=== PATIENT | male | born 1955 | race Caucasian/White ===

== ENCOUNTER 2022-02-15 14:22 | Inpatient (IN) ==
[2022-02-15] MEDS ORDERED: ONDANSETRON INJ 2 MG/ML 2 ML VIAL IV STA (14:28)
[2022-02-15] MEDS ORDERED: ONDANSETRON INJ 2 MG/ML 2 ML VIAL IV ONE (14:30)
[2022-02-15] MEDS ORDERED: HEPARIN (PORCINE) 1000 UNIT/ML 10 ML (CATH LAB USE ONLY) ONE (14:31)
[2022-02-15] MEDS ORDERED: fentaNYL citrate 100 MCG/2 ML VIAL ONE (14:31)
[2022-02-15] MEDS ORDERED: MIDAZOLAM HCL 1 MG/ML 2ML VIAL ONE (14:31)
[2022-02-15] MEDS ORDERED: niCARdipine HCL INJ 2.5 MG/ML 10 ML AMP ONE (14:31)
[2022-02-15] MEDS ORDERED: NITROGLYCERIN/D5W 100MCG/ML 20ML SYR ONE (14:33)
[2022-02-15] MEDS ORDERED: LIDOCAINE 1% LOCAL 20 ML VIAL ONE (14:36)
[2022-02-15] MEDS ORDERED: STAT IV Infusion **Titration per Protocol STA ×2 (14:37→15:16)
[2022-02-15] MEDS ORDERED: NITROGLYCERIN SL 0.4 MG/TAB TAB SL STA (14:43)
[2022-02-15] MEDS ORDERED: dilTIAZem HCL 125 MG in DEXTROSE 5% 100 ML IV SCH (14:45)
--- NOTE | 2022-02-15 14:48 | Emergency Department Note ---
Impression & Plan Cardiac arrest due to underlying cardiac condition, Atrial fibrillation with RVR, Chest pain, Elevated LFTs ED Provider Note Provider: Stanislaw Kimble MD DATE OF SERVICE: 02/15/2022 CHIEF COMPLAINT: Chest pain, cardiac arrest HISTORY OF PRESENT ILLNESS: Patient is a 66-year-old gentleman reported history of atrial fibrillation on sotalol and Xarelto evidently today was playing golf. At a golf course in [facility] [place] and began to experience chest pain. Patient evidently collapsed at that point and received approximately 5 to 6 minutes of CPR. Patient was shocked by an AED once and had return of pulses and awakened. Evidently was hypotensive initially for EMS and [facility] was activated. They given 2 and half liters of IV fluid as well as a heparin bolus and was brought here for possible cardiac intervention. There is concern on the prehospital EKG for an inferior STEMI and a heart was called initially. Patient had some nausea and received Zofran in route. Patient upon arrival without chest pain. Patient later complained of a little bit of right-sided chest discomfort and again had some nausea requiring Zofran. Patient denies a history of cardiac catheterization to his knowledge but states they were considering doing an ablation on him due to his refractory A. fib. Patient had prior cardiac care in [place]. Patient received aspirin prior to arrival. Patient denies other URI symptoms or abdominal pain. REVIEW OF SYSTEMS: A total of 10 review of systems was obtained and negative except as stated above in the HPI. PAST MEDICAL HISTORY: As noted above MEDICATIONS: Reviewed home medications with the patient include sotalol and Xarelto SOCIAL HISTORY: Former smoker, PHYSICAL EXAM: GENERAL: alert and oriented on the stretcher Head: normocephalic and atraumatic EYES: No injection, discharge or icterus. PERRL, EOMI. NECK: Trachea midline. Supple. ENT: Mucous membranes pink and moist. Pharynx without erythema or exudate. LUNGS: Airway patent. No retractions. Breath sounds clear with good air entry bilaterally. HEART: Regular rate and rhythm. No chest wall tenderness ABDOMEN: Soft and non-tender, without guarding or rebound. SKIN: Acyanotic, warm, dry, without rashes EXTREMITIES: Without swelling, tenderness or deformity NEUROLOGICAL: No focal deficits. No aphasia. No facial droop or slurred speech. Normal strength and tone in the extremities. Sensation to gross touch normal. Ambulatory. EK bpm atrial fibrillation with rapid ventricular sponsor occasional PVC. No acute ST segment elevation with ST depressions inferiorly and anteriorly with QTC 532. EK bpm atrial fibrillation with rapid ventricular response. Compared to previous persistent inferior anterior ST depressions EK bpm atrial fibrillation occasional PVC. Continued inferior lateral ST depression. QTc 504. CONTINUOUS CARDIAC MONITORING: was ordered and showed a heart rate of 80s-120s bpm in atrial fibrillation Patient's laboratory studies and imaging reviewed. Differential includes Cardiac ischemia, aortic dissection, pulmonary embolism, pneumothorax, pneumonia, pericarditis, myocarditis, esophageal rupture, GERD, cholecystitis, pancreatitis, musculoskeletal, as well as other pathologies. IMPRESSION/MEDICAL DECISION MAKING: Patient history of A. fib. Rapid A. fib upon arrival and nauseous. Little bit of right-sided chest pain develops while here. service porter at bedside his heart alert was called prior to arrival. EKG at 1424 and 1430 reviewed with the residential pest control technician at bedside this represents atrial fibrillation with low ventricular spots but does not believe the patient at this time needs a cardiac catheterization at this time the patient's with minimal pain and he does not believe there is an acute STEMI. He recommended diltiazem. This drip was ordered for some rate control. Given with a nitro as he does develop little bit of chest pain. Blood work was sent. Patient's pressure initially reported as high later returns low and diltiazem was held and received some IV fluids. Call was placed to Cardiology Dr. Howard and a stat cardiac echo was ordered. Blood work without anemia or leukocytosis. Negative COVID. Some hyponatremia noted with some renal dysfunction with creat inine 1.8. Some AST and ALT elevation noted with bilirubin 2.5. Again denies significant abdominal pain. Lipase minimally elevated. Question however if this is related to the arrest situation. Hypotensive here but will be cautious given his A. fib to prevent significant arrhythmia. High-sensitivity does return elevated although patient's pain is resolved. Cardiology at bedside with the patient and states that his echo did not show any regional wall motion abnormalities with a good EF. Norepinephrine ggt is at bedside NOT on; again maintaining MAP above 65 here. Hospitalist updated. Patient pain-free. updated later when she arrives. Cardiology recommends heparin and ICU care. DIAGNOSIS: Cardiac arrest, atrial fibrillation with rapid ventricular response, elevated LFTs, chest pain DISPOSITION: Hospitalist will evaluate Patient was agreeable with this plan. Critical Care I have personally spent 62 minutes of critical care time in the direct management of this patient. This includes bedside care, interpretation of di agnostic studies, and testing, discussion with consultants, patient, and family members, and other required patient management activities. These 62 minutes is in excess of all separately billable procedures. Past Med/Surg History Social History Smoking Status: Former smoker Tobacco Type: Cigarettes Preferred Language: Gibralt[place] Feels Safe at Home: Yes Allergies Allergies Allergy/AdvReac Type Severity Reaction Status Date / Time No Known Allergies Allergy Unverified 02/15/22 15:15 Home Meds Home Medications Medication Instructions Recorded Confirmed ascorbic acid (vitamin C) 500 mg 500 mg PO DAILY 02/15/22 02/15/22 tablet (Vitamin C) cholecalciferol (vitamin D3) 25 25 mcg PO DAILY 02/15/22 02/15/22 mcg (1,000 unit) tablet (Vitamin D3) cyanocobalamin (vitamin B-12) 1,000 mcg IM MONTHLY 02/15/22 02/15/22 1,000 mcg/mL injection solution finasteride 5 mg tablet 5 mg PO DAILY 02/15/22 02/15/22 furosemide 40 mg tablet 40 mg PO DAILY 02/15/22 02/15/22 lisinopril 20 mg tablet 20 mg PO DAILY 02/15/22 02/15/22 rivaroxaban 20 mg tablet (Xarelto) 20 mg PO DAILY 02/15/22 02/15/22 sotalol 120 mg tablet 120 mg PO BID 02/15/22 02/15/22 Results & Data (ED) Vital Signs Vital Signs - 24 hr 02/15/22 14:33 02/15/22 14:40 02/15/22 14:41 Temperature 36.5 C Temperature Source Oral Pulse Rate 117 H 112 H 103 H Pulse Rate [Apical] Pulse Rate from SpO2 Sensor 111 H 123 H Pulse Rhythm Regular Pulse Strength Normal Respiratory Rate 15 18 19 Respiratory Effort / Characteristics Non-Labored Spontaneous Respiratory Depth Normal Blood Pressure Blood Pressure [Right Arm] Blood Pressure Mean Blood Pressure Mean [Right Arm] Pulse Oximetry 98 97 94 Oxygen Delivery Method Nasal Cannula Sepsis Recent Fever Within 48 Hours No Sepsis New/Unexplained Change in Mental Status No Sepsis Action Taken by Nursing No Action Required 02/15/22 14:43 02/15/22 14:46 02/15/22 14:50 Temperature Temperature Source Pulse Rate 105 H 112 H Pulse Rate [Apical] Pulse Rate from SpO2 Sensor 121 H 78 99 H Pulse Rhythm Pulse Strength Respiratory Rate 21 15 17 Respiratory Effort / Characteristics Respiratory Depth Blood Pressure 161/128 H 87/73 L Blood Pressure [Right Arm] Blood Pressure Mean 139 77 38 Blood Pressure Mean [Right Arm] Pulse Oximetry 86 L 95 94 Oxygen Delivery Method Sepsis Recent Fever Within 48 Hours Sepsis New/Unexplained Change in Mental Status Sepsis Action Taken by Nursing 02/15/22 14:55 02/15/22 14:57 02/15/22 15:00 Temperature Temperature Source Pulse Rate 110 H 92 H Pulse Rate [Apical] 97 H Pulse Rate from SpO2 Sensor 91 H 95 H Pulse Rhythm Pulse Strength Respiratory Rate 15 20 16 Respiratory Effort / Characteristics Non-Labored Respiratory Depth Normal Blood Pressure Blood Pressure [Right Arm] 80/35 L Blood Pressure Mean Blood Pressure Mean [Right Arm] 50 Pulse Oximetry 91 94 94 Oxygen Delivery Method Room Air Sepsis Recent Fever Within 48 Hours Sepsis New/Unexplained Change in Mental Status Sepsis Action Taken by Nursing 02/15/22 15:01 02/15/22 15:03 02/15/22 15:05 Temperature Temperature Source Pulse Rate 94 H 95 H 97 H Pulse Rate [Apical] Pulse Rate from SpO2 Sensor 96 H 91 H 99 H Pulse Rhythm Pulse Strength Respiratory Rate 19 18 15 Respiratory Effort / Characteristics Respiratory Depth Blood Pressure 89/70 L 92/68 L 94/80 L Blood Pressure [Right Arm] Blood Pressure Mean 76 76 84 Blood Pressure Mean [Right Arm] Pulse Oximetry 95 93 94 Oxygen Delivery Method Sepsis Recent Fever Within 48 Hours Sepsis New/Unexplained Change in Mental Status Sepsis Action Taken by Nursing 02/15/22 15:07 02/15/22 15:10 02/15/22 15:13 Temperature Temperature Source Pulse Rate 105 H 99 H 101 H Pulse Rate [Apical] Pulse Rate from SpO2 Sensor 95 H 94 H Pulse Rhythm Pulse Strength Respiratory Rate 20 21 16 Respiratory Effort / Characteristics Respiratory Depth Blood Pressure 79/57 L 72/47 L Blood Pressure [Right Arm] Blood Pressure Mean 64 55 Blood Pressure Mean [Right Arm] Pulse Oximetry 94 97 97 Oxygen Delivery Method Room Air Sepsis Recent Fever Within 48 Hours Sepsis New/Unexplained Change in Mental Status Sepsis Action Taken by Nursing 02/15/22 15:15 02/15/22 15:16 02/15/22 15:20 Temperature Temperature Source Pulse Rate 115 H 105 H 95 H Pulse Rate [Apical] Pulse Rate from SpO2 Sensor 107 H 103 H 97 H Pulse Rhythm Pulse Strength Respiratory Rate 18 27 H 28 H Respiratory Effort / Characteristics Respiratory Depth Blood Pressure 78/53 L Blood Pressure [Right Arm] Blood Pressure Mean 61 Blood Pressure Mean [Right Arm] Pulse Oximetry 94 94 99 Oxygen Delivery Method Sepsis Recent Fever Within 48 Hours Sepsis New/Unexplained Change in Mental Status Sepsis Action Taken by Nursing 02/15/22 15:22 02/15/22 15:25 02/15/22 15:30 Temperature Temperature Source Pulse Rate 104 H 91 H 100 H Pulse Rate [Apical] Pulse Rate from SpO2 Sensor 95 H 76 97 H Pulse Rhythm Pulse Strength Respiratory Rate 15 13 18 Respiratory Effort / Characteristics Respiratory Depth Blood Pressure 86/44 L 88/56 L 95/62 L Blood Pressure [Right Arm] Blood Pressure Mean 58 66 73 Blood Pressure Mean [Right Arm] Pulse Oximetry 98 95 98 Oxygen Delivery Method Sepsis Recent Fever Within 48 Hours Sepsis New/Unexplained Change in Mental Status Sepsis Action Taken by Nursing 02/15/22 15:35 02/15/22 15:36 02/15/22 15:37 Temperature Temperature Source Pulse Rate 117 H 116 H 110 H Pulse Rate [Apical] Pulse Rate from SpO2 Sensor 95 H 99 H 98 H Pulse Rhythm Pulse Strength Respiratory Rate 17 17 18 Respiratory Effort / Characteristics Respiratory Depth Blood Pressure 93/58 L Blood Pressure [Right Arm] Blood Pressure Mean 69 69 Blood Pressure Mean [Right Arm] Pulse Oximetry 97 96 96 Oxygen Delivery Method Sepsis Recent Fever Within 48 Hours Sepsis New/Unexplained Change in Mental Status Sepsis Action Taken by Nursing 02/15/22 15:40 02/15/22 15:41 02/15/22 15:43 Temperature Temperature Source Pulse Rate 96 H 102 H 99 H Pulse Rate [Apical] Pulse Rate from SpO2 Sensor 91 H 100 H 86 Pulse Rhythm Pulse Strength Respiratory Rate 20 22 20 Respiratory Effort / Characteristics Respiratory Depth Blood Pressure 68/53 L 89/63 L Blood Pressure [Right Arm] Blood Pressure Mean 58 71 Blood Pressure Mean [Right Arm] Pulse Oximetry 99 98 97 Oxygen Delivery Method Sepsis Recent Fever Within 48 Hours Sepsis New/Unexplained Change in Mental Status Sepsis Action Taken by Nursing 02/15/22 15:45 02/15/22 15:50 02/15/22 15:55 Temperature Temperature Source Pulse Rate 107 H 110 H 87 Pulse Rate [Apical] Pulse Rate from SpO2 Sensor 93 H 105 H 77 Pulse Rhythm Pulse Strength Respiratory Rate 22 23 16 Respiratory Effort / Characteristics Respiratory Depth Blood Pressure 96/52 L 87/54 L Blood Pressure [Right Arm] Blood Pressure Mean 66 65 Blood Pressure Mean [Right Arm] Pulse Oximetry 98 98 94 Oxygen Delivery Method Sepsis Recent Fever Within 48 Hours Sepsis New/Unexplained Change in Mental Status Sepsis Action Taken by Nursing 02/15/22 16:00 02/15/22 16:01 02/15/22 16:05 Temperature Temperature Source Pulse Rate 102 H 86 114 H Pulse Rate [Apical] Pulse Rate from SpO2 Sensor 93 H 87 91 H Pulse Rhythm Pulse Strength Respiratory Rate 22 19 17 Respiratory Effort / Characteristics Respiratory Depth Blood Pressure 106/52 L 102/74 Blood Pressure [Right Arm] Blood Pressure Mean 70 83 Blood Pressure Mean [Right Arm] Pulse Oximetry 95 96 96 Oxygen Delivery Method Sepsis Recent Fever Within 48 Hours Sepsis New/Unexplained Change in Mental Status Sepsis Action Taken by Nursing 02/15/22 16:10 02/15/22 16:11 02/15/22 16:15 Temperature Temperature Source Pulse Rate 98 H 102 H 102 H Pulse Rate [Apical] Pulse Rate from SpO2 Sensor 90 88 101 H Pulse Rhythm Pulse Strength Respiratory Rate 17 20 21 Respiratory Effort / Characteristics Respiratory Depth Blood Pressure 88/70 L Blood Pressure [Right Arm] Blood Pressure Mean 76 Blood Pressure Mean [Right Arm] Pulse Oximetry 95 96 97 Oxygen Delivery Method Sepsis Recent Fever Within 48 Hours Sepsis New/Unexplained Change in Mental Status Sepsis Action Taken by Nursing 02/15/22 16:17 02/15/22 16:20 02/15/22 16:25 Temperature Temperature Source Pulse Rate 106 H 96 H 99 H Pulse Rate [Apical] Pulse Rate from SpO2 Sensor 96 H 84 82 Pulse Rhythm Pulse Strength Respiratory Rate 19 18 19 Respiratory Effort / Characteristics Respiratory Depth Blood Pressure 89/66 L 92/61 L Blood Pressure [Right Arm] Blood Pressure Mean 73 71 Blood Pressure Mean [Right Arm] Pulse Oximetry 97 96 97 Oxygen Delivery Method Sepsis Recent Fever Within 48 Hours Sepsis New/Unexplained Change in Mental Status Sepsis Action Taken by Nursing 02/15/22 16:30 02/15/22 16:35 02/15/22 16:40 Temperature Temperature Source Pulse Rate 119 H 112 H 116 H Pulse Rate [Apical] Pulse Rate from SpO2 Sensor 95 H 87 108 H Pulse Rhythm Pulse Strength Respiratory Rate 22 20 19 Respiratory Effort / Characteristics Respiratory Depth Blood Pressure 92/72 L 101/72 Blood Pressure [Right Arm] Blood Pressure Mean 78 81 Blood Pressure Mean [Right Arm] Pulse Oximetry 95 95 100 Oxygen Delivery Method Sepsis Recent Fever Within 48 Hours Sepsis New/Unexplained Change in Mental Status Sepsis Action Taken by Nursing 02/15/22 16:41 02/15/22 16:45 02/15/22 16:50 Temperature Temperature Source Pulse Rate 112 H 104 H 115 H Pulse Rate [Apical] Pulse Rate from SpO2 Sensor 101 H 83 108 H Pulse Rhythm Pulse Strength Respiratory Rate Respiratory Effort / Characteristics Respiratory Depth Blood Pressure 87/68 L 99/71 L Blood Pressure [Right Arm] Blood Pressure Mean 74 80 Blood Pressure Mean [Right Arm] Pulse Oximetry 96 99 95 Oxygen Delivery Method Sepsis Recent Fever Within 48 Hours Sepsis New/Unexplained Change in Mental Status Sepsis Action Taken by Nursing 02/15/22 16:51 02/15/22 16:55 02/15/22 17:00 Temperature Temperature Source Pulse Rate 117 H 96 H 96 H Pulse Rate [Apical] Pulse Rate from SpO2 Sensor 98 H 84 84 Pulse Rhythm Pulse Strength Respiratory Rate Respiratory Effort / Characteristics Respiratory Depth Blood Pressure 105/77 99/77 L 103/79 Blood Pressure [Right Arm] Blood Pressure Mean 86 84 87 Blood Pressure Mean [Right Arm] Pulse Oximetry 98 97 99 Oxygen Delivery Method Sepsis Recent Fever Within 48 Hours Sepsis New/Unexplained Change in Mental Status Sepsis Action Taken by Nursing 02/15/22 17:05 02/15/22 17:10 02/15/22 17:11 Temperature Temperature Source Pulse Rate 101 H 107 H 88 Pulse Rate [Apical] Pulse Rate from SpO2 Sensor 99 H 88 Pulse Rhythm Pulse Strength Respiratory Rate 20 22 Respiratory Effort / Characteristics Respiratory Depth Blood Pressure 109/76 107/75 Blood Pressure [Right Arm] Blood Pressure Mean 87 85 Blood Pressure Mean [Right Arm] Pulse Oximetry 99 98 Oxygen Delivery Method Sepsis Recent Fever Within 48 Hours Sepsis New/Unexplained Change in Mental Status Sepsis Action Taken by Nursing Laboratory Data Result diagrams: 02/15/22 14:38 02/15/22 14:38 Lab Results 02/15/22 02/15/22 02/15/22 Range/Units 14:37 14:38 14:38 WBC 8.96 (4.8-10.8) K/uL RBC 4.58 L (4.7-6.1) M/uL Hgb 14.6 (14.0-18.0) g/dL POC Hgb (14.0-18.0) g/dl Hct 42.2 (42-52) % POC Hct (42-52) % MCV 92.1 (80-100) fL MCH 31.9 (25-34) pg MCHC 34.6 (32-36) g/dL RDW Std Deviation 46.4 H (36.4-46.3) fL RDW Coeff of Krystle 13.8 (11.5-14.5) % Plt Count 191 (130-400) K/uL MPV 13.0 H (7.4-10.4) fL Immature Gran % (Auto) 0.2 % Neut % (Auto) 75.4 % Lymph % (Auto) 14.8 % [place] % (Auto) 9.3 % Eos % (Auto) 0.1 % Baso % (Auto) 0.2 % Neut # (Auto) 6.75 H (1.4-6.5) K/uL Lymph # (Auto) 1.33 (1.2-3.4) K/uL [place] # (Auto) 0.83 H (0.11-0.59) K/uL Eos # (Auto) 0.01 (0-0.5) K/uL Baso # (Auto) 0.02 (0-0.2) K/uL Immature Gran # (Auto) 0.02 (0.00-0.02) K/uL PT Cancelled INR Cancelled APTT Cancelled PTT Ratio Cancelled POC Sodium (135-144) mmol/L Sodium (136-145) mmol/L POC Potassium (3.3-5.0) mmol/L Potassium (3.5-5.1) mmol/L POC Chloride (101-112) mmol/L Chloride (98-107) mmol/L Carbon Dioxide (21-32) mmol/L POC Total CO2 (24-31) mmol/L Anion Gap (3-11) POC Anion Gap (16-25) mmol/L POC BUN (7-18) mg/dl BUN (6-23) mg/dl Creatinine (0.6-1.4) mg/dl POC Creatinine (0.6-1.3) mg/dl Est Cr Clr Drug Dosing ml/min Est GFR ( Amer) ml/min Est GFR (Non-Af Amer) ml/min BUN/Creatinine Ratio (10-20) Glucose (70-99(Fasting)) mg/dl POC Glucose (other) (70-99) mg/dl Calcium (8.5-10.1) mg/dl POC Ioniz Calcium Naty (1.12-1.32) mmol/l Total Bilirubin (0.2-1.0) mg/dl AST (13-39) U/L ALT (7-52) U/L Alkaline Phosphatase (34-104) U/L Troponin I High Sens 803.4 H* (0-20) pg/ml Total Protein (6.0-8.3) gm/dl Albumin (3.4-5.0) gm/dl Globulin (2.5-4.0) gm/dl Albumin/Globulin Ratio (0.9-2) Lipase (11-82) U/L SARS-CoV-2, RNA, NAAT (NEGATIVE) 02/15/22 02/15/22 02/15/22 Range/Units 14:38 14:40 14:40 WBC (4.8-10.8) K/uL RBC (4.7-6.1) M/uL Hgb (14.0-18.0) g/dL POC Hgb 15.6 (14.0-18.0) g/dl Hct (42-52) % POC Hct 46 (42-52) % MCV (80-100) fL MCH (25-34) pg MCHC (32-36) g/dL RDW Std Deviation (36.4-46.3) fL RDW Coeff of Krystle (11.5-14.5) % Plt Count (130-400) K/uL MPV (7.4-10.4) fL Immature Gran % (Auto) % Neut % (Auto) % Lymph % (Auto) % [place] % (Auto) % Eos % (Auto) % Baso % (Auto) % Neut # (Auto) (1.4-6.5) K/uL Lymph # (Auto) (1.2-3.4) K/uL [place] # (Auto) (0.11-0.59) K/uL Eos # (Auto) (0-0.5) K/uL Baso # (Auto) (0-0.2) K/uL Immature Gran # (Auto) (0.00-0.02) K/uL PT INR APTT PTT Ratio POC Sodium 132 L (135-144) mmol/L Sodium 131 L (136-145) mmol/L POC Potassium 3.8 (3.3-5.0) mmol/L Potassium 3.8 (3.5-5.1) mmol/L POC Chloride 98 L (101-112) mmol/L Chloride 96 L (98-107) mmol/L Carbon Dioxide 22 (21-32) mmol/L POC Total CO2 22 L (24-31) mmol/L Anion Gap 13 H (3-11) POC Anion Gap 17.0 (16-25) mmol/L POC BUN 27 H (7-18) mg/dl BUN 28 H (6-23) mg/dl Creatinine 1.84 H (0.6-1.4) mg/dl POC Creatinine 2.0 H (0.6-1.3) mg/dl Est Cr Clr Drug Dosing 55.0 ml/min Est GFR ( Amer) 43.0 ml/min Est GFR (Non-Af Amer) 37.1 ml/min BUN/Creatinine Ratio 15.2 (10-20) Glucose 158 H (70-99(Fasting)) mg/dl POC Glucose (other) 167 H (70-99) mg/dl Calcium 7.6 L (8.5-10.1) mg/dl POC Ioniz Calcium Naty 0.92 L (1.12-1.32) mmol/l Total Bilirubin 2.5 H (0.2-1.0) mg/dl AST 618 H (13-39) U/L ALT 177 H (7-52) U/L Alkaline Phosphatase 370 H (34-104) U/L Troponin I High Sens (0-20) pg/ml Total Protein 5.6 L (6.0-8.3) gm/dl Albumin 2.7 L (3.4-5.0) gm/dl Globulin 2.9 (2.5-4.0) gm/dl Albumin/Globulin Ratio 0.9 (0.9-2) Lipase 149 H (11-82) U/L SARS-CoV-2, RNA, NAAT NEGATIVE (NEGATIVE) 02/15/22 Range/Units 16:11 WBC (4.8-10.8) K/uL RBC (4.7-6.1) M/uL Hgb (14.0-18.0) g/dL POC Hgb (14.0-18.0) g/dl Hct (42-52) % POC Hct (42-52) % MCV (80-100) fL MCH (25-34) pg MCHC (32-36) g/dL RDW Std Deviation (36.4-46.3) fL RDW Coeff of Krystle (11.5-14.5) % Plt Count (130-400) K/uL MPV (7.4-10.4) fL Immature Gran % (Auto) % Neut % (Auto) % Lymph % (Auto) % [place] % (Auto) % Eos % (Auto) % Baso % (Auto) % Neut # (Auto) (1.4-6.5) K/uL Lymph # (Auto) (1.2-3.4) K/uL [place] # (Auto) (0.11-0.59) K/uL Eos # (Auto) (0-0.5) K/uL Baso # (Auto) (0-0.2) K/uL Immature Gran # (Auto) (0.00-0.02) K/uL PT Cancelled INR Cancelled APTT Cancelled PTT Ratio Cancelled POC Sodium (135-144) mmol/L Sodium (136-145) mmol/L POC Potassium (3.3-5.0) mmol/L Potassium (3.5-5.1) mmol/L POC Chloride (101-112) mmol/L Chloride (98-107) mmol/L Carbon Dioxide (21-32) mmol/L POC Total CO2 (24-31) mmol/L Anion Gap (3-11) POC Anion Gap (16-25) mmol/L POC BUN (7-18) mg/dl BUN (6-23) mg/dl Creatinine (0.6-1.4) mg/dl POC Creatinine (0.6-1.3) mg/dl Est Cr Clr Drug Dosing ml/min Est GFR ( Amer) ml/min Est GFR (Non-Af Amer) ml/min BUN/Creatinine Ratio (10-20) Glucose (70-99(Fasting)) mg/dl POC Glucose (other) (70-99) mg/dl Calcium (8.5-10.1) mg/dl POC Ioniz Calcium Naty (1.12-1.32) mmol/l Total Bilirubin (0.2-1.0) mg/dl AST (13-39) U/L ALT (7-52) U/L Alkaline Phosphatase (34-104) U/L Troponin I High Sens (0-20) pg/ml Total Protein (6.0-8.3) gm/dl Albumin (3.4-5.0) gm/dl Globulin (2.5-4.0) gm/dl Albumin/Globulin Ratio (0.9-2) Lipase (11-82) U/L SARS-CoV-2, RNA, NAAT (NEGATIVE) Administered Medications Diltiazem HCl 125 mg/ Dextrose 125 mls @ 0 mls/hr IV .Q0M [facility]; Protocol Stop: 03/17/22 14:44 Last Titration: 02/15/22 15:12 Dose: 0 mg/hr, 0 mls/hr Documented by: [id number] Cosigned by: [id number] Admin: 02/15/22 14:53 Dose: 5 mg/hr, 5 mls/hr Documented by: [id number] Cosigned by: [id number] Heparin Sodium/Dextrose (Heparin Sodium/Dextrose) 25,000 units in 500 mls @ 36 mls/hr IV .[id number] [facility]; Protocol Stop: 03/17/22 16:14 Last Admin: 02/15/22 16:00 Dose: 1,800 units/hr, 36 mls/hr Documented by: [id number] Cosigned by: [id number] Discontinued Medications Fentanyl Citrate (Fentanyl Citrate 100 Mcg/2 Ml Vial) Confirm Administered Dose 100 mcg .ROUTE .STK-MED ONE Stop: 02/15/22 14:32 Last Admin: 02/15/22 16:04 Dose: Not Given Documented by: [id number] Heparin Sodium (Porcine) (Heparin (Porcine) 1000 Unit/Ml 10 Ml ([employer] Use Only)) Confirm Administered Dose 10,000 units .ROUTE .STK-MED ONE Stop: 02/15/22 14:32 Last Admin: 02/15/22 16:04 Dose: Not Given Documented by: [id number] Heparin Sodium/Dextrose (Heparin Iv Adult Wt-Based Standard *No* Bolus Protocol) 1 ea N/A ONE ONE; Protocol Stop: 02/15/22 15:48 Last Admin: 02/15/22 16:02 Dose: Not Given Documented by: [id number] Heparin Sodium/Dextrose (Heparin Iv Adult Wt-Based Standard *No* Bolus Protocol) 1 ea IV Q20M [facility]; Protocol Stop: 03/17/22 15:59 Last Admin: 02/15/22 16:19 Dose: Not Given Documented by: [id number] Admin: 02/15/22 16:02 Dose: Not Given Documented by: [id number] Heparin Sodium/Sodium Chloride (Heparin In Nss Infusion 1000 Unit/500 Ml (2 U/Ml) Bag) Confirm Administered Dose 3,000 units IV .STK-MED ONE Stop: 02/15/22 14:32 Last Admin: 02/15/22 16:04 Dose: Not Given Documented by: [id number] Sodium Chloride (Nss 1000ml) 1,000 mls @ 999 mls/hr IV .[id number] ONE Stop: 02/15/22 15:56 Last Infusion: 02/15/22 15:34 Dose: 0 mls/hr Documented by: [id number] Admin: 02/15/22 15:13 Dose: 999 mls/hr Documented by: [id number] Lidocaine HCl (Lidocaine 1% Local 20 Ml Vial) Confirm Administered Dose 20 ml .ROUTE .STK-MED ONE Stop: 02/15/22 14:37 Last Admin: 02/15/22 16:03 Dose: Not Given Documented by: [id number] Midazolam HCl (Midazolam Hcl 1 Mg/Ml 2ml Vial) Confirm Administered Dose 2 mg .ROUTE .STK-MED ONE Stop: 02/15/22 14:32 Last Admin: 02/15/22 16:03 Dose: Not Given Documented by: [id number] Nicardipine HCl (Nicardipine Hcl Inj 2.5 Mg/Ml 10 Ml Amp) Confirm Administered Dose 25 mg .ROUTE .STK-MED ONE Stop: 02/15/22 14:32 Last Admin: 02/15/22 16:03 Dose: Not Given Documented by: [id number] Nitroglycerin (Nitroglycerin Sl 0.4 Mg/Tab Tab) 0.4 mg SL NOW STA Stop: 02/15/22 14:44 Last Admin: 02/15/22 14:59 Dose: 0.4 mg Documented by: [id number] Nitroglycerin/Dextrose (Nitroglycerin/D5w 100mcg/Ml 20ml Syr) Confirm Administered Dose 2,000 mcg .ROUTE .STK-MED ONE Stop: 02/15/22 14:34 Last Admin: 02/15/22 16:03 Dose: Not Given Documented by: [id number] Norepinephrine Bitartrate (Norepinephrine/D5w 4 Mg/250 Ml) Confirm Administered Dose 4 mg IV .STK-MED ONE Stop: 02/15/22 15:14 Last Admin: 02/15/22 15:25 Dose: Not Given Documented by: [id number] Ondansetron HCl (Ondansetron Inj 2 Mg/Ml 2 Ml Vial) 4 mg IV NOW ONE Stop: 02/15/22 14:31 Last Admin: 02/15/22 14:32 Dose: 4 mg Documented by: [id number] Ondansetron HCl (Ondansetron Inj 2 Mg/Ml 2 Ml Vial) 4 mg IV NOW STA Stop: 02/15/22 14:29 Last Admin: 02/15/22 14:54 Dose: Not Given Documented by: [id number] Imaging Data Radiologist's Impression: Chest X-Ray 02/15/22 14:28 XR chest 1V portable CLINICAL HISTORY: Atypical chest pain. COMPARISON STUDY: No previous studies for comparison. FINDINGS: Lung volumes are normal. No pneumothorax or pleural effusion is noted. There is no consolidation. Moderate enlargement of the cardiac silhouette is noted. There is possible pulmonary vascular congestion. IMPRESSION: Cardiomegaly. Pulmonary vascular congestion without overt pulmonary edema. ACT 112: Negative or not required by law. Electronically signed by: Ike Avalos M.D. 02/15/2022 3:19 PM Discharge Plan Visit Data Chief Complaint: Heart Alert ED Provider: Stanislaw Kimble Discharge Problem: Cardiac arrest due to underlying cardiac condition, Atrial fibrillation with RVR, Chest pain, Elevated LFTs Patient Disposition: Admitted As Inpatient Discharge Instructions Interventions: ED Discharge Assessment Last Done: 02/15/22 17:23 Forms Stand Alone Forms: [email or web address] Prescriptions Prescriptions: No Action furosemide 40 mg Tablet 40 mg PO DAILY RF: 0 lisinopril 20 mg Tablet 20 mg PO DAILY RF: 0 sotalol 120 mg Tablet 120 mg PO BID RF: 0 ascorbic acid (vitamin C) [Vitamin C] 500 mg Tablet 500 mg PO DAILY RF: 0 cyanocobalamin (vitamin B-12) [Vitamin B-12] 1,000 mcg/mL Solution 1,000 mcg IM MONTHLY RF: 0 finasteride 5 mg Tablet 5 mg PO DAILY RF: 0 cholecalciferol (vitamin D3) [Vitamin D3] 25 mcg (1,000 unit) Tablet 25 mcg PO DAILY RF: 0 Xarelto 20 mg Tablet 20 mg PO DAILY RF: 0 Referrals Referrals: PCP,NO [Primary Care Provider] -
[2022-02-15 14:53] LABS: iSTAT Hemoglobin 15.6 g/dl (14.0-18.0); iSTAT Ionized Calcium 0.92 mmol/l (1.12-1.32); iSTAT Potassium 3.8 mmol/L (3.3-5.0)
[2022-02-15] MEDS ORDERED: SODIUM CHLORIDE 0.9% 1000ML 1,000 ML IV ONE (14:56)
[2022-02-15] MEDS ORDERED: NOREPINEPHRINE/D5W 4 MG/250 ML IV ONE (15:13)
--- NOTE | 2022-02-15 15:20 | XRay Report ---
XR chest 1V portable CLINICAL HISTORY: Atypical chest pain. COMPARISON STUDY: No previous studies for comparison. FINDINGS: Lung volumes are normal. No pneumothorax or pleural effusion is noted. There is no consolid ation. Moderate enlargement of the cardiac silhouette is noted. There is possible pulmonary vascular congestion. IMPRESSION: Cardiomegaly. Pulmonary vascular congestion without overt pulmonary edema. ACT 112: Negative or not required by law. Electronically signed by: Ike Avalos M.D. 02/15/2022 3:19 PM
[2022-02-15 15:25] LABS: Albumin Globulin Ratio 0.9 (0.9-2); Albumin Level 2.7 gm/dl (3.4-5.0); BUN Creatinine Ratio 15.2 (10-20); Bilirubin,Total 2.5 mg/dl (0.2-1.0); Calcium 7.6 mg/dl (8.5-10.1); Est GFR (Non-African American) 37.1 ml/min; Globulin 2.9 gm/dl (2.5-4.0); Potassium 3.8 mmol/L (3.5-5.1); Total Protein 5.6 gm/dl (6.0-8.3)
[2022-02-15 15:27] LABS: Basophils # (auto) 0.02 K/uL (0-0.2); Basophils % (auto) 0.2 %; Eosinophils # (auto) 0.01 K/uL (0-0.5); Eosinophils % (auto) 0.1 %; Hematocrit (blood only) 42.2 % (42-52); Hemoglobin 14.6 g/dL (14.0-18.0); Immature Granulocytes # (auto) 0.02 K/uL (0.00-0.02); Immature Granulocytes % (auto) 0.2 %; Lymphocytes # (auto) 1.33 K/uL (1.2-3.4); Lymphocytes % (auto) 14.8 %; Mean Corpuscular Hemoglobin 31.9 pg (25-34); Mean Corpuscular Hgb Conc 34.6 g/dL (32-36); Mean Corpuscular Volume 92.1 fL (80-100); Monocytes # (auto) 0.83 K/uL (0.11-0.59); Monocytes % (auto) 9.3 %; Neutrophils # (auto) 6.75 K/uL (1.4-6.5); Neutrophils % (auto) 75.4 %; Platelet Count 191 K/uL (130-400); RDW Coefficient of Variation 13.8 % (11.5-14.5); RDW Standard Deviation 46.4 fL (36.4-46.3); Red Blood Count 4.58 M/uL (4.7-6.1); White Blood Count 8.96 K/uL (4.8-10.8)
[2022-02-15] MEDS ORDERED: NOREPINEPHRINE/D5W 4 MG/250 ML PLCT IV SCH (15:30)
[2022-02-15] MEDS ORDERED: Heparin IV Adult Wt-Based Standard *NO* Bolus Protocol ONE (15:47)
[2022-02-15] MEDS: HEPARIN SODIUM/DEXTROSE 25,000 UNITS/500 ML BAG IV SCH (16:00)
[2022-02-15] MEDS: Heparin IV Adult Wt-Based Standard *NO* Bolus Protocol IV SCH ×3 (16:02→19:07)
--- NOTE | 2022-02-15 16:19 | Cardiology Consultation ---
Date of Consultation February 15, 2022 Assessment & Plan (1) Cardiac arrest due to underlying cardiac condition: (2) Atrial fibrillation with RVR: The patient should be admitted to the ICU post cardiac arrest. I would hold his Xarelto and start him on a heparin drip as you have done. Also, I w ould continue his sotalol 120 mg twice daily. The diltiazem infusion and Levophed can be weaned when appropriate. I would obtain cardiac markers for now provide supportive care. History of Present Illness History of Present Illness This is a 66-year-old male patient from [facility] [address]. He has a previous cardiac history that dates back to 2011 when he had his first episode of what he describes as atrial fibrillation and possibly heart failure however, he is not a great historian on this point. In any case, he has had a history of atrial fibrillation and was being treated in [place], [place]. According to the patient, he had been doing well on lisinopril metoprolol and Xarelto and then in 2019 he was admitted to the hospital with [facility]. During that admission he had atrial fibrillation and was started on 80 of sotalol twice daily and Xarelto which worked for a while and then he had a reoccurrence he had a reoccurrence and they increased the sotalol to 120 mg twice daily. He was scheduled for an A. fib ablation in [place] for February but at his last follow-up he was doing well and the decision was made to wait. The patient is an avid golfer. He was golfing earlier this week, played for several days and then Thursday he was not feeling well. He did not really feel that he had atrial fibrillation but just did not feel well. Today he was in [place] playing golf when he just did not feel well again He asked that he be taken back to [place] [facility]. An ambulance was called and while he was being transported to [facility] he arrested. According to the ER physician, he had approximately 5 minutes of CPR and eventually was defibrillated using in AED which identified a shockable rhythm. Rather than take him to [facility], [facility] was called and the patient was transported here. By the time he arrived here he was fully awake and alert. No significant chest pain other than from the cardioversion and CPR. Initially he was hypotensive but was given IV fluids and started on a diltiazem drip as well as Levophed eventually his heart rate improved as well as his blood pressure. He remains in a rate controlled atrial fibrillation. He denies shortness of breath orthopnea. He has had no lower extremity edema leading up to today. An echocardiogram performed in the emergency department shows no wall motion abnormalities of the left ventricle with preserved left ventricular systolic function. First set high-sensitivity troponin is 800. He is now admitted for further care. Allergies Allergy/AdvReac Type Severity Reaction Status Date / Time No Known Allergies Allergy Unverified 02/15/22 15:15 Home Medications Medication Instructions Recorded Confirmed Type ascorbic acid (vitamin C) 500 mg 500 mg PO DAILY 02/15/22 02/15/22 History tablet (Vitamin C) cholecalciferol (vitamin D3) 25 25 mcg PO DAILY 02/15/22 02/15/22 History mcg (1,000 unit) tablet (Vitamin D3) cyanocobalamin (vitamin B-12) 1,000 mcg IM MONTHLY 02/15/22 02/15/22 History 1,000 mcg/mL injection solution finasteride 5 mg tablet 5 mg PO DAILY 02/15/22 02/15/22 History furosemide 40 mg tablet 40 mg PO DAILY 02/15/22 02/15/22 History lisinopril 20 mg tablet 20 mg PO DAILY 02/15/22 02/15/22 History rivaroxaban 20 mg tablet (Xarelto) 20 mg PO DAILY 02/15/22 02/15/22 History sotalol 120 mg tablet 120 mg PO BID 02/15/22 02/15/22 History Patient History Social History Smoking Status: Former smoker Tobacco Type: Cigarettes Second Hand Exposure: No; Hx Alcohol Use: Yes Alcohol type: hard liquor Hx Substance Use: No Preferred Language: Malawian Communication Ability: Effective Wares Sorter Required: No Beliefs That Will Affect Care: None Current Living Situation: Spouse Feels Safe at Home: Yes Assistive Devices: Glasses Review of Systems Review of Systems: Review of Systems: See HPI for pertinent positives. All other 10 point review of systems are negative. Physical Exam Physical Exam: General: no acute distress and stated age Head: normocephalic, no masses, lesions, tenderness or abnormalities Eyes: conjunctiva are pink and non-injected, sclera clear Neck: supple, no adenopathy, no bruits, normal jugular venous pulse, no hepatojugular reflux Chest: normal shape and normal respiratory effort Lungs: clear to auscultation and percussion Cardiac Exam: - irregular rate & rhythm, no murmurs gallops or rubs - normal S1, normal S2 Pulses: 2(+) throughout Abdomen: abdomen soft, non-tender, no abnormal masses and no hepatosplenomegaly Musculoskeletal: no gait disturbance, no joint inflammation, no deforming arthritis Extremities: no edema and no cyanosis Neuro: grossly normal exam Results & Data ([facility]) Vital Signs (Past 12 Hours) Vital Signs Temp Pulse Pulse Resp BP BP Pulse Ox 02/15/22 15:07 105 H 20 94 02/15/22 14:57 97 H 20 80/35 L 94 02/15/22 14:50 112 H 17 94 02/15/22 14:46 105 H 15 87/73 L 95 02/15/22 14:43 21 161/128 H 86 L 02/15/22 14:41 36.5 C 103 H 19 94 02/15/22 14:40 112 H 18 97 02/15/22 14:33 117 H 15 98 Laboratory Results Laboratory Results - last 24 hr 02/15/22 02/15/22 02/15/22 14:37 14:38 14:38 WBC 8.96 RBC 4.58 L Hgb 14.6 POC Hgb Hct 42.2 POC Hct MCV 92.1 MCH 31.9 MCHC 34.6 RDW Std Deviation 46.4 H RDW Coeff of Krystle 13.8 Plt Count 191 MPV 13.0 H Immature Gran % (Auto) 0.2 Neut % (Auto) 75.4 Lymph % (Auto) 14.8 [place] % (Auto) 9.3 Eos % (Auto) 0.1 Baso % (Auto) 0.2 Neut # (Auto) 6.75 H Lymph # (Auto) 1.33 [place] # (Auto) 0.83 H Eos # (Auto) 0.01 Baso # (Auto) 0.02 Immature Gran # (Auto) 0.02 PT Cancelled INR Cancelled APTT Cancelled PTT Ratio Cancelled POC Sodium Sodium POC Potassium Potassium POC Chloride Chloride Carbon Dioxide POC Total CO2 Anion Gap POC Anion Gap POC BUN BUN Creatinine POC Creatinine Est Cr Clr Drug Dosing Est GFR ( Amer) Est GFR (Non-Af Amer) BUN/Creatinine Ratio Glucose POC Glucose (other) Calcium POC Ioniz Calcium Naty Total Bilirubin AST ALT Alkaline Phosphatase Troponin I High Sens 803.4 H* Total Protein Albumin Globulin Albumin/Globulin Ratio Lipase SARS-CoV-2, RNA, NAAT 02/15/22 02/15/22 02/15/22 14:38 14:40 14:40 WBC RBC Hgb POC Hgb 15.6 Hct POC Hct 46 MCV MCH MCHC RDW Std Deviation RDW Coeff of Krystle Plt Count MPV Immature Gran % (Auto) Neut % (Auto) Lymph % (Auto) [place] % (Auto) Eos % (Auto) Baso % (Auto) Neut # (Auto) Lymph # (Auto) [place] # (Auto) Eos # (Auto) Baso # (Auto) Immature Gran # (Auto) PT INR APTT PTT Ratio POC Sodium 132 L Sodium 131 L POC Potassium 3.8 Potassium 3.8 POC Chloride 98 L Chloride 96 L Carbon Dioxide 22 POC Total CO2 22 L Anion Gap 13 H POC Anion Gap 17.0 POC BUN 27 H BUN 28 H Creatinine 1.84 H POC Creatinine 2.0 H Est Cr Clr Drug Dosing 55.0 Est GFR ( Amer) 43.0 Est GFR (Non-Af Amer) 37.1 BUN/Creatinine Ratio 15.2 Glucose 158 H POC Glucose (other) 167 H Calcium 7.6 L POC Ioniz Calcium Naty 0.92 L Total Bilirubin 2.5 H AST 618 H ALT 177 H Alkaline Phosphatase 370 H Troponin I High Sens Total Protein 5.6 L Albumin 2.7 L Globulin 2.9 Albumin/Globulin Ratio 0.9 Lipase 149 H SARS-CoV-2, RNA, NAAT NEGATIVE Medications Administered Current Inpatient Medications Heparin Sodium/Dextrose (Heparin Iv Adult Wt-Based Standard *No* Bolus Protocol) 1 ea IV Q20M [facility]O; Protocol Stop: 03/17/22 15:59 Last Admin: 02/15/22 16:02 Dose: Not Given Documented by: Diltiazem HCl 125 mg/ Dextrose 125 mls @ 0 mls/hr IV .Q0M KEO; Protocol Stop: 03/17/22 14:44 Last Titration: 02/15/22 15:12 Dose: 0 mg/hr, 0 mls/hr Documented by: Norepinephrine Bitartrate (Levophed/D5w) 4 mg in 250 mls @ 24.938 mls/hr IV .Q10H2M [facility]; Protocol Stop: 03/17/22 15:29 Heparin Sodium/Dextrose (Heparin Sodium/Dextrose) 25,000 units in 500 mls @ 0.02 mls/hr IV .Q24H [facility]; Protocol Stop: 03/17/22 16:14 Last Admin: 02/15/22 16:00 Dose: 1,800 units/hr, 36 mls/hr Documented by:
--- NOTE | 2022-02-15 17:37 | Critical Care Consultation ---
Date of Consultation February 15, 2022 Assessment & Plan (1) Cardiac arrest due to underlying cardiac condition: Reason Critically Ill: 66-year-old male with significant cardiac past medical history who experienced a cardiac arrest today with successful return of spontaneous circulation PLAN: Resp: Wean oxygen as tolerated CV: Atrial fibrillation on systemic anticoagulation -reviewed cardiology consult -May require Life[facility] -Heparin at this time, discontinue Xarelto Fluids/Renal: Hyponatremia -diuretic induced vs mild hypervolemic hyponatremia -Echo reviewed Elevated creatinine -Acute kidney injury versus baseline renal disease: Unclear ID: No evidence of infectious etiology at this time GI/Nutrition: Transaminitis -Suspect ischemic etiology, will send hepatitis panel Heme: Type and screen ordered DVT prophylaxis: Heparin infusion Endocrine: ICU hyperglycemia protocol A1c pending Vascular access: Peripheral IVs Code Status: Full code Disposition: ICU (2) Atrial fibrillation with RVR: Supervising Physician Co-Signing Physician Notes I have personally spent 40 minutes of critical care time in the direct management of this patient. This is a life/limb threatening event. This includes time spent evaluating patient, direct bedside care, chart review, placing orders, interpretation of diagnostic studies, discussion with consultants, patient, and/or family members regarding treatment decisions, as well as other required patient management activities. This time is exclusive of all separately billable procedures, and teaching time and separate from and in addition to any other critical care service time. History of Present Illness Reason for Consultation: Status post cardiac arrest with return of spontaneous circulation Requesting Physician: Gold Quinn Attending Physician: Gold Quinn History of Present Illness Patient is a 64-year-old male with a previous past medical history of atrial fibrillation on systemic anticoagulation with Xarelto and CHF who presents after having chest pain while golfing and subsequently having a cardiac arrest. He was shocked 1 time by in the ED and had approximately 5 to 10 minutes of bystander CPR. He was transported by helicopter EMS to [facility]. He is from [facility] and was golfing at an outlying facility. While in the emergency department repeat EKG did not demonstrate significant ST abnormalities. He has been seen by cardiology and an echo has been obtained. He reports a remote history of smoking quit approximately 10 years ago Allergies Allergy/AdvReac Type Severity Reaction Status Date / Time No Known Allergies Allergy Unverified 02/15/22 15:15 Home Medications Medication Instructions Recorded Confirmed Type ascorbic acid (vitamin C) 500 mg 500 mg PO DAILY 02/15/22 02/15/22 History tablet (Vitamin C) cholecalciferol (vitamin D3) 25 25 mcg PO DAILY 02/15/22 02/15/22 History mcg (1,000 unit) tablet (Vitamin D3) cyanocobalamin (vitamin B-12) 1,000 mcg IM MONTHLY 02/15/22 02/15/22 History 1,000 mcg/mL injection solution finasteride 5 mg tablet 5 mg PO DAILY 02/15/22 02/15/22 History furosemide 40 mg tablet 40 mg PO DAILY 02/15/22 02/15/22 History lisinopril 20 mg tablet 20 mg PO DAILY 02/15/22 02/15/22 History rivaroxaban 20 mg tablet (Xarelto) 20 mg PO DAILY 02/15/22 02/15/22 History sotalol 120 mg tablet 120 mg PO BID 02/15/22 02/15/22 History Patient History Social History Smoking Status: Former smoker Tobacco Type: Cigarettes Preferred Language: Croatian Feels Safe at Home: Yes Physical Exam Physical Exam: General: Alert. nontoxic. Skin: Warm, dry, Head: Atraumatic Ears, nose, mouth and throat: airway patent Cardiovascular: Normal peripheral perfusion Respiratory: no respiratory distress Gastrointestinal: Non distended Musculoskeletal: No deformity Results & Data Results & Data ([facility]) Vital Signs (Past 12 Hours) Vital Signs Temp Pulse Pulse Resp BP BP Pulse Ox 02/15/22 17:11 88 22 107/75 02/15/22 17:10 107 H 98 02/15/22 17:05 101 H 20 109/76 99 02/15/22 17:00 96 H 103/79 99 02/15/22 16:55 96 H 99/77 L 97 02/15/22 16:51 117 H 105/77 98 02/15/22 16:50 115 H 95 02/15/22 16:45 104 H 99/71 L 99 02/15/22 16:41 112 H 87/68 L 96 02/15/22 16:40 116 H 19 100 02/15/22 16:35 112 H 20 101/72 95 02/15/22 16:30 119 H 22 92/72 L 95 02/15/22 16:25 99 H 19 92/61 L 97 02/15/22 16:20 96 H 18 96 02/15/22 16:17 106 H 19 89/66 L 97 02/15/22 16:15 102 H 21 97 02/15/22 16:11 102 H 20 88/70 L 96 02/15/22 16:10 98 H 17 95 02/15/22 16:05 114 H 17 102/74 96 02/15/22 16:01 86 19 106/52 L 96 02/15/22 16:00 102 H 22 95 02/15/22 15:55 87 16 87/54 L 94 02/15/22 15:50 110 H 23 98 02/15/22 15:45 107 H 22 96/52 L 98 02/15/22 15:43 99 H 20 89/63 L 97 02/15/22 15:41 102 H 22 68/53 L 98 02/15/22 15:40 96 H 20 99 02/15/22 15:37 110 H 18 93/58 L 96 02/15/22 15:36 116 H 17 96 02/15/22 15:35 117 H 17 97 02/15/22 15:30 100 H 18 95/62 L 98 02/15/22 15:25 91 H 13 88/56 L 95 02/15/22 15:22 104 H 15 86/44 L 98 02/15/22 15:20 95 H 28 H 99 02/15/22 15:16 105 H 27 H 78/53 L 94 02/15/22 15:15 115 H 18 94 02/15/22 15:13 101 H 16 72/47 L 97 02/15/22 15:10 99 H 21 79/57 L 97 02/15/22 15:07 105 H 20 94 02/15/22 15:05 97 H 15 94/80 L 94 02/15/22 15:03 95 H 18 92/68 L 93 02/15/22 15:01 94 H 19 89/70 L 95 02/15/22 15:00 92 H 16 94 02/15/22 14:57 97 H 20 80/35 L 94 02/15/22 14:55 110 H 15 91 02/15/22 14:50 112 H 17 94 02/15/22 14:46 105 H 15 87/73 L 95 02/15/22 14:43 21 161/128 H 86 L 02/15/22 14:41 36.5 C 103 H 19 94 02/15/22 14:40 112 H 18 97 02/15/22 14:33 117 H 15 98 Critical Care Results & Data Vital Signs (Past 12 Hours) Vital Signs Temp Pulse Pulse Resp BP BP Pulse Ox 02/15/22 17:11 88 22 107/75 02/15/22 17:10 107 H 98 02/15/22 17:05 101 H 20 109/76 99 02/15/22 17:00 96 H 103/79 99 02/15/22 16:55 96 H 99/77 L 97 02/15/22 16:51 117 H 105/77 98 02/15/22 16:50 115 H 95 02/15/22 16:45 104 H 99/71 L 99 02/15/22 16:41 112 H 87/68 L 96 02/15/22 16:40 116 H 19 100 02/15/22 16:35 112 H 20 101/72 95 02/15/22 16:30 119 H 22 92/72 L 95 02/15/22 16:25 99 H 19 92/61 L 97 02/15/22 16:20 96 H 18 96 02/15/22 16:17 106 H 19 89/66 L 97 02/15/22 16:15 102 H 21 97 02/15/22 16:11 102 H 20 88/70 L 96 02/15/22 16:10 98 H 17 95 02/15/22 16:05 114 H 17 102/74 96 02/15/22 16:01 86 19 106/52 L 96 02/15/22 16:00 102 H 22 95 02/15/22 15:55 87 16 87/54 L 94 02/15/22 15:50 110 H 23 98 02/15/22 15:45 107 H 22 96/52 L 98 02/15/22 15:43 99 H 20 89/63 L 97 02/15/22 15:41 102 H 22 68/53 L 98 02/15/22 15:40 96 H 20 99 02/15/22 15:37 110 H 18 93/58 L 96 02/15/22 15:36 116 H 17 96 02/15/22 15:35 117 H 17 97 02/15/22 15:30 100 H 18 95/62 L 98 02/15/22 15:25 91 H 13 88/56 L 95 02/15/22 15:22 104 H 15 86/44 L 98 02/15/22 15:20 95 H 28 H 99 02/15/22 15:16 105 H 27 H 78/53 L 94 02/15/22 15:15 115 H 18 94 02/15/22 15:13 101 H 16 72/47 L 97 02/15/22 15:10 99 H 21 79/57 L 97 02/15/22 15:07 105 H 20 94 02/15/22 15:05 97 H 15 94/80 L 94 02/15/22 15:03 95 H 18 92/68 L 93 02/15/22 15:01 94 H 19 89/70 L 95 02/15/22 15:00 92 H 16 94 02/15/22 14:57 97 H 20 80/35 L 94 02/15/22 14:55 110 H 15 91 02/15/22 14:50 112 H 17 94 02/15/22 14:46 105 H 15 87/73 L 95 02/15/22 14:43 21 161/128 H 86 L 02/15/22 14:41 36.5 C 103 H 19 94 02/15/22 14:40 112 H 18 97 02/15/22 14:33 117 H 15 98 Lab & Micro Results (Past 24 Hours) RBC 4.58 M/uL (4.7-6.1) L 02/15/22 WBC 8.96 K/uL (4.8-10.8) 02/15/22 Hgb 14.6 g/dL (14.0-18.0) 02/15/22 Hct 42.2 % (42-52) 02/15/22 MCV 92.1 fL (80-100) 02/15/22 MCH 31.9 pg (25-34) 02/15/22 MCHC 34.6 g/dL (32-36) 02/15/22 RDW Standard Deviation 46.4 fL (36.4-46.3) H 02/15/22 RDW Coefficient of Variation 13.8 % (11.5-14.5) 02/15/22 Plt Count 191 K/uL (130-400) 02/15/22 MPV 13.0 fL (7.4-10.4) H 02/15/22 Neutrophils (%) (Auto) 75.4 % 02/15/22 Lymphocytes (%) (Auto) 14.8 % 02/15/22 Monocytes # (Auto) 0.83 K/uL (0.11-0.59) H 02/15/22 Eosinophils # (Auto) 0.01 K/uL (0-0.5) 02/15/22 Immature Granulocyte % (Auto) 0.2 % 02/15/22 Neutrophils # (Auto) 6.75 K/uL (1.4-6.5) H 02/15/22 Lymphocytes # (Auto) 1.33 K/uL (1.2-3.4) 02/15/22 Monocytes # (Auto) 0.83 K/uL (0.11-0.59) H 02/15/22 Eosinophils # (Auto) 0.01 K/uL (0-0.5) 02/15/22 Basophils # (Auto) 0.02 K/uL (0-0.2) 02/15/22 Immature Granulocyte # (Auto) 0.02 K/uL (0.00-0.02) 02/15/22 Na 131 mmol/L (136-145) L 02/15/22 K 3.8 mmol/L (3.5-5.1) 02/15/22 Cl 96 mmol/L (98-107) L 02/15/22 CO2 22 mmol/L (21-32) 02/15/22 Anion Gap 13 (3-11) H 02/15/22 BUN 28 mg/dl (6-23) H 02/15/22 Creatinine 1.84 mg/dl (0.6-1.4) H 02/15/22 Estimated GFR ( Amer) 43.0 ml/min 02/15/22 Estimated GFR (Non-Af Amer) 37.1 ml/min 02/15/22 BUN/Creatinine Ratio 15.2 (10-20) 02/15/22 Glu 158 mg/dl (70-99(Fasting)) H 02/15/22 Ca 7.6 mg/dl (8.5-10.1) L 02/15/22 Total Bilirubin 2.5 mg/dl (0.2-1.0) H 02/15/22 AST 618 U/L (13-39) H 02/15/22 ALT 177 U/L (7-52) H 02/15/22 Alkaline Phosphatase 370 U/L (34-104) H 02/15/22 TP 5.6 gm/dl (6.0-8.3) L 02/15/22 Albumin 2.7 gm/dl (3.4-5.0) L 02/15/22 Globulin 2.9 gm/dl (2.5-4.0) 02/15/22 Albumin/Globulin Ratio 0.9 (0.9-2) 02/15/22 Calcium Level 7.6 mg/dl (8.5-10.1) L 02/15/22 14:38 02/15/22 Prothromb Time International Ratio Pending 02/15/22 17:05 02/15/22 Diagnostic Findings (Past 24 Hours) Chest X-Ray 02/15/22 14:28 XR chest 1V portable CLINICAL HISTORY: Atypical chest pain. COMPARISON STUDY: No previous studies for comparison. FINDINGS: Lung volumes are normal. No pneumothorax or pleural effusion is noted. There is no consolidation. Moderate enlargement of the cardiac silhouette is noted. There is possible pulmonary vascular congestion. IMPRESSION: Cardiomegaly. Pulmonary vascular congestion without overt pulmonary edema. ACT 112: Negative or not required by law. Electronically signed by: Ike Avalos M.D. 02/15/2022 3:19 PM I & O Totals 24 Hours 02/14/22 02/15/22 02/16/22 06:59 06:59 06:59 Intake Total 1001.583 / 1001.583 Balance 1001.583 / 1001.583 Cumulative 02/15/22 14:06 thru 02/15/22 15:34 Intake Total 1001.583 Balance 1001.583 RT Ventilator Mngmt (Last Documented) Ventilator Ordered Settings Respiratory Rate 22 02/15/22 17:11 Ventilator - PT Measurements Respiratory Rate 22 Coding Level of Care Code Critical Care 1st 30-74 mins Diagnoses Cardiac arrest due to underlying cardiac condition I46.2 Atrial fibrillation with RVR I48.91
--- NOTE | 2022-02-15 17:41 | History and Physical Report ---
DATE OF ADMISSION: 02/15/2022. CHIEF COMPLAINT: Status post cardiac arrest. HISTORY OF PRESENT ILLNESS: A 66-year-old male with past medical history significant for atrial fibrillation, history of hypertension, BPH, possible CHF comes with cardiac arrest. The patient is currently alert and awake. The patient says he was playing golf tournament at [employer] in [facility] by [place] and began to have getting chest pain like 5/10 right-sided chest pain that radiated to the right arm and at that point, he had a cardiac arrest. At the time of cardiac arrest he received 5-6 minutes of CPR and one shock by AED and return of pulses and the patient awakened and he was life flighted here. Initially, he was hypotensive, given fluid boluses and started on iv heparin. Initially there was concern for inferior ST-elevation WA, heart alert was called, Interventional Cardiology on-call saw the patient and thought no acute ST elevation WA and he was advised to treat rapid AFib. Initially Cardizem drip was recommended but then blood pressures dropped and then Cardizem was stopped.order caller [facility] saw the patient, echo was ordered- seems ok. Patient is negative for COVID and plan is to monitor in the ICU. To Follow the serial cardiac enzymes. The patient currently alert and orienetd and has minimal chest discomfort. Denies any headache, no dizziness, no blurred visions, no earache, no runny nose, no sore throat. He had on and off epistaxis last episode 1 week ago. When he came into the ER, he was profusely sweating. Denies any recent fever or chills. He says he is drinking adequate amount of water, no shortness of breath, no nausea or vomiting. No abdominal pain, no diarrhea or constipation. Has some swelling in the legs. He did not have a sleep study, but he thinks he might have sleep apnea. He was diagnosed with CHF and AFib in 2012 and he was placed on lisinopril, Lasix and metoprolol. He did okay until one year ago when his AFib started acting up and there was plan for ablation, but he was started on sotalol in place of on metoprolol and he was doing fine and ablation was not planned. PAST MEDICAL HISTORY: As mentioned above. PAST SURGICAL HISTORY: Cardiac catheterization long-term back when he was first diagnosed AFib, knee arthroscopy, hemorrhoid surgery. MEDICATIONS: The patient is on vitamin C 500 mg p.o. daily, vitamin D 25 mcg p.o. daily, vitamin B12 1000 mcg IM monthly, finasteride 5 mg p.o. daily, Lasix 40 mg p.o. daily, lisinopril 20 mg p.o. daily, Xarelto 20 mg p.o. daily, sotalol 120 mg p.o. b.i.d. FAMILY HISTORY: Currently not available. SOCIAL HISTORY: Quit smoking 20 years ago. Drinks 2-4 shots of whiskey daily, lives with his . REVIEW OF SYSTEMS: As per HPI. Rest of review of systems is negative. PHYSICAL EXAMINATION: GENERAL: The patient is morbidly obese, patient is not in acute distress. VITAL SIGNS: Temperature 36.5, pulse 96, respiratory rate 18, blood pressure 89/66, oxygen 96% on room air. HEENT: Pupils equal, round and reactive to light. Oral mucosa moist. LUNGS: No JVD, no neck masses. CARDIOVASCULAR: S1 and S2 heard. Regular rate and rhythm. No murmur, no gallop. RESPIRATORY SYSTEM: Normal AP diameter. No accessory muscle use. No wheezing, no crackles. ABDOMEN: Soft. Bowel sounds are present, nontender, no distention. CENTRAL NERVOUS SYSTEM: Cranial nerves II-XII grossly intact, nonfocal. EXTREMITIES: Lower extremity pedal edema present, no erythema seen. LABORATORY: WBC 8.9, hemoglobin 14.6, hematocrit 42.2, platelets 191. Sodium 131, potassium 3.8, chloride 96, CO2 22, BUN 28, creatinine 1.8, serum glucose 158, calcium 7.6, total bilirubin 2.5, AST of 618, ALT 177, alkaline phosphatase 70. Troponin I high sensitivity 803. Lipase 149. SARS-CoV-2 RNA negative. IMAGING: Chest x-ray: Cardiomegaly, pulmonary vascular congestion without overt pulmonary edema. EKG: Initial EKG when he came in showing atrial fibrillation with rapid ventricular response at a rate of 104, history of depression in the inferior and lateral leads. ASSESSMENT AND PLAN: This is a 66-year-old male who presents with cardiac arrest. 1. Cardiac arrest, etiology unclear, probably non-ST elevated myocardial infraction. EKG showed ST depression in inferior lateral leads. Troponin is 803. Evaluated by Interventional Cardiology and also General Cardiology. Plan will be IV heparin. Repeat cardiac enzymes and echo was done in the ER, seems to be okay. We will follow the final results. Closely monitor in the ICU.Will keep him npo if any plan for cath later. 2. Hypotension. Currently hypotensive . Getting fluids. We will closely monitor in the ICU. 3. Elevated LFTs with total bilirubin 2.5, AST 618, ALT 177, alkaline phosphatase 70 possibly from cardiac arrest. We will follow the repeat laboratories if not improving will get liver ultrasound. 4. Hyponatremia. Sodium 131. Getting fluids. We will follow the labs. 5. Acute kidney injury, creatinine 1.84. As per he has no kidney disease. getting fluids. Follow the repeat labs in the a.m. 6. Hypertension, currently hypotensive. Hold lisinopril and sotalol. We will monitor blood pressure. 7. Atrial fibrillation. Currently, patient is hypotensive so holding sotalol, getting IV heparin. Holding Xarelto. Close monitor. 8. Benign prostatic hyperplasia. On finasteride. 9. Deep venous thrombosis prophylaxis: On IV heparin. DISPOSITION: Closely monitor in the ICU. Level 1 full code. Job ID: [id number] MTDD
[2022-02-15 17:44] LABS: INR 2.2 (0.9-1.1); Partial Thromboplastin Ratio > 5.1; Prothrombin Time 22.4 Seconds (9.0-12.0)
[2022-02-15 17:53] LABS: Partial Thromboplastin Time > 139.0 Seconds (21.0-31.0)
[2022-02-15] MEDS ORDERED: ICU PROTOCOL FOR HYPERGLYCEMIA PRN (18:14)
[2022-02-15] MEDS: SODIUM CHLORIDE 0.9% 1000ML 1,000 ML IV SCH (20:13)
[2022-02-15 20:21] LABS: Partial Thromboplastin Ratio > 5.1
[2022-02-15 20:27] LABS: Partial Thromboplastin Time > 139.0 Seconds (21.0-31.0)
[2022-02-15] MEDS ORDERED: ACETAMINOPHEN 325 MG TAB PO PRN (21:55)
[2022-02-15 21:58] LABS: Partial Thromboplastin Ratio 2.9
[2022-02-15 22:02] LABS: Partial Thromboplastin Time 79.1 Seconds (21.0-31.0)
[2022-02-16 04:06] LABS: Hemoglobin 13.4 g/dL (14.0-18.0); Mean Corpuscular Hemoglobin 31.5 pg (25-34); Mean Corpuscular Hgb Conc 34.4 g/dL (32-36); Mean Corpuscular Volume 91.8 fL (80-100); Mean Platelet Volume 11.9 fL (7.4-10.4); Platelet Count 147 K/uL (130-400); RDW Coefficient of Variation 14.2 % (11.5-14.5); RDW Standard Deviation 47.9 fL (36.4-46.3); Red Blood Count 4.25 M/uL (4.7-6.1)
[2022-02-16 04:26] LABS: Albumin Level 2.5 gm/dl (3.4-5.0); BUN Creatinine Ratio 15.8 (10-20); Bilirubin Direct 1.1 mg/dl (0-0.2); Bilirubin,Total 2.2 mg/dl (0.2-1.0); Calcium 7.3 mg/dl (8.5-10.1); Creatinine Clr Calc Pharmacy 54.1 ml/min; Est GFR (Non-African American) 37.1 ml/min; Magnesium 1.8 mg/dl (1.7-2.4); Phosphorus 4.3 mg/dl (2.5-4.9); Potassium 3.6 mmol/L (3.5-5.1); Total Protein 5.1 gm/dl (6.0-8.3)
[2022-02-16 04:40] LABS: Basophils # (auto) 0.01 K/uL (0-0.2); Basophils % (auto) 0.1 %; Echinocytes 3+; Eosinophils # (auto) 0.01 K/uL (0-0.5); Eosinophils % (auto) 0.1 %; Immature Granulocytes # (auto) 0.01 K/uL (0.00-0.02); Immature Granulocytes % (auto) 0.1 %; Lymphocytes # (auto) 1.58 K/uL (1.2-3.4); Lymphocytes % (auto) 22.9 %; Monocytes # (auto) 0.69 K/uL (0.11-0.59); Neutrophils % (auto) 66.8 %
[2022-02-16] MEDS: SODIUM CHLORIDE 0.9% 1000ML 1,000 ML IV SCH ×3 (04:52→20:34)
[2022-02-16 06:13] LABS: Partial Thromboplastin Ratio > 5.1
[2022-02-16 06:14] LABS: Partial Thromboplastin Time > 139.0 Seconds (21.0-31.0)
--- NOTE | 2022-02-16 08:52 | Cardiology Progress Note ---
Date of Service February 16, 2022 Assessment & Plan (1) Cardiac arrest due to underlying cardiac condition: (2) Atrial fibrillation with RVR: (3) Elevated troponin: Plan: As mentioned above, the patient is having chest wall pain from previous CPR which is increased with movement and deep inspiration. He did have an elevation in his cardiac troponins. Echocardiogram on admission showed no wall motion abnormalities with normal LV function however, given the circumstances of his cardiac arrest I believe we should eliminate ischemic heart disease and perform cardiac catheterization. That study will be performed tomorrow. I explained the risk, benefit and intent of the procedure to the patient and he is willing to proceed. I have also consulted electrophysiology. He was followed by an atrial fibrillation clinic in [place] and I would like to discuss options regarding his atrial fibrillation including whether or not sotalol should be continued. Finally, he is post cardiac arrest and consideration should be given to next steps including a secondary prevention ICD if indicated. Admission and Anticipated Discharge Date Admission Date: February 15, 2022 Subjective The patient had an uneventful night. He does have some chest pain but it is most likely chest wall from his the CPR that was performed. He has been given some Tylenol with improvement. Review of Systems Review of Systems: Review of Systems: See HPI for pertinent positives. All other 10 point review of systems are negative. Physical Exam Physical Exam: General: no acute distress and stated age Head: normocephalic, no masses, lesions, tenderness or abnormalities Eyes: conjunctiva are pink and non-injected, sclera clear Neck: supple, no adenopathy, no bruits, normal jugular venous pulse, no hepatojugular reflux Chest: normal shape and normal respiratory effort Lungs: clear to auscultation and percussion Cardiac Exam: - irregular rate & rhythm, no murmurs gallops or rubs - normal S1, normal S2 Pulses: 2(+) throughout Abdomen: abdomen soft, non-tender, no abnormal masses and no hepatosplenomegaly Musculoskeletal: no gait disturbance, no joint inflammation, no deforming arthritis Extremities: no edema and no cyanosis Neuro: grossly normal exam Results & Data ([facility]) Vital Signs (Past 12 Hours) Vital Signs Temp Pulse Resp BP Pulse Ox 02/16/22 04:23 101 H 19 132/81 99 02/16/22 04:00 105 H 19 97 02/16/22 03:00 89 14 111/74 97 02/16/22 02:00 98 H 19 125/86 98 02/16/22 01:00 117 H 17 116/79 98 02/16/22 00:01 94 H 21 111/82 98 02/16/22 00:00 88 15 97 02/15/22 23:15 90 02/15/22 23:00 106 H 16 114/84 97 02/15/22 22:01 36.7 C 102 H 19 106/81 97 02/15/22 22:00 106 H 19 97 02/15/22 21:00 97 H 17 138/114 H 98 Laboratory Results Laboratory Results - last 24 hr 02/15/22 02/15/22 02/15/22 14:35 14:37 14:38 WBC 8.96 RBC 4.58 L Hgb 14.6 POC Hgb Hct 42.2 POC Hct MCV 92.1 MCH 31.9 MCHC 34.6 RDW Std Deviation 46.4 H RDW Coeff of Krystle 13.8 Plt Count 191 MPV 13.0 H Immature Gran % (Auto) 0.2 Neut % (Auto) 75.4 Lymph % (Auto) 14.8 Traverse % (Auto) 9.3 Eos % (Auto) 0.1 Baso % (Auto) 0.2 Neut # (Auto) 6.75 H Lymph # (Auto) 1.33 Traverse # (Auto) 0.83 H Eos # (Auto) 0.01 Baso # (Auto) 0.02 Immature Gran # (Auto) 0.02 Echinocytes PT INR APTT PTT Ratio POC Sodium Sodium POC Potassium Potassium POC Chloride Chloride Carbon Dioxide POC Total CO2 Anion Gap POC Anion Gap POC BUN BUN Creatinine POC Creatinine Est Cr Clr Drug Dosing Est GFR ( Amer) Est GFR (Non-Af Amer) BUN/Creatinine Ratio Glucose POC Glucose POC Glucose (other) Estimat Average Glucose Hemoglobin A1c Calcium POC Ioniz Calcium Naty Phosphorus Magnesium Total Bilirubin Direct Bilirubin AST ALT Alkaline Phosphatase Troponin I High Sens 803.4 H* Total Protein Albumin Globulin Albumin/Globulin Ratio Lipase Nasal Screen MRSA (PCR) Hepatitis A IgM Ab Pending Hep Bs Antigen Pending Hep Bs Ag Confirmation Pending Hep B Core IgM Ab Pending Hepatitis C Ab (EIA) Pending Hep C Ab Signal/Cutoff Pending SARS-CoV-2, RNA, NAAT 02/15/22 02/15/22 02/15/22 14:38 14:38 14:38 WBC RBC Hgb POC Hgb Hct POC Hct MCV MCH MCHC RDW Std Deviation RDW Coeff of Krystle Plt Count MPV Immature Gran % (Auto) Neut % (Auto) Lymph % (Auto) Traverse % (Auto) Eos % (Auto) Baso % (Auto) Neut # (Auto) Lymph # (Auto) Traverse # (Auto) Eos # (Auto) Baso # (Auto) Immature Gran # (Auto) Echinocytes PT Cancelled INR Cancelled APTT Cancelled PTT Ratio Cancelled POC Sodium Sodium 131 L POC Potassium Potassium 3.8 POC Chloride Chloride 96 L Carbon Dioxide 22 POC Total CO2 Anion Gap 13 H POC Anion Gap POC BUN BUN 28 H Creatinine 1.84 H POC Creatinine Est Cr Clr Drug Dosing 55.0 Est GFR ( Amer) 43.0 Est GFR (Non-Af Amer) 37.1 BUN/Creatinine Ratio 15.2 Glucose 158 H POC Glucose POC Glucose (other) Estimat Average Glucose Pending Hemoglobin A1c Pending Calcium 7.6 L POC Ioniz Calcium Naty Phosphorus Magnesium Total Bilirubin 2.5 H Direct Bilirubin AST 618 H ALT 177 H Alkaline Phosphatase 370 H Troponin I High Sens Total Protein 5.6 L Albumin 2.7 L Globulin 2.9 Albumin/Globulin Ratio 0.9 Lipase 149 H Nasal Screen MRSA (PCR) Hepatitis A IgM Ab Hep Bs Antigen Hep Bs Ag Confirmation Hep B Core IgM Ab Hepatitis C Ab (EIA) Hep C Ab Signal/Cutoff SARS-CoV-2, RNA, NAAT 02/15/22 02/15/22 02/15/22 14:40 14:40 16:11 WBC RBC Hgb POC Hgb 15.6 Hct POC Hct 46 MCV MCH MCHC RDW Std Deviation RDW Coeff of Krystle Plt Count MPV Immature Gran % (Auto) Neut % (Auto) Lymph % (Auto) Traverse % (Auto) Eos % (Auto) Baso % (Auto) Neut # (Auto) Lymph # (Auto) Traverse # (Auto) Eos # (Auto) Baso # (Auto) Immature Gran # (Auto) Echinocytes PT Cancelled INR Cancelled APTT Cancelled PTT Ratio Cancelled POC Sodium 132 L Sodium POC Potassium 3.8 Potassium POC Chloride 98 L Chloride Carbon Dioxide POC Total CO2 22 L Anion Gap POC Anion Gap 17.0 POC BUN 27 H BUN Creatinine POC Creatinine 2.0 H Est Cr Clr Drug Dosing Est GFR ( Amer) Est GFR (Non-Af Amer) BUN/Creatinine Ratio Glucose POC Glucose POC Glucose (other) 167 H Estimat Average Glucose Hemoglobin A1c Calcium POC Ioniz Calcium Naty 0.92 L Phosphorus Magnesium Total Bilirubin Direct Bilirubin AST ALT Alkaline Phosphatase Troponin I High Sens Total Protein Albumin Globulin Albumin/Globulin Ratio Lipase Nasal Screen MRSA (PCR) Hepatitis A IgM Ab Hep Bs Antigen Hep Bs Ag Confirmation Hep B Core IgM Ab Hepatitis C Ab (EIA) Hep C Ab Signal/Cutoff SARS-CoV-2, RNA, NAAT NEGATIVE 02/15/22 02/15/22 02/15/22 17:05 18:00 18:38 WBC RBC Hgb POC Hgb Hct POC Hct MCV MCH MCHC RDW Std Deviation RDW Coeff of Krystle Plt Count MPV Immature Gran % (Auto) Neut % (Auto) Lymph % (Auto) Traverse % (Auto) Eos % (Auto) Baso % (Auto) Neut # (Auto) Lymph # (Auto) Traverse # (Auto) Eos # (Auto) Baso # (Auto) Immature Gran # (Auto) Echinocytes PT 22.4 H INR 2.2 H APTT > 139.0 H* PTT Ratio > 5.1 POC Sodium Sodium POC Potassium Potassium POC Chloride Chloride Carbon Dioxide POC Total CO2 Anion Gap POC Anion Gap POC BUN BUN Creatinine POC Creatinine Est Cr Clr Drug Dosing Est GFR ( Amer) Est GFR (Non-Af Amer) BUN/Creatinine Ratio Glucose POC Glucose 140 H POC Glucose (other) Estimat Average Glucose Hemoglobin A1c Calcium POC Ioniz Calcium Naty Phosphorus Magnesium Total Bilirubin Direct Bilirubin AST ALT Alkaline Phosphatase Troponin I High Sens Total Protein Albumin Globulin Albumin/Globulin Ratio Lipase Nasal Screen MRSA (PCR) Negative Hepatitis A IgM Ab Hep Bs Antigen Hep Bs Ag Confirmation Hep B Core IgM Ab Hepatitis C Ab (EIA) Hep C Ab Signal/Cutoff SARS-CoV-2, RNA, NAAT 02/15/22 02/15/22 02/15/22 18:53 19:46 21:12 WBC RBC Hgb POC Hgb Hct POC Hct MCV MCH MCHC RDW Std Deviation RDW Coeff of Krystle Plt Count MPV Immature Gran % (Auto) Neut % (Auto) Lymph % (Auto) Traverse % (Auto) Eos % (Auto) Baso % (Auto) Neut # (Auto) Lymph # (Auto) Traverse # (Auto) Eos # (Auto) Baso # (Auto) Immature Gran # (Auto) Echinocytes PT INR APTT > 139.0 H* 79.1 H* PTT Ratio > 5.1 2.9 POC Sodium Sodium POC Potassium Potassium POC Chloride Chloride Carbon Dioxide POC Total CO2 Anion Gap POC Anion Gap POC BUN BUN Creatinine POC Creatinine Est Cr Clr Drug Dosing Est GFR ( Amer) Est GFR (Non-Af Amer) BUN/Creatinine Ratio Glucose POC Glucose POC Glucose (other) Estimat Average Glucose Hemoglobin A1c Calcium POC Ioniz Calcium Naty Phosphorus Magnesium Total Bilirubin Direct Bilirubin AST ALT Alkaline Phosphatase Troponin I High Sens 4514.2 H* D Total Protein Albumin Globulin Albumin/Globulin Ratio Lipase Nasal Screen MRSA (PCR) Hepatitis A IgM Ab Hep Bs Antigen Hep Bs Ag Confirmation Hep B Core IgM Ab Hepatitis C Ab (EIA) Hep C Ab Signal/Cutoff SARS-CoV-2, RNA, NAAT 02/16/22 02/16/22 02/16/22 00:43 01:13 03:55 WBC RBC Hgb POC Hgb Hct POC Hct MCV MCH MCHC RDW Std Deviation RDW Coeff of Krystle Plt Count MPV Immature Gran % (Auto) Neut % (Auto) Lymph % (Auto) Traverse % (Auto) Eos % (Auto) Baso % (Auto) Neut # (Auto) Lymph # (Auto) Traverse # (Auto) Eos # (Auto) Baso # (Auto) Immature Gran # (Auto) Echinocytes PT INR APTT PTT Ratio POC Sodium Sodium POC Potassium Potassium POC Chloride Chloride Carbon Dioxide POC Total CO2 Anion Gap POC Anion Gap POC BUN BUN Creatinine POC Creatinine Est Cr Clr Drug Dosing Est GFR ( Amer) Est GFR (Non-Af Amer) BUN/Creatinine Ratio Glucose POC Glucose 98 POC Glucose (other) Estimat Average Glucose Hemoglobin A1c Calcium POC Ioniz Calcium Naty Phosphorus Magnesium Total Bilirubin Direct Bilirubin AST ALT Alkaline Phosphatase Troponin I High Sens 77347.5 H* D Total Protein Albumin Globulin Albumin/Globulin Ratio Lipase Nasal Screen MRSA (PCR) Hepatitis A IgM Ab Hep Bs Antigen Hep Bs Ag Confirmation Hep B Core IgM Ab Hepatitis C Ab (EIA) Pending Hep C Ab Signal/Cutoff Pending SARS-CoV-2, RNA, NAAT 02/16/22 02/16/22 02/16/22 03:55 03:55 03:55 WBC 6.90 RBC 4.25 L Hgb 13.4 L POC Hgb Hct 39.0 L POC Hct MCV 91.8 MCH 31.5 MCHC 34.4 RDW Std Deviation 47.9 H RDW Coeff of Krystle 14.2 Plt Count 147 MPV 11.9 H Immature Gran % (Auto) 0.1 Neut % (Auto) 66.8 Lymph % (Auto) 22.9 Traverse % (Auto) 10.0 Eos % (Auto) 0.1 Baso % (Auto) 0.1 Neut # (Auto) 4.60 Lymph # (Auto) 1.58 Traverse # (Auto) 0.69 H Eos # (Auto) 0.01 Baso # (Auto) 0.01 Immature Gran # (Auto) 0.01 Echinocytes 3+ PT INR APTT Cancelled PTT Ratio Cancelled POC Sodium Sodium 132 L POC Potassium Potassium 3.6 POC Chloride Chloride 99 Carbon Dioxide 27 POC Total CO2 Anion Gap 6 POC Anion Gap POC BUN BUN 29 H Creatinine 1.84 H POC Creatinine Est Cr Clr Drug Dosing 54.1 Est GFR ( Amer) 43.0 Est GFR (Non-Af Amer) 37.1 BUN/Creatinine Ratio 15.8 Glucose 113 H POC Glucose POC Glucose (other) Estimat Average Glucose Hemoglobin A1c Calcium 7.3 L POC Ioniz Calcium Naty Phosphorus 4.3 Magnesium 1.8 Total Bilirubin 2.2 H Direct Bilirubin 1.1 H AST 469 H ALT 145 H Alkaline Phosphatase 331 H Troponin I High Sens Total Protein 5.1 L Albumin 2.5 L Globulin Albumin/Globulin Ratio Lipase Nasal Screen MRSA (PCR) Hepatitis A IgM Ab Hep Bs Antigen Hep Bs Ag Confirmation Hep B Core IgM Ab Hepatitis C Ab (EIA) Hep C Ab Signal/Cutoff SARS-CoV-2, RNA, NAAT 02/16/22 02/16/22 05:15 06:34 WBC RBC Hgb POC Hgb Hct POC Hct MCV MCH MCHC RDW Std Deviation RDW Coeff of Krystle Plt Count MPV Immature Gran % (Auto) Neut % (Auto) Lymph % (Auto) Traverse % (Auto) Eos % (Auto) Baso % (Auto) Neut # (Auto) Lymph # (Auto) Traverse # (Auto) Eos # (Auto) Baso # (Auto) Immature Gran # (Auto) Echinocytes PT INR APTT > 139.0 H* PTT Ratio > 5.1 POC Sodium Sodium POC Potassium Potassium POC Chloride Chloride Carbon Dioxide POC Total CO2 Anion Gap POC Anion Gap POC BUN BUN Creatinine POC Creatinine Est Cr Clr Drug Dosing Est GFR ( Amer) Est GFR (Non-Af Amer) BUN/Creatinine Ratio Glucose POC Glucose POC Glucose (other) Estimat Average Glucose Hemoglobin A1c Calcium POC Ioniz Calcium Naty Phosphorus Magnesium Total Bilirubin Direct Bilirubin AST ALT Alkaline Phosphatase Troponin I High Sens 8682.9 H* Total Protein Albumin Globulin Albumin/Globulin Ratio Lipase Nasal Screen MRSA (PCR) Hepatitis A IgM Ab Hep Bs Antigen Hep Bs Ag Confirmation Hep B Core IgM Ab Hepatitis C Ab (EIA) Hep C Ab Signal/Cutoff SARS-CoV-2, RNA, NAAT Medications Administered Current Inpatient Medications Acetaminophen (Acetaminophen 325 Mg Tab) 650 mg PO Q4H PRN PRN Reason: Pain Stop: 03/17/22 21:54 Last Admin: 02/15/22 22:12 Dose: 650 mg Documented by: Ascorbic Acid (Ascorbic Acid 500 Mg Tab) 500 mg PO DAILY KEO Stop: 03/18/22 08:59 Finasteride (Finasteride 5 Mg Tab) 5 mg PO DAILY KEO Stop: 03/18/22 08:59 Heparin Sodium/Dextrose (Heparin Sodium/Dextrose) 25,000 units in 500 mls @ 0 mls/hr IV .Q0M KEO; Protocol Stop: 03/17/22 16:14 Last Titration: 02/16/22 07:09 Dose: 0 units/hr, 0 mls/hr Documented by: Sodium Chloride (Nss 1000ml) 1,000 mls @ 125 mls/hr IV .Q8H KEO Stop: 03/17/22 19:09 Last Admin: 02/16/22 04:52 Dose: 125 mls/hr Documented by: Metoprolol Tartrate (Metoprolol Tartrate 25 Mg Tab) 25 mg PO BID KEO Stop: 03/18/22 08:59 Miscellaneous (Icu Protocol For Hyperglycemia) 1 ea N/A PRN PRN; Protocol PRN Reason: Hyperglycemia Protocol Stop: 02/17/22 18:13 Vitamin D (Cholecalciferol 1,000 Units 25 Mcg Tab) 1,000 units PO DAILY KEO Stop: 03/18/22 08:59
[2022-02-16] MEDS: ASCORBIC ACID 500 MG TAB PO SCH (09:04)
[2022-02-16] MEDS: CHOLECALCIFEROL 1,000 UNITS 25 MCG TAB PO SCH (09:04)
[2022-02-16] MEDS: FINASTERIDE 5 MG TAB PO SCH (09:04)
[2022-02-16] MEDS: METOPROLOL TARTRATE 25 MG TAB PO SCH ×2 (09:06→20:35)
[2022-02-16 09:43] LABS: Partial Thromboplastin Ratio > 5.1
[2022-02-16 09:44] LABS: Partial Thromboplastin Time > 139.0 Seconds (21.0-31.0)
[2022-02-16 11:18] LABS: Partial Thromboplastin Ratio 2.1
[2022-02-16 11:27] LABS: Partial Thromboplastin Time 58.6 Seconds (21.0-31.0)
--- NOTE | 2022-02-16 12:20 | Critical Care Progress Note ---
Date of Service February 16, 2022 Assessment & Plan (1) Cardiac arrest due to underlying cardiac condition: Plan: Reason Critically Ill: 66-year-old male with significant cardiac past medical history who experienced a cardiac arrest today with successful return of spontan eous circulation PLAN: CV: Atrial fibrillation on systemic anticoagulation Cardiac arrest with successful return of spontaneous circulation -reviewed cardiology consult -Optimize electrolytes -Heparin at this time, discontinue Xarelto -Cardiac catheterization planned for tomorrow Fluids/Renal: Hyponatremia -diuretic induced vs mild hypervolemic hyponatremia -Echo reviewed Elevated creatinine: Unchanged -Acute kidney injury versus baseline renal disease: Unclear ID: No evidence of infectious etiology at this time GI/Nutrition: Transaminitis: Improving -Suspect ischemic etiology, hepatitis panel pending Heme: Type and screen ordered DVT prophylaxis: Heparin infusion Endocrine: ICU hyperglycemia protocol A1c pending Vascular access: Peripheral IVs Code Status: Full code Disposition: ICU (2) Atrial fibrillation with RVR: Admission and Anticipated Discharge Date Admission Date: February 15, 2022 Subjective No chest pain, does not feel palpitations of Afib. feeling well otherwise Physical Exam Physical Exam: General: Alert. nontoxic. Skin: Warm, dry, Head: Atraumatic Ears, nose, mouth and throat: airway patent Cardiovascular: Normal peripheral perfusion Respiratory: no respiratory distress Gastrointestinal: Non distended Musculoskeletal: No deformity Results & Data Results & Data ([facility]) Vital Signs (Past 12 Hours) Vital Signs Pulse Resp BP Pulse Ox 02/16/22 04:23 101 H 19 132/81 99 02/16/22 04:00 105 H 19 97 02/16/22 03:00 89 14 111/74 97 02/16/22 02:00 98 H 19 125/86 98 02/16/22 01:00 117 H 17 116/79 98 Critical Care Results & Data Vital Signs (Past 12 Hours) Vital Signs Pulse Resp BP Pulse Ox 02/16/22 04:23 101 H 19 132/81 99 02/16/22 04:00 105 H 19 97 02/16/22 03:00 89 14 111/74 97 02/16/22 02:00 98 H 19 125/86 98 02/16/22 01:00 117 H 17 116/79 98 Lab & Micro Results (Past 24 Hours) RBC 4.25 M/uL (4.7-6.1) L 02/16/22 WBC 6.90 K/uL (4.8-10.8) 02/16/22 Hgb 13.4 g/dL (14.0-18.0) L 02/16/22 Hct 39.0 % (42-52) L 02/16/22 MCV 91.8 fL (80-100) 02/16/22 MCH 31.5 pg (25-34) 02/16/22 MCHC 34.4 g/dL (32-36) 02/16/22 RDW Standard Deviation 47.9 fL (36.4-46.3) H 02/16/22 RDW Coefficient of Variation 14.2 % (11.5-14.5) 02/16/22 Plt Count 147 K/uL (130-400) 02/16/22 MPV 11.9 fL (7.4-10.4) H 02/16/22 Neutrophils (%) (Auto) 66.8 % 02/16/22 Lymphocytes (%) (Auto) 22.9 % 02/16/22 Monocytes # (Auto) 0.69 K/uL (0.11-0.59) H 02/16/22 Eosinophils # (Auto) 0.01 K/uL (0-0.5) 02/16/22 Immature Granulocyte % (Auto) 0.1 % 02/16/22 Neutrophils # (Auto) 4.60 K/uL (1.4-6.5) 02/16/22 Lymphocytes # (Auto) 1.58 K/uL (1.2-3.4) 02/16/22 Monocytes # (Auto) 0.69 K/uL (0.11-0.59) H 02/16/22 Eosinophils # (Auto) 0.01 K/uL (0-0.5) 02/16/22 Basophils # (Auto) 0.01 K/uL (0-0.2) 02/16/22 Immature Granulocyte # (Auto) 0.01 K/uL (0.00-0.02) 02/16/22 Echinocytes 3+ 02/16/22 Na 132 mmol/L (136-145) L 02/16/22 K 3.6 mmol/L (3.5-5.1) 02/16/22 Cl 99 mmol/L (98-107) 02/16/22 CO2 27 mmol/L (21-32) 02/16/22 Anion Gap 6 (3-11) 02/16/22 BUN 29 mg/dl (6-23) H 02/16/22 Creatinine 1.84 mg/dl (0.6-1.4) H 02/16/22 Estimated GFR ( Amer) 43.0 ml/min 02/16/22 Estimated GFR (Non-Af Amer) 37.1 ml/min 02/16/22 BUN/Creatinine Ratio 15.8 (10-20) 02/16/22 Glu 113 mg/dl (70-99(Fasting)) H 02/16/22 Ca 7.3 mg/dl (8.5-10.1) L 02/16/22 Phosphorus Level 4.3 mg/dl (2.5-4.9) 02/16/22 Total Bilirubin 2.2 mg/dl (0.2-1.0) H 02/16/22 Direct Bilirubin 1.1 mg/dl (0-0.2) H 02/16/22 AST 469 U/L (13-39) H 02/16/22 ALT 145 U/L (7-52) H 02/16/22 Alkaline Phosphatase 331 U/L (34-104) H 02/16/22 TP 5.1 gm/dl (6.0-8.3) L 02/16/22 Albumin 2.5 gm/dl (3.4-5.0) L 02/16/22 Globulin 2.9 gm/dl (2.5-4.0) 02/15/22 Albumin/Globulin Ratio 0.9 (0.9-2) 02/15/22 Mg 1.8 mg/dl (1.7-2.4) 02/16/22 03:55 02/16/22 Calcium Level 7.3 mg/dl (8.5-10.1) L 02/16/22 03:55 02/16/22 Prothromb Time International Ratio 2.2 (0.9-1.1) H 02/15/22 17:05 02/15/22 Diagnostic Findings (Past 24 Hours) Chest X-Ray 02/15/22 14:28 XR chest 1V portable CLINICAL HISTORY: Atypical chest pain. COMPARISON STUDY: No previous studies for comparison. FINDINGS: Lung volumes are normal. No pneumothorax or pleural effusion is noted. There is no consolidation. Moderate enlargement of the cardiac silhouette is noted. There is possible pulmonary vascular congestion. IMPRESSION: Cardiomegaly. Pulmonary vascular congestion without overt pulmonary edema. ACT 112: Negative or not required by law. Electronically signed by: Ike Avalos M.D. 02/15/2022 3:19 PM I & O Totals 24 Hours 02/15/22 02/16/22 02/17/22 06:59 06:59 06:59 Intake Total 2286.950 / 2286.950 0 / 0 Output Total 301 / 301 Balance 1985.950 / 1985.950 0 / 0 Cumulative 02/15/22 14:06 thru 02/16/22 11:41 Intake Total 2286.950 Output Total 301 Balance 1985.950 RT Ventilator Mngmt (Last Documented) Ventilator Ordered Settings Respiratory Rate 19 02/16/22 04:23 Ventilator - PT Measurements Respiratory Rate 19 Coding Level of Care Code 17661 Subseq Hosp Care Lvl 3 Diagnoses Cardiac arrest due to underlying cardiac condition I46.2 Atrial fibrillation with RVR I48.91
[2022-02-16] MEDS ORDERED: POTASSIUM CHLORIDE CRTAB 20 MEQ TABCR PO STA (12:30)
--- NOTE | 2022-02-16 14:55 | Electrocardiogram Report ---
Test Reason : Blood Pressure : / mmHG Vent. Rate : 113 BPM Atrial Rate : 214 BPM P-R Int : 000 ms QRS Dur : 090 ms QT Int : 388 ms P-R-T Axes : 000 -03 -42 degrees QTc Int : 532 ms Atrial fibrillation with rapid ventricular response with premature ventricular or aberrantly conducte d complexes Marked ST abnormality, possible anterior subendocardial injury Prolonged QT Abnormal ECG No previous ECGs available Confirmed by Rl Weathers ([id number]) on 02/16/2022 2:55:08 PM Referred By: Confirmed By:Rl Weathers
--- NOTE | 2022-02-16 14:56 | Electrocardiogram Report ---
Test Reason : Blood Pressure : / mmHG Vent. Rate : 104 BPM Atrial Rate : 110 BPM P-R Int : 000 ms QRS Dur : 096 ms QT Int : 384 ms P-R-T Axes : 000 041 -51 degrees QTc Int : 504 ms Atrial fibrillation with rapid ventricular response with premature ventricular or aberrantly conducte d complexes Marked ST abnormality, possible inferior subendocardial injury Marked ST abnormality, possible anterolateral subendocardial injury Abnormal ECG When compared with ECG of 15-FEB-2022 14:30, (unconfirmed) ST now depressed in Lateral leads Confirmed by Rl Weathers ([id number]) on 02/16/2022 2:56:11 PM Referred By: Confirmed By:Rl Weathers
--- NOTE | 2022-02-16 14:56 | Electrocardiogram Report ---
Test Reason : Blood Pressure : / mmHG Vent. Rate : 117 BPM Atrial Rate : 153 BPM P-R Int : 000 ms QRS Dur : 096 ms QT Int : 358 ms P-R-T Axes : 000 032 -48 degrees QTc Int : 499 ms Atrial fibrillation with rapid ventricular response Marked ST abnormality, possible anterolateral subendocardial injury Abnormal ECG When compared with ECG of 15-FEB-2022 14:24, (unconfirmed) No significant change was found Confirmed by Rl Weathers ([id number]) on 02/16/2022 2:55:56 PM Referred By: Confirmed By:Rl Weathers
--- NOTE | 2022-02-16 15:01 | Electrocardiogram Report ---
Test Reason : Blood Pressure : / mmHG Vent. Rate : 109 BPM Atrial Rate : 081 BPM P-R Int : 000 ms QRS Dur : 098 ms QT Int : 348 ms P-R-T Axes : 000 050 -06 degrees QTc Int : 468 ms Atrial fibrillation with rapid ventricular response with premature ventricular or aberrantly conducte d complexes Nonspecific ST abnormality Abnormal ECG When compared with ECG of 15-FEB-2022 14:45, (unconfirmed) ST no longer depressed in Inferior leads ST less depressed in Anterior leads Nonspecific T wave abnormality has replaced inverted T waves in Inferior leads T wave amplitude has increased in Lateral leads Confirmed by Rl Weathers ([id number]) on 02/16/2022 3:00:55 PM Referred By: REFERRED SELF Confirmed By:Rl Weathers
--- NOTE | 2022-02-16 15:02 | Electrocardiogram Report ---
Test Reason : Blood Pressure : / mmHG Vent. Rate : 113 BPM Atrial Rate : 153 BPM P-R Int : 000 ms QRS Dur : 094 ms QT Int : 368 ms P-R-T Axes : 000 045 -02 degrees QTc Int : 504 ms Atrial fibrillation with rapid ventricular response with premature ventricular or aberrantly conducte d complexes Nonspecific ST abnormality Abnormal ECG When compared with ECG of 15-FEB-2022 19:55, (unconfirmed) No significant change was found Confirmed by Rl Weathers ([id number]) on 02/16/2022 3:02:29 PM Referred By: REFERRED SELF Confirmed By:Rl Weathers
--- NOTE | 2022-02-16 15:04 | Electrocardiogram Report ---
Test Reason : Blood Pressure : / mmHG Vent. Rate : 085 BPM Atrial Rate : 441 BPM P-R Int : 000 ms QRS Dur : 090 ms QT Int : 400 ms P-R-T Axes : 000 048 014 degrees QTc Int : 476 ms Atrial fibrillation with premature ventricular or aberrantly conducted complexes Nonspecific ST and T wave abnormality Abnormal ECG When compared with ECG of 15-FEB-2022 21:46, (unconfirmed) No significant change was found Confirmed by Rl Weathers ([id number]) on 02/16/2022 3:04:19 PM Referred By: REFERRED SELF Confirmed By:Rl Weathers
--- NOTE | 2022-02-16 15:06 | Electrocardiogram Report ---
Test Reason : Blood Pressure : / mmHG Vent. Rate : 109 BPM Atrial Rate : 113 BPM P-R Int : 000 ms QRS Dur : 092 ms QT Int : 382 ms P-R-T Axes : 000 047 002 degrees QTc Int : 514 ms Atrial fibrillation with rapid ventricular response with premature ventricular or aberrantly conducte d complexes Nonspecific ST abnormality Abnormal ECG When compared with ECG of 16-FEB-2022 01:35, (unconfirmed) Nonspecific T wave abnormality no longer evident in Anterior leads Confirmed by Rl Weathers ([id number]) on 02/16/2022 3:06:22 PM Referred By: REFERRED SELF Confirmed By:Rl Weathers
[2022-02-16 19:02] LABS: Partial Thromboplastin Ratio 2.7
[2022-02-16 19:24] LABS: Partial Thromboplastin Time 73.2 Seconds (21.0-31.0)
--- NOTE | 2022-02-16 20:10 | Hospitalist Progress Note ---
Date of Service February 16, 2022 Assessment & Plan (1) Cardiac arrest due to underlying cardiac condition: Plan: Cardiac arrest Atrial fibrillation with RVR Elevated troponin successful return of spontaneous circulation --ECHO: Grossly normal valvular structure and function. Left ventricle wall motion is normal. EF 60 to 65%. Right ventricle systolic function is normal. --CXR:Cardiomegaly. Pulmonary vascular congestion without overt pulmonary edema. 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 Due to diuretics, JOHNATHAN Monitor sodium, renal function Avoid nephrotoxic agents as able Continue IV fluids Hyperglycemia Check HbA1c . Atrial fibrillation Resume sotalol as able Xarelto on hold On IV heparin BPH On finasteride DVT Px: IV Heparin Code Status Full Code Admission and Anticipated Discharge Date Admission Date: February 15, 2022 Subjective Patient is seen and examined at bedside States feeling well today Denies any chest pain, shortness of breath, dizziness, nausea, abdominal pain Offers no other complaints Plan for cardiac catheterization tomorrow A. fib on monitor Review of Systems 2 Review of Systems: All systems reviewed & are unremarkable except as noted in Subjective Physical Exam Physical Exam: Physical Exam: Vitals signs as noted above General Appearance:Obese, no apparent distress Head: normocephalic, Atraumatic Eyes: normal inspection, EOMI Neck: supple, Trachea midline Respiratory/Chest: Normal breath sounds, CTA, No accessory muscle use Cardiovascular: Irregular irregular, No murmur, Tachycardia Abdomen/GI:Soft, Non tender, Bowel sounds present Extremities/Musculoskeletal:normal inspection, Trace pedal edema Neurologic/Psych:AAOX3, grossly no focal neurological deficits Skin: normal color, warm Results & Data Results & Data ([facility]) Vital Signs (Past 12 Hours) Vital Signs Pulse Resp BP Pulse Ox 02/16/22 17:23 115 H 18 125/80 97 02/16/22 16:01 94 H 21 122/87 98 02/16/22 16:00 91 H 02/16/22 15:01 89 17 121/91 98 02/16/22 14:01 96 H 18 130/99 97 05/22/22 13:00 86 19 100 02/16/22 12:00 93 H 21 119/85 98 02/16/22 11:00 104 H 24 113/82 97 02/16/22 10:01 113 H 27 H 123/86 98 02/16/22 09:01 103 H 21 130/97 97 Laboratory Results Short CBC 02/16/22 Range/Units 03:55 WBC 6.90 (4.8-10.8) K/uL Hgb 13.4 L (14.0-18.0) g/dL Hct 39.0 L (42-52) % Plt Count 147 (130-400) K/uL BMP 02/16/22 03:55 Sodium 132 L Potassium 3.6 Chloride 99 Carbon Dioxide 27 BUN 29 H Creatinine 1.84 H Glucose 113 H Calcium 7.3 L Liver Function 02/16/22 Range/Units 03:55 Total Bilirubin 2.2 H (0.2-1.0) mg/dl Direct Bilirubin 1.1 H (0-0.2) mg/dl AST 469 H (13-39) U/L ALT 145 H (7-52) U/L Alkaline Phosphatase 331 H (34-104) U/L Albumin 2.5 L (3.4-5.0) gm/dl
[2022-02-16] MEDS: MAGNESIUM OXIDE 400 MG TAB PO SCH (20:34)
[2022-02-17 02:23] LABS: Basophils # (auto) 0.01 K/uL (0-0.2); Basophils % (auto) 0.2 %; Eosinophils # (auto) 0.05 K/uL (0-0.5); Hematocrit (blood only) 35.6 % (42-52); Hemoglobin 12.2 g/dL (14.0-18.0); Lymphocytes # (auto) 1.76 K/uL (1.2-3.4); Lymphocytes % (auto) 36.7 %; Mean Corpuscular Hemoglobin 32.1 pg (25-34); Mean Corpuscular Hgb Conc 34.3 g/dL (32-36); Mean Corpuscular Volume 93.7 fL (80-100); Mean Platelet Volume 11.2 fL (7.4-10.4); Monocytes # (auto) 0.62 K/uL (0.11-0.59); Monocytes % (auto) 12.9 %; Neutrophils # (auto) 2.36 K/uL (1.4-6.5); Neutrophils % (auto) 49.2 %; Platelet Count 120 K/uL (130-400); RDW Coefficient of Variation 14.6 % (11.5-14.5); RDW Standard Deviation 49.6 fL (36.4-46.3)
[2022-02-17 02:46] LABS: Albumin Level 2.4 gm/dl (3.4-5.0); BUN Creatinine Ratio 14.9 (10-20); Bilirubin Direct 0.7 mg/dl (0-0.2); Bilirubin,Total 1.6 mg/dl (0.2-1.0); Calcium 7.5 mg/dl (8.5-10.1); Chol HDL Ratio 11.7 (0-5); Creatinine Clr Calc Pharmacy 67.6 ml/min; Est GFR (African American) 55.9 ml/min; Est GFR (Non-African American) 48.3 ml/min; Magnesium 1.8 mg/dl (1.7-2.4); Phosphorus 1.9 mg/dl (2.5-4.9); Potassium 3.9 mmol/L (3.5-5.1); Total Protein 4.9 gm/dl (6.0-8.3)
[2022-02-17 02:54] LABS: RBC Morphology Unremarkable
[2022-02-17 03:00] LABS: Partial Thromboplastin Ratio 2.1
[2022-02-17 03:06] LABS: Partial Thromboplastin Time 58.2 Seconds (21.0-31.0)
[2022-02-17] MEDS: HEPARIN SODIUM/DEXTROSE 25,000 UNITS/500 ML BAG IV SCH (03:37)
[2022-02-17] MEDS: SODIUM CHLORIDE 0.9% 1000ML 1,000 ML IV SCH ×3 (03:41→22:16)
[2022-02-17 08:21] LABS: Estimated Average Glucose 151 mg/dl; Hemoglobin A1C 6.9 % (4.5-5.6)
[2022-02-17] MEDS: FINASTERIDE 5 MG TAB PO SCH (08:55)
[2022-02-17] MEDS: ASCORBIC ACID 500 MG TAB PO SCH (08:55)
[2022-02-17] MEDS: CHOLECALCIFEROL 1,000 UNITS 25 MCG TAB PO SCH (08:55)
[2022-02-17] MEDS: METOPROLOL TARTRATE 25 MG TAB PO SCH (08:55)
[2022-02-17] MEDS ORDERED: SODIUM PHOSPHATE 3 MMOL/1 ML INFUSION IV STA (09:47)
[2022-02-17] MEDS ORDERED: SODIUM PHOSPHATE 21 MMOL in DEXTROSE 5% 500 ML IV ONE (10:30)
--- NOTE | 2022-02-17 11:47 | Critical Care Progress Note ---
Date of Service February 17, 2022 Assessment & Plan (1) Cardiac arrest due to underlying cardiac condition: (2) Atrial fibrillation with RVR: (3) Elevated LFTs: Plan: 66-year-old male who experienced an [id number] cardiac arrest with return of spontaneous circulation 02/16 with done remarkably well. Plan is for the patient to undergo cardiac catheterization. He is currently on a heparin drip. He was previously on Xarelto for atrial fibrillation. Blood pressure within parameters. Transaminitis is improving. Suspect secondary to ischemic hepatitis. Hepatitis panel pending. ELLIOT is improving as well. Continue gentle hydration. Replace electrolytes per protocol. Statin on hold due to transaminitis. Stable to downgrade from ICU status. Admission and Anticipated Discharge Date Admission Date: February 15, 2022 Subjective Patient seen and examined. No complaints. Review of Systems Review of Systems: All systems reviewed & are unremarkable except as noted in HPI & below Physical Exam Physical Exam: General: Alert. nontoxic. Skin: Warm, dry, Head: Atraumatic Ears, nose, mouth and throat: airway patent Cardiovascular: Normal peripheral perfusion Respiratory: no respiratory distress Gastrointestinal: Non distended Musculoskeletal: No deformity Results & Data Results & Data ([facility]) Vital Signs (Past 12 Hours) Vital Signs Pulse Resp BP Pulse Ox 02/17/22 10:00 98 H 21 150/110 H 98 02/17/22 09:30 88 21 97 02/17/22 09:00 99 H 19 156/98 H 98 02/17/22 08:30 87 21 97 02/17/22 08:00 91 H 20 160/102 H 97 02/17/22 07:30 84 19 97 02/17/22 07:00 84 19 97 02/17/22 06:30 84 21 98 02/17/22 06:01 100 H 18 142/102 H 97 02/17/22 06:00 93 H 23 98 02/17/22 05:30 110 H 16 97 02/17/22 05:00 107 H 18 164/131 H 95 02/17/22 04:55 111 H 13 97 02/17/22 04:50 100 H 19 92 02/17/22 04:45 102 H 15 96 02/17/22 04:40 106 H 15 96 02/17/22 04:35 92 H 15 96 02/17/22 04:30 88 16 96 02/17/22 04:25 105 H 15 96 02/17/22 04:20 87 15 97 02/17/22 04:15 91 H 15 97 02/17/22 04:10 87 16 96 02/17/22 04:05 98 H 16 97 02/17/22 04:00 101 H 16 133/110 H 96 02/17/22 03:55 101 H 16 96 02/17/22 03:50 97 H 17 95 02/17/22 03:45 99 H 15 97 02/17/22 03:40 108 H 19 97 02/17/22 03:35 86 17 95 02/17/22 03:30 97 H 15 97 02/17/22 03:25 95 H 16 98 02/17/22 03:20 104 H 17 95 02/17/22 03:15 105 H 15 98 02/17/22 03:10 125 H 23 96 02/17/22 03:05 123 H 16 94 02/17/22 03:00 114 H 20 133/104 H 95 02/17/22 02:55 106 H 18 97 02/17/22 02:50 107 H 19 96 02/17/22 02:45 102 H 18 97 02/17/22 02:40 118 H 20 96 02/17/22 02:35 100 H 19 97 02/17/22 02:30 101 H 20 97 02/17/22 02:25 106 H 20 97 02/17/22 02:20 104 H 20 97 02/17/22 02:15 99 H 20 96 02/17/22 02:10 90 23 97 02/17/22 02:05 104 H 19 98 02/17/22 02:00 116 H 18 138/104 H 99 02/17/22 01:55 110 H 19 97 02/17/22 01:50 91 H 19 99 02/17/22 01:45 105 H 20 97 02/17/22 01:40 101 H 19 97 02/17/22 01:35 120 H 21 82 L 02/17/22 01:30 99 H 16 97 02/17/22 01:25 99 H 18 97 02/17/22 01:20 102 H 17 96 02/17/22 01:15 101 H 16 96 Coding Level of Care Code 78595 Subseq Hosp Care Lvl 1 Diagnoses Cardiac arrest due to underlying cardiac condition I46.2 Atrial fibrillation with RVR I48.91 Elevated LFTs R79.89
[2022-02-17] MEDS ORDERED: fentaNYL citrate 100 MCG/2 ML VIAL ONE (12:47)
[2022-02-17] MEDS ORDERED: niCARdipine HCL INJ 2.5 MG/ML 10 ML AMP ONE (12:47)
[2022-02-17] MEDS ORDERED: MIDAZOLAM HCL 1 MG/ML 2ML VIAL ONE (12:47)
[2022-02-17] MEDS ORDERED: HEPARIN (PORCINE) 1000 UNIT/ML 10 ML (CATH LAB USE ONLY) ONE (12:47)
[2022-02-17] MEDS ORDERED: NITROGLYCERIN/D5W 100MCG/ML 20ML SYR ONE (12:48)
--- NOTE | 2022-02-17 14:05 | Cardiac Catheterization ---
Date of Service February 17, 2022 Cardiac Cath Report Cardiac Cath Report Procedure: 1. Left heart catheterization 2. Coronary angiography History: This is a 66-year-old male patient with a history of paroxysmal atrial fibrillation treated with sotalol. He was life flighted here from [facility] after a cardiac arrest for which she was resuscitated with CPR and an AED. Procedure summary: After informed consent was obtained the patient was brought to the cardiac catheterization lab. Her Barbeau maneuver was negative and indicated good flow to the right hand. Therefore a right transradial approach was performed using a retrograde Salinger technique. Preformed 5 Nauruan diagnostic catheters were utilized for the coronary angiograms. A 5 Nauruan pigtail catheter was utilized for left heart pressures. Following the procedure the patient was returned to his room in stable condition. ACC data: Start time 1321 End time 1345 Opening aortic pressure 116/98 Closing aortic pressure 137/92 LV pressure 146/26 Sedation 1 mg intravenous Versed IV fluid 50 cc normal saline Contrast 100 cc Visipaque Fluoroscopy time 7.1 minutes Radiation 1627 mGy DAP 151.81 Ramírez per centimeter squared Right dominant system AUC score 9 Coronary angiography: Selective injections of the left coronary artery revealed the left main trunk to be long and widely patent. There is evidence of calcium in the proximal and mid LAD there is nonobstructive coronary artery disease in the proximal and mid LAD with the mid distal and distal LAD being patent however also being a small caliber. The left circumflex artery consists principally of a large lateral marginal branch which bifurcates into 2 equal sized branches. The left circumflex artery has luminal irregularities but is widely patent. Injections into the right coronary artery revealed to be dominant. The right coronary artery is widely patent. Summary: The patient has nonobstructive coronary artery disease of the proximal and mid segment of the LAD. The right coronary artery which is dominant and the left circumflex artery are widely patent. Recommendations: Medical management of patient's coronary artery disease.
--- NOTE | 2022-02-17 14:51 | Hospitalist Progress Note ---
Date of Service February 17, 2022 Assessment & Plan (1) Cardiac arrest due to underlying cardiac condition: Plan: Cardiac arrest Atrial fibrillation with RVR Elevated troponin successful return of spontaneous circulation --ECHO: Grossly normal valvular structure and function. Left ventricle wall motion is normal. EF 60 to 65%. Right ventricle systolic function is normal. --CXR:Cardiomegaly. Pulmonary vascular congestion without overt pulmonary edema. --S/P Cardiac Cath: The patient has nonobstructive coronary artery disease of the proximal and mid segment of the LAD. The right coronary artery which is dominant and the left circumflex artery are widely patent. 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 Due to diuretics, JOHNATHAN Monitor sodium, renal function Avoid nephrotoxic agents as able Continue IV fluids Cr: 1.8>1.4 Sodium 131>134 Hypophosphatemia Replace as needed DM II New diagnosis HbA1c 6.9 Will add ISS Associate Director Of Biostatistics consulted . Atrial fibrillation Resume sotalol as able Xarelto on hold On IV heparin BPH On finasteride DVT Px: IV Heparin Code Status Full Code Admission and Anticipated Discharge Date Admission Date: February 15, 2022 Subjective Patient is seen and examined at bedside prior to Cath Doing well today Offers no complaints Had Cardiac Catheterization Denies any chest pain, shortness of breath, dizziness, nausea, abdominal pain Review of Systems Review of Systems: All systems reviewed & are unremarkable except as noted in Subjective Physical Exam Physical Exam: Physical Exam: Vitals signs as noted above General Appearance:Obese, no apparent distress Head: normocephalic, Atraumatic Eyes: normal inspection, EOMI Neck: supple, Trachea midline Respiratory/Chest: Normal breath sounds, CTA, No accessory muscle use Cardiovascular: Irregular irregular, No murmur Abdomen/GI:Soft, Non tender, Bowel sounds present Extremities/Musculoskeletal:normal inspection, Trace pedal edema Neurologic/Psych:AAOX3, grossly no focal neurological deficits Skin: normal color, warm Results & Data Results & Data ([facility]) Vital Signs (Past 12 Hours) Vital Signs Pulse Pulse Resp BP BP Pulse Ox 02/17/22 14:30 87 21 181/108 H 98 02/17/22 14:16 83 19 162/102 H 98 02/17/22 14:15 94 H 20 99 02/17/22 14:12 81 22 165/113 H 100 02/17/22 14:11 84 14 99 02/17/22 14:04 84 17 133/93 99 02/17/22 13:53 82 17 139/96 97 02/17/22 13:02 68 16 150/105 H 98 02/17/22 12:45 87 17 98 02/17/22 12:30 87 20 97 02/17/22 12:15 86 22 97 02/17/22 12:00 85 19 152/103 H 97 02/17/22 11:45 88 21 99 02/17/22 11:30 84 18 97 02/17/22 11:15 86 18 96 02/17/22 11:00 78 17 157/98 H 97 02/17/22 10:45 93 H 20 96 02/17/22 10:30 85 18 97 02/17/22 10:15 85 20 96 02/17/22 10:00 98 H 21 150/110 H 98 02/17/22 09:30 88 21 97 02/17/22 09:00 99 H 19 156/98 H 98 02/17/22 08:30 87 21 97 02/17/22 08:00 91 H 20 160/102 H 97 02/17/22 07:30 84 19 97 02/17/22 07:00 84 19 97 02/17/22 06:30 84 21 98 02/17/22 06:01 100 H 18 142/102 H 97 02/17/22 06:00 93 H 23 98 02/17/22 05:30 110 H 16 97 02/17/22 05:00 107 H 18 164/131 H 95 02/17/22 04:55 111 H 13 97 02/17/22 04:50 100 H 19 92 02/17/22 04:45 102 H 15 96 02/17/22 04:40 106 H 15 96 02/17/22 04:35 92 H 15 96 02/17/22 04:30 88 16 96 02/17/22 04:25 105 H 15 96 02/17/22 04:20 87 15 97 02/17/22 04:15 91 H 15 97 02/17/22 04:10 87 16 96 02/17/22 04:05 98 H 16 97 02/17/22 04:00 101 H 16 133/110 H 96 02/17/22 03:55 101 H 16 96 02/17/22 03:50 97 H 17 95 02/17/22 03:45 99 H 15 97 02/17/22 03:40 108 H 19 97 02/17/22 03:35 86 17 95 02/17/22 03:30 97 H 15 97 02/17/22 03:25 95 H 16 98 02/17/22 03:20 104 H 17 95 02/17/22 03:15 105 H 15 98 02/17/22 03:10 125 H 23 96 02/17/22 03:05 123 H 16 94 02/17/22 03:00 114 H 20 133/104 H 95 02/17/22 02:55 106 H 18 97 02/17/22 02:50 107 H 19 96 02/17/22 02:45 102 H 18 97 Laboratory Results Short CBC 02/17/22 Range/Units 02:07 WBC 4.80 (4.8-10.8) K/uL Hgb 12.2 L (14.0-18.0) g/dL Hct 35.6 L (42-52) % Plt Count 120 L (130-400) K/uL BMP 02/17/22 02:07 Sodium 134 L Potassium 3.9 Chloride 104 Carbon Dioxide 26 BUN 22 Creatinine 1.48 H D Glucose 111 H Calcium 7.5 L Liver Function 02/17/22 Range/Units 02:07 Total Bilirubin 1.6 H (0.2-1.0) mg/dl Direct Bilirubin 0.7 H (0-0.2) mg/dl AST 343 H (13-39) U/L ALT 119 H (7-52) U/L Alkaline Phosphatase 255 H (34-104) U/L Albumin 2.4 L (3.4-5.0) gm/dl
--- NOTE | 2022-02-17 15:17 | Electrocardiogram Report ---
Test Reason : Blood Pressure : / mmHG Vent. Rate : 097 BPM Atrial Rate : 117 BPM P-R Int : 000 ms QRS Dur : 088 ms QT Int : 368 ms P-R-T Axes : 000 034 032 degrees QTc Int : 467 ms Atrial fibrillation with premature ventricular or aberrantly conducted complexes Nonspecific ST abnormality Abnormal ECG When compared with ECG of 16-FEB-2022 06:19, No significant change was found Confirmed by Rl Weathers ([id number]) on 02/17/2022 3:17:21 PM Referred By: REFERRED SELF Confirmed By:Rl Weathers
[2022-02-17] MEDS ORDERED: GLUCOSE 10 TABS/TUBE PO PRN (15:22)
[2022-02-17] MEDS ORDERED: GLUCOSE 40% GEL 15 GM TUBE PO PRN (15:22)
[2022-02-17] MEDS ORDERED: CARBOHYDRATES FOR HYPOGLYCEMIA PO PRN (15:22)
[2022-02-17] MEDS ORDERED: DEXTROSE 50% 50 ML SYRINGE IV PRN (15:22)
[2022-02-17] MEDS ORDERED: GLUCAGON FOR INJ 1 MG VIAL SQ PRN (15:22)
[2022-02-17] MEDS: LABETALOL HCL IV 5 MG/ML 20ML IV PRN (15:58)
[2022-02-17] MEDS ORDERED: LACTATED RINGER'S 1,000 ML IV SCH (16:45)
--- NOTE | 2022-02-17 17:05 | Cardiology Consultation ---
Date of Consultation February 17, 2022 Assessment & Plan (1) Cardiac arrest due to underlying cardiac condition: (2) Atrial fibrillation with RVR: (3) Chest pain: (4) Elevated troponin: (5) Anticoagulant long-term use: 1. Cardiac arrest: There is no clear reversible reason for his cardiac ar rest. It is possible it was proarrhythmia from sotalol although there is no evidence of that and that would be unusual as a sudden event but conceivable. He did however have a cardiomyopathy years ago which recovered, although his ejection fraction recovered that is also a possibility and perhaps more likely as sudden years after recovery following a cardiomyopathy does occur. With no reversible cause the safest approach would be to implant a defibrillator. 2. Atrial fibrillation: He has had a long history of atrial fibrillation, he has been working with in atrial fibrillation clinic where plans are in place to try to maintain sinus rhythm. That apparently had been working relatively well with the use of sotalol until this event. He is now back in atrial fibrillation. Assuming that further attempts will be made to maintain sinus rhythm it may be prudent to implant a dual-chamber pacemaker even though the atrial lead currently would not be usable. It is very little additional risk and potentially very beneficial. 3. Chest discomfort: His description of right-sided chest discomfort with radiation to his right arm is unusual however with the finding of nonobstructive coronary artery disease I do not think it is an anginal equivalent. 4. Elevated troponin: His troponin did elevate substantially, this is consistent with his cardiac arrest. It did drop quickly as expected. 5. Anticoagulation: He was on Xarelto, he is now 2 days off of Xarelto which will be safer for device implant. I am however going to give him a dose of heparin this evening since he does remain in atrial fibrillation. I discussed dual-chamber ICD implantation with the patient, his daughter and his . I reviewed the indications, procedure, risks and alternatives with them and they understand and he agrees to proceed. Consent obtained. I also discussed conscious sedation with him and they are agreeable. History of Present Illness Reason for Consultation: Cardiac arrest Attending Physician: Yovanny Fernandez MD History of Present Illness This is a 66-year-old male who has a history of nonischemic cardiomyopathy, this was identified I believe in 2011 by his family's history (his is a nurse an d his daughter is a physician's emergency veterinary assistant), they believe his ejection fraction was about 25% at the time and he wore a LifeVest for a time. His ejection fraction recovered and that was the time his atrial fibrillation was identified so I suspect it was a rate related cardiomyopathy. Subsequently he did well for some time however he has been having a lot of difficulty with dyspnea on exertion with minimal activities but he is able to play golf. Around July 2021 he was started on sotalol, initially was 80 mg twice a day and more recently 120 mg twice a day and he has been maintained on Xarelto 20 mg daily. [place] and he was not feeling well, an ambulance was called and while he was in the ambulance he had a cardiac arrest, and AED that was present recommended to shock which was delivered and he awoke. He remembers getting into the ambulance, and then waking up feeling very short of breath which gradually resolved. He does describe right-sided chest discomfort rating to his right arm which he does not recall having before. [place] a helicopter at a high school athletic field and he was transferred to the helicopter and brought here. Echocardiography here shows normal left ventricular function, he has been in atrial fibrillation since arrival (his family believes he was in sinus rhythm as of February 04, 2022). His electrocardiogram did not show evidence of QT prolongation here. His cardiac enzymes did increase but his electrocardiogram did not show evidence of acute myocardial infarction. He did undergo catheterization today where he had medical grade coronary disease and no evidence of occlusion. It appears therefore that his arrest was not related to ischemia or infarction. Allergies Allergy/AdvReac Type Severity Reaction Status Date / Time No Known Allergies Allergy Unverified 02/15/22 15:15 Home Medications Medication Instructions Recorded Confirmed Type ascorbic acid (vitamin C) 500 mg 500 mg PO DAILY 02/15/22 02/15/22 History tablet (Vitamin C) cholecalciferol (vitamin D3) 25 25 mcg PO DAILY 02/15/22 02/15/22 History mcg (1,000 unit) tablet (Vitamin D3) cyanocobalamin (vitamin B-12) 1,000 mcg IM MONTHLY 02/15/22 02/15/22 History 1,000 mcg/mL injection solution finasteride 5 mg tablet 5 mg PO DAILY 02/15/22 02/15/22 History furosemide 40 mg tablet 40 mg PO DAILY 02/15/22 02/15/22 History lisinopril 20 mg tablet 20 mg PO DAILY 02/15/22 02/15/22 History rivaroxaban 20 mg tablet (Xarelto) 20 mg PO DAILY 02/15/22 02/15/22 History sotalol 120 mg tablet 120 mg PO BID 02/15/22 02/15/22 History Patient History Social History Smoking Status: Former smoker Tobacco Type: Cigarettes Second Hand Exposure: No; Hx Alcohol Use: Yes Alcohol type: hard liquor Hx Substance Use: No Preferred Language: Montenegrin Communication Ability: Effective Director Of Math Required: No Beliefs That Will Affect Care: None marital status: Current Living Situation: Spouse Feels Safe at Home: Yes Assistive Devices: Cane Review of Systems Review of Systems: All systems reviewed & are unremarkable except as noted in HPI & below Physical Exam Physical Exam: Constitutional: Alert, cooperative and in no distress. HEENT: Unremarkable Neck: No jugular venous distention, carotid pulses are normal and equal bilaterally without bruits. Pulmonary: Clear to auscultation bilaterally. Cardiac: Regular rhythm with no murmur, gallop or rub. Abdomen: Soft, nontender with normal bowel sounds. Extremities: No edema. Distal pulses intact. Neurologic: No focal findings. Gait is steady. Skin: No rash, ecchymoses or petechiae. Results & Data ([facility]) Vital Signs (Past 12 Hours) Vital Signs Pulse Pulse Resp BP BP Pulse Ox 02/17/22 16:45 80 16 99 02/17/22 16:31 78 26 H 174/112 H 96 02/17/22 16:30 86 19 100 02/17/22 16:15 76 20 99 02/17/22 16:12 76 16 153/109 H 98 02/17/22 16:00 93 H 21 161/114 H 99 02/17/22 15:45 87 17 98 02/17/22 15:30 78 20 170/116 H 98 02/17/22 15:15 83 21 161/123 H 98 02/17/22 15:00 86 20 163/117 H 99 02/17/22 14:45 101 H 20 99 02/17/22 14:30 87 21 181/108 H 98 02/17/22 14:16 83 19 162/102 H 98 02/17/22 14:15 94 H 20 99 02/17/22 14:12 81 22 165/113 H 100 02/17/22 14:11 84 14 99 02/17/22 14:04 84 17 133/93 99 02/17/22 13:53 82 17 139/96 97 02/17/22 13:02 68 16 150/105 H 98 02/17/22 12:45 87 17 98 02/17/22 12:30 87 20 97 02/17/22 12:15 86 22 97 02/17/22 12:00 85 19 152/103 H 97 02/17/22 11:45 88 21 99 02/17/22 11:30 84 18 97 02/17/22 11:15 86 18 96 02/17/22 11:00 78 17 157/98 H 97 02/17/22 10:45 93 H 20 96 02/17/22 10:30 85 18 97 02/17/22 10:15 85 20 96 02/17/22 10:00 98 H 21 150/110 H 98 02/17/22 09:30 88 21 97 02/17/22 09:00 99 H 19 156/98 H 98 02/17/22 08:30 87 21 97 02/17/22 08:00 91 H 20 160/102 H 97 02/17/22 07:30 84 19 97 02/17/22 07:00 84 19 97 02/17/22 06:30 84 21 98 02/17/22 06:01 100 H 18 142/102 H 97 02/17/22 06:00 93 H 23 98 02/17/22 05:30 110 H 16 97 Laboratory Results Cardiac Enzymes 02/17/22 Range/Units 02:07 AST 343 H (13-39) U/L Coagulation 02/16/22 02/17/22 Range/Units 18:12 02:07 APTT 73.2 H* 58.2 H* (21.0-31.0) Seconds Lipids 02/17/22 Range/Units 02:07 Triglycerides 218 H (0-150) mg/dl Cholesterol 152 (0-200) mg/dl HDL Cholesterol 13 mg/dl Cholesterol/HDL Ratio 11.7 H (0-5) CBC 02/17/22 Range/Units 02:07 WBC 4.80 (4.8-10.8) K/uL RBC 3.80 L (4.7-6.1) M/uL Hgb 12.2 L (14.0-18.0) g/dL Hct 35.6 L (42-52) % Plt Count 120 L (130-400) K/uL Neut # (Auto) 2.36 (1.4-6.5) K/uL Lymph # (Auto) 1.76 (1.2-3.4) K/uL [place] # (Auto) 0.62 H (0.11-0.59) K/uL Eos # (Auto) 0.05 (0-0.5) K/uL Baso # (Auto) 0.01 (0-0.2) K/uL Comprehensive Metabolic Panel 02/17/22 Range/Units 02:07 Sodium 134 L (136-145) mmol/L Potassium 3.9 (3.5-5.1) mmol/L Chloride 104 (98-107) mmol/L Carbon Dioxide 26 (21-32) mmol/L BUN 22 (6-23) mg/dl Creatinine 1.48 H D (0.6-1.4) mg/dl Glucose 111 H (70-99(Fasting)) mg/dl Calcium 7.5 L (8.5-10.1) mg/dl Direct Bilirubin 0.7 H (0-0.2) mg/dl AST 343 H (13-39) U/L ALT 119 H (7-52) U/L Alkaline Phosphatase 255 H (34-104) U/L Total Protein 4.9 L (6.0-8.3) gm/dl Albumin 2.4 L (3.4-5.0) gm/dl Intake and Output 02/17/22 02/17/22 02/17/22 06:59 14:59 22:59 Intake Total 1006.483 / 4078.383 1104.284 / 1104.284 Output Total 900 / 1201 325 / 325 Balance 106.483 / 2877.383 779.284 / 779.284 Intake: IV 976.483 / 3008.383 1104.284 / 1104.284 Heparin Sodium/Dextrose 25,000 86.900 / 214.633 131.367 / 131.367 units In 500 ml @ 700 UNITS/HR 14 mls/hr IV .Q24H [facility] Rx#: [id number] Sodium Chloride 0.9% 1000ML 1, 889.583 / 2793.750 972.917 / 972.917 000 ml @ 125 mls/hr IV .Q8H [facility] Rx#:[id number] Oral 30 / 1070 Output: Urine 900 / 1200 325 / 325 Other: Weight 131.7 kg 131.7 kg Weight Measurement Method Built in [facility] Patient Weight 02/18/22 06:59 Weight 131.7 kg Diagnostic Findings Telemetry: Atrial fibrillation, heart rate averaging around 100 bpm since admission. A little bit less this afternoon. PG Care Time/CCT Total # of Minutes Spent Total Time Spent with Patient: Total time spent is greater than 50% in coordination of care (as documented) at patient's floor/unit and/or counseling patient: Coding Level of Care Code 01987 Initial Inpt Care Lvl 3 Diagnoses Cardiac arrest due to underlying cardiac condition I46.2 Atrial fibrillation with RVR I48.91 Chest pain R07.2 Chest pain type: precordial pain Elevated troponin R77.8 Anticoagulant long-term use Z79.01 (1) Chest pain Chest pain type: precordial pain Qualified Code(s): R07.2 - Precordial pain
[2022-02-17] MEDS ORDERED: HEPARIN SOD (PORCINE) 1000 UNIT/ML IV ONE (17:22)
[2022-02-17] MEDS: INSULIN ASPART PER UNIT SC SCH ×2 (17:37→20:44)
[2022-02-17] MEDS: METOPROLOL TARTRATE 50 MG TAB PO SCH (17:56)
[2022-02-17] MEDS: MAGNESIUM OXIDE 400 MG TAB PO SCH (20:27)
[2022-02-17] MEDS ORDERED: HEPARIN SOD (PORCINE) 1000 UNIT/ML IV SCH (23:30)
[2022-02-18 01:00] LABS: Partial Thromboplastin Ratio 1.1; Partial Thromboplastin Time 31.6 Seconds (21.0-31.0)
[2022-02-18] MEDS: HEPARIN SODIUM/DEXTROSE 25,000 UNITS/500 ML BAG IV SCH (02:02)
[2022-02-18 05:27] LABS: Basophils # (auto) 0.02 K/uL (0-0.2); Basophils % (auto) 0.4 %; Eosinophils # (auto) 0.09 K/uL (0-0.5); Hematocrit (blood only) 34.9 % (42-52); Hemoglobin 11.8 g/dL (14.0-18.0); Immature Granulocytes # (auto) 0.01 K/uL (0.00-0.02); Immature Granulocytes % (auto) 0.2 %; Lymphocytes # (auto) 1.43 K/uL (1.2-3.4); Lymphocytes % (auto) 31.4 %; Mean Corpuscular Hemoglobin 32.5 pg (25-34); Mean Corpuscular Hgb Conc 33.8 g/dL (32-36); Mean Corpuscular Volume 96.1 fL (80-100); Mean Platelet Volume 11.6 fL (7.4-10.4); Monocytes % (auto) 13.2 %; Neutrophils % (auto) 52.8 %; Platelet Count 105 K/uL (130-400); RDW Standard Deviation 49.7 fL (36.4-46.3); Red Blood Count 3.63 M/uL (4.7-6.1); White Blood Count 4.55 K/uL (4.8-10.8)
[2022-02-18] MEDS: SODIUM CHLORIDE 0.9% 1000ML 1,000 ML IV SCH (05:48)
[2022-02-18] MEDS ORDERED: LACTATED RINGER'S 1,000 ML IV SCH (06:00)
[2022-02-18] MEDS ORDERED: ceFAZolin 330 MG/ML 1 GM VIAL IV SCH (06:00)
[2022-02-18 06:01] LABS: Albumin Level 2.3 gm/dl (3.4-5.0); Bilirubin Direct 0.6 mg/dl (0-0.2); Bilirubin,Total 1.6 mg/dl (0.2-1.0); Calcium 7.7 mg/dl (8.5-10.1); Creatinine Clr Calc Pharmacy 100.6 ml/min; Est GFR (African American) 89.9 ml/min; Est GFR (Non-African American) 77.5 ml/min; Magnesium 1.8 mg/dl (1.7-2.4); Phosphorus 2.8 mg/dl (2.5-4.9); Potassium 3.9 mmol/L (3.5-5.1); Total Protein 4.9 gm/dl (6.0-8.3)
[2022-02-18] MEDS ORDERED: LIDOCAINE 1% LOCAL 20 ML VIAL ONE (06:48)
[2022-02-18] MEDS ORDERED: WATER, STERILE FOR INJ 10 ML VIAL ONE (06:48)
[2022-02-18] MEDS ORDERED: BACITRACIN OINT 0.9 GM PKT ONE (06:48)
[2022-02-18] MEDS ORDERED: VANCOMYCIN HCL 1000MG/20ML VIAL ONE (06:49)
[2022-02-18] MEDS ORDERED: fentaNYL citrate 100 MCG/2 ML VIAL ONE (07:33)
[2022-02-18] MEDS ORDERED: ceFAZolin 330 MG/ML 1 GM VIAL ONE (07:33)
[2022-02-18] MEDS ORDERED: MIDAZOLAM HCL 5 MG/ML 1 ML VIAL ONE (07:33)
--- NOTE | 2022-02-18 07:48 | Pre Anesthesia Assessment ---
Date of Service February 18, 2022 Pre Sedation Assessment Vital Signs Temp Pulse Pulse Resp BP BP Pulse Ox 02/18/22 04:00 36.9 C 93 H 21 122/97 94 02/18/22 02:00 96 H 17 97 02/18/22 00:00 36.9 C 93 H 19 128/98 96 02/17/22 22:31 71 02/17/22 22:00 76 16 97 02/17/22 20:00 83 19 139/92 99 02/17/22 19:30 79 20 98 02/17/22 19:20 36.9 C 02/17/22 19:04 81 20 147/103 H 93 02/17/22 19:01 93 H 27 H 94 02/17/22 19:00 89 20 99 02/17/22 18:00 88 24 157/113 H 99 02/17/22 17:30 87 22 149/108 H 98 02/17/22 17:00 85 24 173/117 H 99 02/17/22 16:45 80 16 99 02/17/22 16:31 78 26 H 174/112 H 96 02/17/22 16:30 86 19 100 02/17/22 16:15 76 20 99 02/17/22 16:12 76 16 153/109 H 98 02/17/22 16:00 93 H 21 161/114 H 99 02/17/22 15:45 87 17 98 02/17/22 15:30 78 20 170/116 H 98 02/17/22 15:15 83 21 161/123 H 98 02/17/22 15:00 86 20 163/117 H 99 02/17/22 14:45 101 H 20 99 02/17/22 14:30 87 21 181/108 H 98 02/17/22 14:16 83 19 162/102 H 98 02/17/22 14:15 94 H 20 99 02/17/22 14:12 81 22 165/113 H 100 02/17/22 14:11 84 14 99 02/17/22 14:04 84 17 133/93 99 02/17/22 13:53 82 17 139/96 97 02/17/22 13:02 68 16 150/105 H 98 02/17/22 12:45 87 17 98 02/17/22 12:30 87 20 97 02/17/22 12:15 86 22 97 02/17/22 12:00 85 19 152/103 H 97 02/17/22 11:45 88 21 99 02/17/22 11:30 84 18 97 02/17/22 11:15 86 18 96 02/17/22 11:00 78 17 157/98 H 97 02/17/22 10:45 93 H 20 96 02/17/22 10:30 85 18 97 02/17/22 10:15 85 20 96 02/17/22 10:00 98 H 21 150/110 H 98 02/17/22 09:30 88 21 97 02/17/22 09:00 99 H 19 156/98 H 98 02/17/22 08:30 87 21 97 02/17/22 08:00 91 H 20 160/102 H 97 Pulse Ox 02/18/22 04:00 02/18/22 02:00 02/18/22 00:00 02/17/22 22:31 02/17/22 22:00 02/17/22 20:00 02/17/22 19:30 02/17/22 19:20 02/17/22 19:04 02/17/22 19:01 02/17/22 19:00 02/17/22 18:00 98 02/17/22 17:30 02/17/22 17:00 02/17/22 16:45 02/17/22 16:31 02/17/22 16:30 02/17/22 16:15 02/17/22 16:12 02/17/22 16:00 02/17/22 15:45 02/17/22 15:30 02/17/22 15:15 02/17/22 15:00 02/17/22 14:45 02/17/22 14:30 02/17/22 14:16 02/17/22 14:15 02/17/22 14:12 02/17/22 14:11 02/17/22 14:04 02/17/22 13:53 02/17/22 13:02 02/17/22 12:45 02/17/22 12:30 02/17/22 12:15 02/17/22 12:00 02/17/22 11:45 02/17/22 11:30 02/17/22 11:15 02/17/22 11:00 02/17/22 10:45 02/17/22 10:30 02/17/22 10:15 02/17/22 10:00 02/17/22 09:30 02/17/22 09:00 02/17/22 08:30 02/17/22 08:00 Cardiovascular RRR, no murmur, no edema Respiratory normal respiratory effort, lungs clear to auscultation Pre-Sedation Airway Assessment Smoking Status: Former smoker Hx Sleep Apnea: No Short, Thick Neck: No Thyromental Distance: > or= 3.5 Finger Breadths Oral Cavity: + WNL Mallampati Class: III ASA: ASA3 NPO Status Date of Last Intake of Fluids: 02/17/22 Time of Last Intake of Fluids: 20:00 Date of Last Intake of Solid Food: 02/17/22 Time of Last Intake of Solid Foods: 20:00 Procedure Planning Contraindications for Sedation: none Current Medications Reviewed: Yes Notes The planned sedation has been discussed with the patient. Informed Consent was obtained. I have identified the patient, determined the appropriateness of sedation and have assessed the patient immediately prior to the procedure. All medicine(s) and interventions are by my order.
[2022-02-18 08:06] LABS: HBSAG NON-REACTIVE (NON-REACTIVE); Hepatitis A Antibody IgM NON-REACTIVE (NON-REACTIVE); Hepatitis B Core Antibody IgM NON-REACTIVE (NON-REACTIVE)
[2022-02-18] MEDS ORDERED: KETOROLAC TROMETHAMINE 10 MG TABLET PO PRN (09:18)
[2022-02-18] MEDS ORDERED: ACETAMINOPHEN 325 MG TAB PO PRN (09:18)
--- NOTE | 2022-02-18 09:18 | Electrophysiology Report ---
Date of Service February 18, 2022 Electrophysiology Procedure Electrophysiology Procedure Report Preoperative diagnosis: Resuscitated sudden cardiac Postoperative diagnosis: Same Procedure: Dual-chamber ICD implantation Surgeon: Flo De Leon MD Estimated blood loss: 20 cc Complications: None Disposition: Cardiology recovery Procedure details: After obtaining informed consent for the procedure, the patient was brought to the laboratory and prepped and draped in the standard sterile manner. Dye was injected the left arm IV site to opacify the left subclavian vein. The subclavian vein was identified and found to be free of obstruction. The left prepectoral region was anesthetized with 1% lidocaine local anesthetic and left axillary venipuncture was performed by percutaneous technique and a guidewire placed through the left subclavian vein into the superior vena cava. The area was further infiltrated with 1% lidocaine local anesthetic and a 7 cm incision was made parallel to the left clavicle and 2 cm below it and carried down to the anterior pectoralis fascia. An ICD pocket was formed by blunt dissection anterior to the pectoralis fascia and a vancomycin soaked sponge was placed in the pocket. A 10.5 [place] Medtronic lead introducer was placed over the guidewire into the left subclavian vein, the dilator and guidewire were removed and a bipolar dual coil active fixation steroid tipped ventricular ICD lead was advanced through the introducer into the superior vena cava. A guidewire was placed through the introducer and the introducer was stripped from the lead and guidewire. An 8 [place] Medtronic lead introducer was placed over the guidewire into the left subclavian vein, the dilator and guidewire were removed and a bipolar active fixation steroid tipped atrial lead was advanced through the introducer into the superior vena cava. A guidewire was placed back through the introducer and the introducer was stripped from the lead and guidewire. Using a curved stylette the ventricular lead was advanced through the right ventricular outflow tract into the pulmonary artery and then using a straight stylette was positioned in the right ventricular apex. The screw was extended fixing the lead in position. Pacing and sensing thresholds were evaluated in bipolar configuration and are recorded on the implant data sheet. Using a curved stylette the atrial lead was positioned in the region of the atrial appendage and the screw extended fixing the lead in position. Pacing and sensing thresholds were evaluated in bipolar configuration and are recorded on the implant data sheet. Once the leads were in position they were attached to the anterior pectoralis fascia using 2 sutures of 2-0 silk around each lead collar. The vancomycin soaked sponge was removed from the pocket, hemostasis was obtained, the ICD was attached to the leads and placed in the pocket with the leads coiled beneath it. The incision was closed with a running double subcutaneous closure of 3-0 Vicryl absorbable suture, followed by running subcuticular skin closure of 4-0 Vicryl absorbable suture. Bacitracin ointment was placed on the incision and a dressing applied. [facility] [place] Electrophysiology codes Indication for Procedure (1) Cardiac arrest due to underlying cardiac condition: ICD Procedure 1: ICD: 89303 Insert single or dual ICD system Miscellaneous Procedures Procedure 1: EP Miscellaneous: 34605 Contrast injection for venography Procedure 2: EP Miscellaneous: 88103-19 Vengraphy, extremity PG Moderate Sedation Codes Moderate Sedation Codes Procedure 1: Sedation/Anesthesia: 82534 Mod Sedation by the same physician;Init15 Min Child Age 5 & Up Procedure 2: Sedation/Anesthesia: 64719 Mod Sedation by the same physician; Ea [id number] Minutes
[2022-02-18] MEDS: INSULIN ASPART PER UNIT SC SCH ×4 (10:28→21:23)
[2022-02-18] MEDS: FINASTERIDE 5 MG TAB PO SCH (10:29)
[2022-02-18] MEDS: METOPROLOL TARTRATE 50 MG TAB PO SCH ×2 (10:29→21:26)
[2022-02-18] MEDS: CHOLECALCIFEROL 1,000 UNITS 25 MCG TAB PO SCH (10:29)
[2022-02-18] MEDS: ASCORBIC ACID 500 MG TAB PO SCH (10:29)
--- NOTE | 2022-02-18 12:00 | Cardiology Progress Note ---
Date of Service February 18, 2022 Assessment & Plan (1) Cardiac arrest due to underlying cardiac condition: (2) Atrial fibrillation with RVR: (3) Elevated troponin: Plan: The patient is doing well post ICD implant. Patient remains in atrial fibrillation. The plan is to restart anticoagulation tomorrow. Admission and Anticipated Discharge Date Admission Date: February 15, 2022 Subjective The patient is comfortable and eating lunch. Review of Systems Review of Systems: Review of Systems: See HPI for pertinent positives. All other 10 point review of systems are negative. Physical Exam Physical Exam: General: no acute distress and stated age Head: normocephalic, no masses, lesions, tenderness or abnormalities Eyes: conjunctiva are pink and non-injected, sclera clear Neck: supple, no adenopathy, no bruits, normal jugular venous pulse, no hepatojugular reflux Chest: normal shape and normal respiratory effort Lungs: clear to auscultation and percussion Cardiac Exam: - irregular rate & rhythm, no murmurs gallops or rubs - normal S1, normal S2 Pulses: 2(+) throughout Abdomen: abdomen soft, non-tender, no abnormal masses and no hepatosplenomegaly Musculoskeletal: no gait disturbance, no joint inflammation, no deforming arthritis Extremities: no edema and no cyanosis Neuro: grossly normal exam Results & Data ([facility]) Vital Signs (Past 12 Hours) Vital Signs Temp Pulse Pulse Resp BP BP Pulse Ox 02/18/22 11:30 36.9 C 90 16 143/95 H 96 02/18/22 11:03 36.9 C 99 H 16 113/83 97 02/18/22 10:45 37.0 C 93 H 16 142/99 H 96 02/18/22 10:25 36.8 C 84 16 131/85 96 02/18/22 10:10 36.9 C 86 16 126/87 97 02/18/22 09:40 88 20 107/69 97 02/18/22 09:25 88 20 118/91 96 02/18/22 04:00 36.9 C 93 H 21 122/97 94 02/18/22 02:00 96 H 17 97 02/18/22 00:00 36.9 C 93 H 19 128/98 96 Laboratory Results Laboratory Results - last 24 hr 02/15/22 02/16/22 02/17/22 14:35 03:55 16:38 WBC RBC Hgb Hct MCV MCH MCHC RDW Std Deviation RDW Coeff of Krystle Plt Count MPV Immature Gran % (Auto) Neut % (Auto) Lymph % (Auto) [place] % (Auto) Eos % (Auto) Baso % (Auto) Neut # (Auto) Lymph # (Auto) [place] # (Auto) Eos # (Auto) Baso # (Auto) Immature Gran # (Auto) APTT PTT Ratio Sodium Potassium Chloride Carbon Dioxide Anion Gap BUN Creatinine Est Cr Clr Drug Dosing Est GFR ( Amer) Est GFR (Non-Af Amer) BUN/Creatinine Ratio Glucose POC Glucose 100 H Calcium Phosphorus Magnesium Total Bilirubin Direct Bilirubin AST ALT Alkaline Phosphatase Total Protein Albumin Hepatitis A IgM Ab NON-REACTIVE Hep Bs Antigen NON-REACTIVE Hep Bs Ag Confirmation TNP Hep B Core IgM Ab NON-REACTIVE Hepatitis C Ab (EIA) NON-REACTIVE NON-REACTIVE Hep C Ab Signal/Cutoff 0.03 0.03 02/17/22 02/18/22 02/18/22 20:32 00:06 04:59 WBC RBC Hgb Hct MCV MCH MCHC RDW Std Deviation RDW Coeff of Krystle Plt Count MPV Immature Gran % (Auto) Neut % (Auto) Lymph % (Auto) [place] % (Auto) Eos % (Auto) Baso % (Auto) Neut # (Auto) Lymph # (Auto) [place] # (Auto) Eos # (Auto) Baso # (Auto) Immature Gran # (Auto) APTT 31.6 H PTT Ratio 1.1 Sodium 136 Potassium 3.9 Chloride 106 Carbon Dioxide 27 Anion Gap 3 BUN 15 Creatinine 1.00 D Est Cr Clr Drug Dosing 100.6 Est GFR ( Amer) 89.9 Est GFR (Non-Af Amer) 77.5 BUN/Creatinine Ratio 15.0 Glucose 99 POC Glucose 119 H Calcium 7.7 L Phosphorus 2.8 Magnesium 1.8 Total Bilirubin 1.6 H Direct Bilirubin 0.6 H AST 247 H ALT 100 H Alkaline Phosphatase 231 H Total Protein 4.9 L Albumin 2.3 L Hepatitis A IgM Ab Hep Bs Antigen Hep Bs Ag Confirmation Hep B Core IgM Ab Hepatitis C Ab (EIA) Hep C Ab Signal/Cutoff 02/18/22 02/18/22 02/18/22 04:59 10:09 11:33 WBC 4.55 L RBC 3.63 L Hgb 11.8 L Hct 34.9 L MCV 96.1 MCH 32.5 MCHC 33.8 RDW Std Deviation 49.7 H RDW Coeff of Krystle 14.0 Plt Count 105 L MPV 11.6 H Immature Gran % (Auto) 0.2 Neut % (Auto) 52.8 Lymph % (Auto) 31.4 [place] % (Auto) 13.2 Eos % (Auto) 2.0 Baso % (Auto) 0.4 Neut # (Auto) 2.40 Lymph # (Auto) 1.43 [place] # (Auto) 0.60 H Eos # (Auto) 0.09 Baso # (Auto) 0.02 Immature Gran # (Auto) 0.01 APTT PTT Ratio Sodium Potassium Chloride Carbon Dioxide Anion Gap BUN Creatinine Est Cr Clr Drug Dosing Est GFR ( Amer) Est GFR (Non-Af Amer) BUN/Creatinine Ratio Glucose POC Glucose 96 130 H Calcium Phosphorus Magnesium Total Bilirubin Direct Bilirubin AST ALT Alkaline Phosphatase Total Protein Albumin Hepatitis A IgM Ab Hep Bs Antigen Hep Bs Ag Confirmation Hep B Core IgM Ab Hepatitis C Ab (EIA) Hep C Ab Signal/Cutoff Medications Administered Current Inpatient Medications Acetaminophen (Acetaminophen 325 Mg Tab) 650 mg PO Q4H PRN PRN Reason: Mild pain (rating 1,2,3) Stop: 03/20/22 09:17 Ascorbic Acid (Ascorbic Acid 500 Mg Tab) 500 mg PO DAILY [facility] Stop: 03/18/22 08:59 Last Admin: 02/18/22 10:29 Dose: 500 mg Documented by: Cefazolin Sodium (Cefazolin 330 Mg/Ml 1 Gm Vial) 3,000 mg IV PREOP KEO; Protocol Last Admin: 02/18/22 08:56 Dose: 3,000 mg Documented by: Dextrose (Dextrose 50% 50 Ml Syringe) 25 - 50 ml IV UD PRN; Protocol PRN Reason: Hypoglycemia Protocol Stop: 03/19/22 15:21 Finasteride (Finasteride 5 Mg Tab) 5 mg PO DAILY [facility] Stop: 03/18/22 08:59 Last Admin: 02/18/22 10:29 Dose: 5 mg Documented by: Glucagon (Glucagon For Inj 1 Mg Vial) 1 mg SQ UD PRN; Protocol PRN Reason: Hypoglycemia Protocol Stop: 03/19/22 15:21 Glucose (Glucose 10 Tabs/Tube) 4 - 8 tabs PO UD PRN; Protocol PRN Reason: Hypoglycemia Protocol Stop: 03/19/22 15:21 Glucose (Glucose 40% Gel 15 Gm Tube) 15 - 30 gm PO UD PRN; Protocol PRN Reason: Hypoglycemia Protocol Stop: 03/19/22 15:21 Lactated Ringer's (Lr) 1,000 mls @ 15 mls/hr IV .Q24H [facility] Stop: 02/21/22 00:39 Last Admin: 02/18/22 06:07 Dose: 15 mls/hr Documented by: Insulin Aspart (Insulin Aspart Per Unit) 0 units SC ACHS [facility] Stop: 03/19/22 16:29 Last Admin: 02/18/22 10:28 Dose: 2 units Documented by: Ketorolac Tromethamine (Ketorolac Tromethamine 10 Mg Tablet) 10 mg PO Q6H PRN PRN Reason: Pain (rating 4,5,6,7,8,9,10) Stop: 02/23/22 09:17 Labetalol HCl (Labetalol Hcl Iv 5 Mg/Ml 20ml) 10 mg IV Q6H PRN PRN Reason: Hypertension Stop: 03/19/22 15:31 Last Admin: 02/17/22 15:58 Dose: 10 mg Documented by: Magnesium Oxide (Magnesium Oxide 400 Mg Tab) 400 mg PO QPM [facility] Stop: 03/18/22 20:59 Last Admin: 02/17/22 20:27 Dose: 400 mg Documented by: Metoprolol Succinate (Metoprolol Succ 50mg Ext Rel Tab) 200 mg PO QAM [facility] Stop: 03/21/22 08:59 Metoprolol Tartrate (Metoprolol Tartrate 50 Mg Tab) 50 mg PO BID [facility] Stop: 02/18/22 23:59 Last Admin: 02/18/22 10:29 Dose: 50 mg Documented by: Miscellaneous (Carbohydrates For Hypoglycemia ) 15 - 30 gm PO UD PRN PRN Reason: Hypoglycemia Protocol Stop: 03/19/22 15:21 Vitamin D (Cholecalciferol 1,000 Units 25 Mcg Tab) 1,000 units PO DAILY [facility] Stop: 03/18/22 08:59 Last Admin: 02/18/22 10:29 Dose: 1,000 units Documented by:
--- NOTE | 2022-02-18 15:01 | Electrocardiogram Report ---
Test Reason : Blood Pressure : / mmHG Vent. Rate : 097 BPM Atrial Rate : 156 BPM P-R Int : 000 ms QRS Dur : 090 ms QT Int : 360 ms P-R-T Axes : 000 021 -04 degrees QTc Int : 457 ms Atrial fibrillation Nonspecific ST and T wave abnormality Abnormal ECG When compared with ECG of 17-FEB-2022 06:12, No significant change was found Confirmed by Rl Weathers ([id number]) on 02/18/2022 3:00:44 PM Referred By: REFERRED SELF Confirmed By:Rl Weathers
--- NOTE | 2022-02-18 15:12 | Hospitalist Progress Note ---
Date of Service February 18, 2022 Assessment & Plan (1) Cardiac arrest due to underlying cardiac condition: Plan: Cardiac arrest Atrial fibrillation with RVR Elevated troponin successful return of spontaneous circulation --ECHO: Grossly normal valvular structure and function. Left ventricle wall motion is normal. EF 60 to 65%. Right ventricle systolic function is normal. --CXR:Cardiomegaly. Pulmonary vascular congestion without overt pulmonary edema. --S/P Cardiac Cath: The patient has nonobstructive coronary artery disease of the proximal and mid segment of the LAD. The right coronary artery which is dominant and the left circumflex artery are widely patent. Appreciate cardiology, assessment technician input lipid panel: Triglycerides 218, LDL 95, total cholesterol 152 HbA1C:6.9 IV heparin discontinued Continue metoprolol Will benefit from adding Aspirin 81mg Hold statin secondary to transaminitis Started on metoprolol Had ICD placement today Plan for resuming home anticoagulation tomorrow Hypotension on presentation Secondary to above Received IV fluids Monitor BP Lisinopril, sotalol held Elevated LFTs Monitor LFTs Likely secondary to ischemic hepatitis Hepatitis panel pending LFTs trending down ELLIOT Hyponatremia ? Due to diuretics, JOHNATHAN Monitor sodium, renal function Avoid nephrotoxic agents as able Received IV fluids Cr: 1.8>1.4>1.0 Sodium 131>134>136 Hypophosphatemia Replace as needed DM II New diagnosis HbA1c 6.9 Will add ISS Elementary Educator consulted . Atrial fibrillation sotalol, Xarelto held Started on metoprolol IV heparin discontinued today Plan to resume anticoagulation tomorrow BPH On finasteride DVT Px: SCDs Code Status Full Code Admission and Anticipated Discharge Date Admission Date: February 15, 2022 Subjective Patient is seen and examined at bedside prior to Cath Patient had ICD placement earlier today Offers no complaints post procedure Denies any chest pain, shortness of breath, dizziness, nausea, abdominal pain Review of Systems Review of Systems: All systems reviewed & are unremarkable except as noted in Subjective Physical Exam Physical Exam: Physical Exam: Vitals signs as noted above General Appearance:Obese, no apparent distress Head: normocephalic, Atraumatic Eyes: normal inspection, EOMI Neck: supple, Trachea midline Respiratory/Chest: Normal breath sounds, CTA, +ICD Cardiovascular: Irregular irregular, No murmur Abdomen/GI:Soft, Non tender, Bowel sounds present Extremities/Musculoskeletal:normal inspection, Trace pedal edema Neurologic/Psych:AAOX3, grossly no focal neurological deficits Skin: normal color, warm Results & Data Results & Data ([facility]) Vital Signs (Past 12 Hours) Vital Signs Temp Pulse Pulse Resp BP BP Pulse Ox 02/18/22 14:09 37.0 C 97 H 16 134/72 97 02/18/22 13:00 36.9 C 84 16 131/84 97 02/18/22 12:30 36.8 C 92 H 16 134/76 97 02/18/22 12:00 37.0 C 95 H 16 140/97 96 02/18/22 11:30 36.9 C 90 16 143/95 H 96 02/18/22 11:03 36.9 C 99 H 16 113/83 97 02/18/22 10:45 37.0 C 93 H 16 142/99 H 96 02/18/22 10:25 36.8 C 84 16 131/85 96 02/18/22 10:10 36.9 C 86 16 126/87 97 02/18/22 09:40 88 20 107/69 97 02/18/22 09:25 88 20 118/91 96 02/18/22 04:00 36.9 C 93 H 21 122/97 94 Laboratory Results Short CBC 02/18/22 Range/Units 04:59 WBC 4.55 L (4.8-10.8) K/uL Hgb 11.8 L (14.0-18.0) g/dL Hct 34.9 L (42-52) % Plt Count 105 L (130-400) K/uL BMP 02/18/22 04:59 Sodium 136 Potassium 3.9 Chloride 106 Carbon Dioxide 27 BUN 15 Creatinine 1.00 D Glucose 99 Calcium 7.7 L Liver Function 02/18/22 Range/Units 04:59 Total Bilirubin 1.6 H (0.2-1.0) mg/dl Direct Bilirubin 0.6 H (0-0.2) mg/dl AST 247 H (13-39) U/L ALT 100 H (7-52) U/L Alkaline Phosphatase 231 H (34-104) U/L Albumin 2.3 L (3.4-5.0) gm/dl
[2022-02-18] MEDS: MAGNESIUM OXIDE 400 MG TAB PO SCH (21:25)
[2022-02-19] MEDS: LABETALOL HCL IV 5 MG/ML 20ML IV PRN (03:18)
[2022-02-19 05:48] LABS: Hematocrit (blood only) 36.1 % (42-52); Hemoglobin 11.7 g/dL (14.0-18.0); Mean Corpuscular Hemoglobin 31.5 pg (25-34); Mean Corpuscular Hgb Conc 32.4 g/dL (32-36); Mean Corpuscular Volume 97.3 fL (80-100); RDW Coefficient of Variation 13.7 % (11.5-14.5); RDW Standard Deviation 48.7 fL (36.4-46.3); Red Blood Count 3.71 M/uL (4.7-6.1); White Blood Count 5.16 K/uL (4.8-10.8)
[2022-02-19 06:15] LABS: Mean Platelet Volume 11.5 fL (7.4-10.4); Platelet Count 97 K/uL (130-400); Platelet Estimate Decreased (Normal)
[2022-02-19 06:27] LABS: Albumin Globulin Ratio 0.9 (0.9-2); Albumin Level 2.5 gm/dl (3.4-5.0); BUN Creatinine Ratio 14.1 (10-20); Bilirubin,Total 1.4 mg/dl (0.2-1.0); Calcium 8.1 mg/dl (8.5-10.1); Creatinine Clr Calc Pharmacy 110.1 ml/min; Est GFR (African American) 99.4 ml/min; Est GFR (Non-African American) 85.8 ml/min; Globulin 2.7 gm/dl (2.5-4.0); Magnesium 1.8 mg/dl (1.7-2.4); Phosphorus 3.1 mg/dl (2.5-4.9); Potassium 4.1 mmol/L (3.5-5.1); Total Protein 5.2 gm/dl (6.0-8.3)
--- NOTE | 2022-02-19 07:40 | Post Anesthesia Assessment ---
Date of Service February 19, 2022 Post Sedation Assessment Vital Signs Temp Pulse Pulse Resp BP BP Pulse Ox 02/19/22 07:06 99 H 02/19/22 04:49 16 139/90 02/19/22 02:55 36.5 C 82 20 149/111 H 97 02/19/22 00:00 93 H 02/18/22 23:00 37.1 C 93 H 20 148/94 H 98 02/18/22 19:46 36.7 C 90 18 142/88 H 96 02/18/22 16:09 36.9 C 90 16 138/84 98 02/18/22 15:16 89 02/18/22 15:09 36.6 C 81 16 124/76 96 02/18/22 14:09 37.0 C 97 H 16 134/72 97 02/18/22 13:00 36.9 C 84 16 131/84 97 02/18/22 12:30 36.8 C 92 H 16 134/76 97 02/18/22 12:00 37.0 C 95 H 16 140/97 96 02/18/22 11:30 36.9 C 90 16 143/95 H 96 02/18/22 11:03 36.9 C 99 H 16 113/83 97 02/18/22 10:45 37.0 C 93 H 16 142/99 H 96 02/18/22 10:25 36.8 C 84 16 131/85 96 02/18/22 10:10 36.9 C 86 16 126/87 97 02/18/22 09:40 88 20 107/69 97 02/18/22 09:25 88 20 118/91 96 Recovery Score Activity: Moves 4 extremities Respiration: Deep Breath/Cough Circulation: +/-20% PreAnes Value Consciousness: Fully Awake Oxygen Saturation: > 92% On Room Air Post Anesthesia Score: 10 Discharge Sedation Level of Care: Fast Track Phase II Post Sedation Plan On clinical assessment, the patient appears to have tolerated the sedation without complications. Patient is recovering as anticipated. Patient will continue to be monitored by nursing and may be discharged when sedation discharge criteria are met per below protocol. Upon Completions of procedure up to 15 minutes continue every 5 minute vital signs and the P.A.R. score; then discharge to a Phase I or Fast Track to Phase II per the following guidelines: * Discharge Patient to appropriate Phase II area if PAR is 8 or greater or return to pre- procedure baseline. The post - procedure orders will be as directed. * If PAR score is less than 8 or not return to pre-procedure baseline then patient will follow Phase I monitoring till PAR is reached for Phase II. The Phase I may be done in procedure room or may call to secure a Phase I area. * If naloxone or flumazenil are used for reversal, hold in Phase I for continued monitoring from when last reversal dose was given for a minimum of 60 minutes or longer pending the nurse and/or physician discretion of patient condition before discharge to Phase II. Please call the Sedation Physician to re-evaluate and complete post-note for discharge to Phase II area. Do NOT discharge from procedure sedation or Phase 1 until post- sedation evaluation note is complete by procedure /sedation MD Sedation Discharge Instructions to be given to the patient at discharge to home.
--- NOTE | 2022-02-19 08:27 | XRay Report ---
XR chest 2V PA/lateral HISTORY: Left-sided pacemaker placement. COMPARISON: Chest 02/15/2022. FINDINGS: Interval placement left-sided pacemaker/defibrillator. The leads appear intact. No pneumoth orax. No pleural effusions. The heart is top normal in size. No evidence for pulmonary edema. No new focal lung consolidations. IMPRESSION: Interval placement of a left-sided pacemaker/defibrillator. No pneumothorax. ACT 112: Negative or not required by law. Electronically signed by: Steven Leigh M.D. 02/19/2022 8:25 AM
[2022-02-19] MEDS: METOPROLOL SUCC 50MG EXT REL TAB PO SCH (08:51)
[2022-02-19] MEDS: INSULIN ASPART PER UNIT SC SCH ×4 (08:51→20:06)
[2022-02-19] MEDS: FINASTERIDE 5 MG TAB PO SCH (08:51)
[2022-02-19] MEDS: ASCORBIC ACID 500 MG TAB PO SCH (08:51)
[2022-02-19] MEDS: CHOLECALCIFEROL 1,000 UNITS 25 MCG TAB PO SCH (08:51)
--- NOTE | 2022-02-19 09:10 | Cardiology Progress Note ---
Date of Service February 19, 2022 Assessment & Plan (1) Status post implantation of automatic cardioverter/defibrillator (AICD): (2) Atrial fibrillation with RVR: Plan: 1. Postop day #1: The site looks good, the device is working well and leads are in good position. He is stable for discharge from my standpoint. I will put wound care instructions in his discharge. 2. Atrial fibrillation: His heart rate is better, averaging around 100, and that was on 100 mg of metoprolol tartrate throughout the day yesterday, today he received 200 mg of metoprolol succinate. I suspect that will control his heart rate adequately for now and the device will monitor his heart rate. Admission and Anticipated Discharge Date Admission Date: February 15, 2022 Subjective He is feeling quite well, he has minor incisional discomfort but nothing significant. No chest discomfort or shortness of breath. Physical Exam Physical Exam: The site is clean and dry with minimal blood on the dressing, no significant ecchymosis, no erythema or swelling. Lungs are clear Cardiac rhythm is irregular with no rub. Results & Data ([facility]) Vital Signs (Past 12 Hours) Vital Signs Temp Pulse Pulse Resp BP Pulse Ox 02/19/22 07:48 36.6 C 92 H 20 138/92 96 02/19/22 07:06 99 H 02/19/22 04:49 16 139/90 02/19/22 02:55 36.5 C 82 20 149/111 H 97 02/19/22 00:00 93 H 02/18/22 23:00 37.1 C 93 H 20 148/94 H 98 Laboratory Results Cardiac Enzymes 02/19/22 Range/Units 05:31 AST 220 H (13-39) U/L CBC 02/19/22 Range/Units 05:31 WBC 5.16 (4.8-10.8) K/uL RBC 3.71 L (4.7-6.1) M/uL Hgb 11.7 L (14.0-18.0) g/dL Hct 36.1 L (42-52) % Plt Count 97 L (130-400) K/uL Comprehensive Metabolic Panel 02/19/22 Range/Units 05:31 Sodium 136 (136-145) mmol/L Potassium 4.1 (3.5-5.1) mmol/L Chloride 103 (98-107) mmol/L Carbon Dioxide 28 (21-32) mmol/L BUN 13 (6-23) mg/dl Creatinine 0.92 (0.6-1.4) mg/dl Glucose 96 (70-99(Fasting)) mg/dl Calcium 8.1 L (8.5-10.1) mg/dl AST 220 H (13-39) U/L ALT 87 H (7-52) U/L Alkaline Phosphatase 198 H (34-104) U/L Total Protein 5.2 L (6.0-8.3) gm/dl Albumin 2.5 L (3.4-5.0) gm/dl Intake and Output 02/18/22 02/19/22 02/19/22 22:59 06:59 14:59 Intake Total 1150 / 2510.699 625 / 2510.699 Output Total 700 / 2275 1075 / 2275 Balance 450 / 235.699 -450 / 235.699 Intake: IV 1000 / 1255.699 Lactated Ringer's 1,000 ml @ 15 1000 / 1000 mls/hr IV .Q24H [facility] Rx#: [id number] Oral 150 / 1255 625 / 1255 Output: Urine 700 / 2275 1075 / 2275 Other: Weight 131.7 kg 133.4 kg Weight Measurement Method Built in [facility] Diagnostic Findings Postop ECG: Atrial fibrillation with appropriate inhibition Telemetry: Atrial fibrillation throughout, heart rate averaging around 100 today Chest x-ray: Good lead position, no pneumothorax ICD evaluation: Excellent pacing and sensing characteristics PG Care Time/CCT Total # of Minutes Spent Total Time Spent with Patient: Total time spent is greater than 50% in coordination of care (as documented) at patient's floor/unit and/or counseling patient: Coding Level of Care Code 29815 Post Operative Follow-Up Diagnoses Status post implantation of automatic cardioverter/defibrillator (AICD) Z95.810 Atrial fibrillation with RVR I48.91 CPT Codes Implantable Defib dual lead programming - 87985 ([id number])
[2022-02-19] MEDS: RIVAROXABAN 20 MG TAB PO SCH (10:20)
--- NOTE | 2022-02-19 11:35 | Cardiology Progress Note ---
Date of Service February 19, 2022 Assessment & Plan (1) Cardiac arrest due to underlying cardiac condition: (2) Atrial fibrillation with RVR: (3) Elevated troponin: Plan: EP help appreciated. The ICD was implanted without complication and looks good today. He is currently in a rate controlled atrial fibrillation. He just started the metoprolol XL 200 mg twice daily this morning. I think it would be better if he stays through today. He is going to discuss with his where they want to follow-up. I gave him the option of following with us [facility] which they will discuss. Admission and Anticipated Discharge Date Admission Date: February 15, 2022 Subjective The patient is comfortable and sitting in a chair. No new cardiac complaints. Review of Systems Review of Systems: Review of Systems: See HPI for pertinent positives. All other 10 point review of systems are negative. Physical Exam Physical Exam: General: no acute distress and stated age Head: normocephalic, no masses, lesions, tenderness or abnormalities Eyes: conjunctiva are pink and non-injected, sclera clear Neck: supple, no adenopathy, no bruits, normal jugular venous pulse, no hepatojugular reflux Chest: normal shape and normal respiratory effort Lungs: clear to auscultation and percussion Cardiac Exam: - irregular rate & rhythm, no murmurs gallops or rubs - normal S1, normal S2 Pulses: 2(+) throughout Abdomen: abdomen soft, non-tender, no abnormal masses and no hepatosplenomegaly Musculoskeletal: no gait disturbance, no joint inflammation, no deforming arthri tis Extremities: no edema and no cyanosis Neuro: grossly normal exam Results & Data ([facility]) Vital Signs (Past 12 Hours) Vital Signs Temp Pulse Pulse Resp BP Pulse Ox 02/19/22 11:03 36.9 C 90 20 123/80 97 02/19/22 07:48 36.6 C 92 H 20 138/92 96 02/19/22 07:06 99 H 02/19/22 04:49 16 139/90 02/19/22 02:55 36.5 C 82 20 149/111 H 97 02/19/22 00:00 93 H Laboratory Results Laboratory Results - last 24 hr 02/18/22 02/18/22 02/18/22 11:33 16:37 20:19 WBC RBC Hgb Hct MCV MCH MCHC RDW Std Deviation RDW Coeff of Krystle Plt Count MPV Platelet Estimate Sodium Potassium Chloride Carbon Dioxide Anion Gap BUN Creatinine Est Cr Clr Drug Dosing Est GFR ( Amer) Est GFR (Non-Af Amer) BUN/Creatinine Ratio Glucose POC Glucose 130 H 112 H 100 H Calcium Phosphorus Magnesium Total Bilirubin AST ALT Alkaline Phosphatase Total Protein Albumin Globulin Albumin/Globulin Ratio 02/19/22 02/19/22 02/19/22 05:31 05:31 07:13 WBC 5.16 RBC 3.71 L Hgb 11.7 L Hct 36.1 L MCV 97.3 MCH 31.5 MCHC 32.4 RDW Std Deviation 48.7 H RDW Coeff of Krystle 13.7 Plt Count 97 L MPV 11.5 H Platelet Estimate Decreased L Sodium 136 Potassium 4.1 Chloride 103 Carbon Dioxide 28 Anion Gap 5 BUN 13 Creatinine 0.92 Est Cr Clr Drug Dosing 110.1 Est GFR ( Amer) 99.4 Est GFR (Non-Af Amer) 85.8 BUN/Creatinine Ratio 14.1 Glucose 96 POC Glucose 92 Calcium 8.1 L Phosphorus 3.1 Magnesium 1.8 Total Bilirubin 1.4 H AST 220 H ALT 87 H Alkaline Phosphatase 198 H Total Protein 5.2 L Albumin 2.5 L Globulin 2.7 Albumin/Globulin Ratio 0.9 Medications Administered Current Inpatient Medications Acetaminophen (Acetaminophen 325 Mg Tab) 650 mg PO Q4H PRN PRN Reason: Mild pain (rating 1,2,3) Stop: 03/20/22 09:17 Ascorbic Acid (Ascorbic Acid 500 Mg Tab) 500 mg PO DAILY [facility] Stop: 03/18/22 08:59 Last Admin: 02/19/22 08:51 Dose: 500 mg Documented by: Dextrose (Dextrose 50% 50 Ml Syringe) 25 - 50 ml IV UD PRN; Protocol PRN Reason: Hypoglycemia Protocol Stop: 03/19/22 15:21 Finasteride (Finasteride 5 Mg Tab) 5 mg PO DAILY [facility] Stop: 03/18/22 08:59 Last Admin: 02/19/22 08:51 Dose: 5 mg Documented by: Glucagon (Glucagon For Inj 1 Mg Vial) 1 mg SQ UD PRN; Protocol PRN Reason: Hypoglycemia Protocol Stop: 03/19/22 15:21 Glucose (Glucose 10 Tabs/Tube) 4 - 8 tabs PO UD PRN; Protocol PRN Reason: Hypoglycemia Protocol Stop: 03/19/22 15:21 Glucose (Glucose 40% Gel 15 Gm Tube) 15 - 30 gm PO UD PRN; Protocol PRN Reason: Hypoglycemia Protocol Stop: 03/19/22 15:21 Insulin Aspart (Insulin Aspart Per Unit) 0 units SC ACHS [facility] Stop: 03/19/22 16:29 Last Admin: 02/19/22 08:51 Dose: 2 units Documented by: Ketorolac Tromethamine (Ketorolac Tromethamine 10 Mg Tablet) 10 mg PO Q6H PRN PRN Reason: Pain (rating 4,5,6,7,8,9,10) Stop: 02/23/22 09:17 Labetalol HCl (Labetalol Hcl Iv 5 Mg/Ml 20ml) 10 mg IV Q6H PRN PRN Reason: Hypertension Stop: 03/19/22 15:31 Last Admin: 02/19/22 03:18 Dose: 10 mg Documented by: Magnesium Oxide (Magnesium Oxide 400 Mg Tab) 400 mg PO QPM [facility] Stop: 03/18/22 20:59 Last Admin: 02/18/22 21:25 Dose: 400 mg Documented by: Metoprolol Succinate (Metoprolol Succ 50mg Ext Rel Tab) 200 mg PO QAM KEO Stop: 03/21/22 08:59 Last Admin: 02/19/22 08:51 Dose: 200 mg Documented by: Miscellaneous (Carbohydrates For Hypoglycemia ) 15 - 30 gm PO UD PRN PRN Reason: Hypoglycemia Protocol Stop: 03/19/22 15:21 Rivaroxaban (Rivaroxaban 20 Mg Tab) 20 mg PO DAILY [facility] Stop: 03/21/22 09:44 Last Admin: 02/19/22 10:20 Dose: 20 mg Documented by: Vitamin D (Cholecalciferol 1,000 Units 25 Mcg Tab) 1,000 units PO DAILY [facility] Stop: 03/18/22 08:59 Last Admin: 02/19/22 08:51 Dose: 1,000 units Documented by:
--- NOTE | 2022-02-19 13:57 | Electrocardiogram Report ---
Test Reason : Blood Pressure : / mmHG Vent. Rate : 103 BPM Atrial Rate : 105 BPM P-R Int : 000 ms QRS Dur : 084 ms QT Int : 366 ms P-R-T Axes : 000 042 013 degrees QTc Int : 479 ms Atrial fibrillation with rapid ventricular response Nonspecific ST abnormality Abnormal ECG When compared with ECG of 18-FEB-2022 10:55, No significant change was found Confirmed by Rl Weathers ([id number]) on 02/19/2022 1:57:13 PM Referred By: REFERRED SELF Confirmed By:Rl Weathers
--- NOTE | 2022-02-19 18:24 | Hospitalist Progress Note ---
Date of Service February 19, 2022 delayed entry date of service noted above Assessment & Plan (1) Cardiac arrest due to underlying cardiac condition: Plan: per Dr. Fernandez's notes with addendum: Cardiac arrest Atrial fibrillation with RVR Elevated troponin successful return of spontaneous circulation --ECHO: Grossly normal valvular structure and function. Left ventricle wall motion is normal. EF 60 to 65%. Right ventricle systolic function is normal. --CXR:Cardiomegaly. Pulmonary vascular congestion without overt pulmonary edema. --S/P Cardiac Cath: The patient has nonobstructive coronary artery disease of the proximal and mid segment of the LAD. The right coronary artery which is dominant and the left circumflex artery are widely patent. Appreciate cardiology, fabrication technician input lipid panel: Triglycerides 218, LDL 95, total cholesterol 152 HbA1C:6.9 IV heparin discontinued Continue metoprolol Will benefit from adding Aspirin 81mg Hold statin secondary to transaminitis Started on metoprolol Had ICD placement 02/18 02/19 stable overall monitor while on Metoprolol BID Hypotension on presentation Secondary to above Received IV fluids Monitor BP Lisinopril, sotalol held 02/19 BP stable Elevated LFTs Monitor LFTs Likely secondary to ischemic hepatitis Hepatitis panel pending 02/19 LFTs trending down ELLIOT Hyponatremia ? Due to diuretics, JOHNATHAN Monitor sodium, renal function Avoid nephrotoxic agents as able Received IV fluids Cr: 1.8>1.4>1.0 Sodium 131>134>136 Hypophosphatemia Replace as needed DM II New diagnosis HbA1c 6.9 ISS Clinical Asst consulted . Atrial fibrillation sotalol, Xarelto held Started on metoprolol IV heparin discontinued usual Xarelto resumed BPH On finasteride Disposition d/c when cleared by surgery Admission and Anticipated Discharge Date Admission Date: February 15, 2022 Subjective ff up for acute CHF, etc seen resting in bed, comfortable states he feels better overall mild pain over the pacemaker site no chest pain, dyspnea, palpitations, dizziness no other symptoms Review of Systems Review of Systems: all noted and negative except for above Physical Exam Physical Exam: General- oriented x 3, not in distress, speaks in sentences with no effort or accessory muscle use Head- atraumatic Eyes- PERRL, EOMI, anicteric ENT- oropharynx clear Neck- supple, no JVD, no adenopathy, no thyromegaly; carotids +2/2, no bruits appreciated Lungs- clear to auscultation bilaterally, no rales/wheezes Heart- normal rate, regular rhythm; no murmur, no gallop, no rub appreciated Abdomen- normal bowel sounds, nondistended, soft, nontender, no masses or hepatosplenomegaly Extremities- no pretibial edema, no calf tenderness; peripheral pulses intact Neuro- alert, oriented x 3; CN 2-12 grossly intact; motor 5/5 bilaterally;sensation 100% on all extremities; no other gross focal neurologic deficits Skin- warm & dry Results & Data Results & Data ([facility]) Vital Signs (Past 12 Hours) Vital Signs Temp Pulse Pulse Resp BP Pulse Ox 02/19/22 15:05 81 02/19/22 15:00 36.9 C 94 H 16 134/78 96 02/19/22 11:03 36.9 C 90 20 123/80 97 02/19/22 07:48 36.6 C 92 H 20 138/92 96 02/19/22 07:06 99 H all noted and reviewed including below
[2022-02-19] MEDS: MAGNESIUM OXIDE 400 MG TAB PO SCH (20:06)
[2022-02-20] MEDS: METOPROLOL SUCC 50MG EXT REL TAB PO SCH (10:08)
[2022-02-20] MEDS: RIVAROXABAN 20 MG TAB PO SCH (10:08)
[2022-02-20] MEDS: FINASTERIDE 5 MG TAB PO SCH (10:09)
[2022-02-20] MEDS: CHOLECALCIFEROL 1,000 UNITS 25 MCG TAB PO SCH (10:09)
[2022-02-20] MEDS: ASCORBIC ACID 500 MG TAB PO SCH (10:09)
[2022-02-20] MEDS: INSULIN ASPART PER UNIT SC SCH ×2 (10:13→12:24)
--- NOTE | 2022-02-20 10:24 | Cardiology Progress Note ---
Date of Service February 20, 2022 Assessment & Plan (1) Cardiac arrest due to underlying cardiac condition: (2) Atrial fibrillation with RVR: (3) Elevated troponin: Plan: I reviewed the patient's medications with him today. He is to be discharged home on 200 mg of metoprolol XL daily, Xarelto and lisinopril 10 mg daily. He was also on Lasix. He is unsure of the dosage. At this point I asked him to remain off the Lasix until he has follow-up with us. Our clinic will arrange follow-up for the device clinic. He will also see one of our automotive window tinter next week. Follow-up with general cardiology in approximately a month. Admission and Anticipated Discharge Date Admission Date: February 15, 2022 Subjective The patient had an uneventful night. He has no current cardiac complaints. Review of Systems Review of Systems: Review of Systems: See HPI for pertinent positives. All other 10 point review of systems are negative. Physical Exam Physical Exam: General: no acute distress and stated age Head: normocephalic, no masses, lesions, tenderness or abnormalities Eyes: conjunctiva are pink and non-injected, sclera clear Neck: supple, no adenopathy, no bruits, normal jugular venous pulse, no hepatojugular reflux Chest: normal shape and normal respiratory effort Lungs: clear to auscultation and percussion Cardiac Exam: - irregular rate & rhythm, no murmurs gallops or rubs - normal S1, normal S2 Pulses: 2(+) throughout Abdomen: abdomen soft, non-tender, no abnormal masses and no hepatosplenomegaly Musculoskeletal: no gait disturbance, no joint inflammation, no deforming arthritis Extremities: no edema and no cyanosis Neuro: grossly normal exam Results & Data ([facility]) Vital Signs (Past 12 Hours) Vital Signs Temp Pulse Pulse Resp BP Pulse Ox 02/20/22 07:45 90 02/20/22 07:00 36.6 C 84 16 144/101 H 96 02/20/22 03:22 36.8 C 74 18 135/79 98 02/19/22 23:14 82 02/19/22 23:05 36.7 C 99 H 18 129/73 97 Laboratory Results Laboratory Results - last 24 hr 02/19/22 02/19/22 02/19/22 11:30 16:15 20:12 POC Glucose 110 H 105 H 126 H 02/20/22 07:26 POC Glucose 90 Medications Administered Current Inpatient Medications Acetaminophen (Acetaminophen 325 Mg Tab) 650 mg PO Q4H PRN PRN Reason: Mild pain (rating 1,2,3) Stop: 03/20/22 09:17 Ascorbic Acid (Ascorbic Acid 500 Mg Tab) 500 mg PO DAILY [facility] Stop: 03/18/22 08:59 Last Admin: 02/20/22 10:09 Dose: 500 mg Documented by: Dextrose (Dextrose 50% 50 Ml Syringe) 25 - 50 ml IV UD PRN; Protocol PRN Reason: Hypoglycemia Protocol Stop: 03/19/22 15:21 Finasteride (Finasteride 5 Mg Tab) 5 mg PO DAILY KEO Stop: 03/18/22 08:59 Last Admin: 02/20/22 10:09 Dose: 5 mg Documented by: Glucagon (Glucagon For Inj 1 Mg Vial) 1 mg SQ UD PRN; Protocol PRN Reason: Hypoglycemia Protocol Stop: 03/19/22 15:21 Glucose (Glucose 10 Tabs/Tube) 4 - 8 tabs PO UD PRN; Protocol PRN Reason: Hypoglycemia Protocol Stop: 03/19/22 15:21 Glucose (Glucose 40% Gel 15 Gm Tube) 15 - 30 gm PO UD PRN; Protocol PRN Reason: Hypoglycemia Protocol Stop: 03/19/22 15:21 Insulin Aspart (Insulin Aspart Per Unit) 0 units SC ACHS [facility] Stop: 03/19/22 16:29 Last Admin: 02/20/22 10:13 Dose: 2 units Documented by: Ketorolac Tromethamine (Ketorolac Tromethamine 10 Mg Tablet) 10 mg PO Q6H PRN PRN Reason: Pain (rating 4,5,6,7,8,9,10) Stop: 02/23/22 09:17 Labetalol HCl (Labetalol Hcl Iv 5 Mg/Ml 20ml) 10 mg IV Q6H PRN PRN Reason: Hypertension Stop: 03/19/22 15:31 Last Admin: 02/19/22 03:18 Dose: 10 mg Documented by: Lisinopril (Lisinopril 10 Mg Tab) 10 mg PO QAM [facility] Stop: 03/22/22 10:29 Magnesium Oxide (Magnesium Oxide 400 Mg Tab) 400 mg PO QPM [facility] Stop: 03/18/22 20:59 Last Admin: 02/19/22 20:06 Dose: 400 mg Documented by: Metoprolol Succinate (Metoprolol Succ 50mg Ext Rel Tab) 200 mg PO QAM [facility] Stop: 03/21/22 08:59 Last Admin: 02/20/22 10:08 Dose: 200 mg Documented by: Miscellaneous (Carbohydrates For Hypoglycemia ) 15 - 30 gm PO UD PRN PRN Reason: Hypoglycemia Protocol Stop: 03/19/22 15:21 Rivaroxaban (Rivaroxaban 20 Mg Tab) 20 mg PO DAILY KEO Stop: 03/21/22 09:44 Last Admin: 02/20/22 10:08 Dose: 20 mg Documented by: Vitamin D (Cholecalciferol 1,000 Units 25 Mcg Tab) 1,000 units PO DAILY [facility] Stop: 03/18/22 08:59 Last Admin: 02/20/22 10:09 Dose: 1,000 units Documented by:
[2022-02-20] MEDS ORDERED: lisinopril 10 MG TAB PO SCH (10:30)
--- NOTE | 2022-02-20 10:50 | Hospitalist Progress Note ---
Date of Service February 20, 2022 Assessment & Plan (1) Cardiac arrest due to underlying cardiac condition: Plan: per Dr. Fernandez's notes with addendum: Cardiac arrest Atrial fibrillation with RVR Elevated troponin successful return of spontaneous circulation --ECHO: Grossly normal valvular structure and function. Left ventricle wall motion is normal. EF 60 to 65%. Right ventricle systolic function is normal. --CXR:Cardiomegaly. Pulmonary vascular congestion without overt pulmonary edema. --S/P Cardiac Cath: The patient has nonobstructive coronary artery disease of the proximal and mid segment of the LAD. The right coronary artery which is dominant and the left circumflex artery are widely patent. Appreciate cardiology, i&c tech input lipid panel: Triglycerides 218, LDL 95, total cholesterol 152 HbA1C:6.9 IV heparin discontinued Continue metoprolol Will benefit from adding Aspirin 81mg Hold statin secondary to transaminitis Started on metoprolol Had ICD placement 02/18 02/20 stable overall d/c on: Metoprolol 200mg qam usual Xarelto ff up with Cardiology clinic in 1 week for pacemaker check Hypotension on presentation Secondary to above Received IV fluids Lisinopril decreased 10mg ff up with PCP Elevated LFTs Monitor LFTs Likely secondary to ischemic hepatitis Hepatitis panel negative LFTs trending down ELLIOT Hyponatremia ? Due to diuretics, JOHNATHAN Monitor sodium, renal function Avoid nephrotoxic agents as able Received IV fluids Cr: 1.8>1.4>1.0 Sodium 131>134>136 Hypophosphatemia Replace as needed DM II New diagnosis HbA1c 6.9 ISS Underwriting Support Specialist consulted Atrial fibrillation Started on metoprolol IV heparin discontinued usual Xarelto resumed BPH On finasteride Disposition d/c home with home health services patient and prefers to go home with home health services ff up with PCP in 1 week ff up with Central Office Equipment Installer in 1 week plan of care discussed with patient and his at bedside in detail and at length all questions answered they are understanding, agreeable, comfortable with the plan of care Admission and Anticipated Discharge Date Admission Date: February 15, 2022 Subjective ff up for a fib RVR, etc seen resting in chair, comfortable in good spirits states he feels better overall no pain over PM site no chest pain, dyspnea, palpitations, dizziness no other symptom states he is ready and would like to be discharged today Review of Systems Review of Systems: all noted and negative except for above Physical Exam Physical Exam: General- oriented x 3, not in distress, speaks in sentences with no effort or accessory muscle use Eyes- anicteric Neck- no JVD Lungs- clear breath sounds bilaterally, no rales/wheezes Heart- normal rate, regular rhythm; no murmurs PM site: no hematoma/edema/discharge Abdomen- normal bowel sounds, nondistended, soft, nontender Extremities- no pretibial edema, no calf tenderness Neuro- alert, oriented x 3; no gross focal neurologic deficits Skin- warm & dry Results & Data Results & Data ([facility]) Vital Signs (Past 12 Hours) Vital Signs Temp Pulse Pulse Resp BP Pulse Ox 02/20/22 07:45 90 02/20/22 07:00 36.6 C 84 16 144/101 H 96 02/20/22 03:22 36.8 C 74 18 135/79 98 02/19/22 23:14 82 02/19/22 23:05 36.7 C 99 H 18 129/73 97 all noted and reviewed including below
--- NOTE | 2022-02-20 11:03 | Discharge Summary ---
Date of Service February 20, 2022 Admission HPI Per Admitting Provider CHIEF COMPLAINT: Status post cardiac arrest. HISTORY OF PRESENT ILLNESS: A 66-year-old male with past medical history significant for atrial fibrillation, history of hypertension, BPH, possible CHF comes with cardiac arrest. The patient is currently alert and awake. The patient says he was playing golf tournament at [employer] in [facility] [place] and began to have getting chest pain like 5/10 right-sided chest pain that radiated to the right arm and at that point, he had a cardiac arrest. At the time of cardiac arrest he received 5-6 minutes of CPR and one shock by AED and return of pulses and the patient awakened and he was life flighted here. Initially, he was hypotensive, given fluid boluses and started on iv heparin. Initially there was concern for inferior ST-elevation NV, heart alert was called, Interventional Cardiology on-call saw the patient and thought no acute ST elevation NV and he was advised to treat rapid AFib. Initially Cardizem drip was recommended but then blood pressures dropped and then Cardizem was stopped.call center assistant [facility] saw the patient, echo was ordered- seems ok. Patient is negative for COVID and plan is to monitor in the ICU. To Follow the serial cardiac enzymes. The patient currently alert and orienetd and has minimal chest discomfort. Denies any headache, no dizziness, no blurred visions, no earache, no runny nose, no sore throat. He had on and off epistaxis last episode 1 week ago. When he came into the ER, he was profusely sweating. Denies any recent fever or chills. He says he is drinking adequate amount of water, no shortness of breath, no nausea or vomiting. No abdominal pain, no diarrhea or constipation. Has some swelling in the legs. He did not have a sleep study, but he thinks he might have sleep apnea. He was diagnosed with CHF and AFib in 2012 and he was placed on lisinopril, Lasix and metoprolol. He did okay until one year ago when his AFib started acting up and there was plan for ablation, but he was started on sotalol in place of on metoprolol and he was doing fine and ablation was not planned. Admission Exam Per Admitting Provider GENERAL: The patient is morbidly obese, patient is not in acute distress. VITAL SIGNS: Temperature 36.5, pulse 96, respiratory rate 18, blood pressure 89/66, oxygen 96% on room air. HEENT: Pupils equal, round and reactive to light. Oral mucosa moist. LUNGS: No JVD, no neck masses. CARDIOVASCULAR: S1 and S2 heard. Regular rate and rhythm. No murmur, no gallop. RESPIRATORY SYSTEM: Normal AP diameter. No accessory muscle use. No wheezing, no crackles. ABDOMEN: Soft. Bowel sounds are present, nontender, no distention. CENTRAL NERVOUS SYSTEM: Cranial nerves II-XII grossly intact, nonfocal. EXTREMITIES: Lower extremity pedal edema present, no erythema seen. Principal Diagnosis ATRIAL FIBRILLATION, IN RVR, S/P CARDIAC ARREST S/P PACEMAKER PLACEMENT Discharge Exam General- oriented x 3, not in distress, speaks in sentences with no effort or accessory muscle use Eyes- anicteric Neck- no JVD Lungs- clear breath sounds bilaterally, no rales/wheezes Heart- normal rate, regular rhythm; no murmurs PM site: no hematoma/edema/discharge Abdomen- normal bowel sounds, nondistended, soft, nontender Extremities- no pretibial edema, no calf tenderness Neuro- alert, oriented x 3; no gross focal neurologic deficits Skin- warm & dry Discharge Data Allergies Allergy/AdvReac Type Severity Reaction Status Date / Time No Known Allergies Allergy Unverified 02/15/22 15:15 Consultations 02/15/22 14:54 ED Decision to Admit Stat 02/15/22 14:58 Consult Cardiology Stat 02/15/22 18:14 Consult Crystallography Teacher Routine 02/16/22 08:41 Consult Cardiac Electrophysiology Routine Procedures Performed Operation Date: 02/15/22 14:30 <No data on this case meets the specified criteria> Operation Date: 02/17/22 13:30 Actual Procedures p Cath, Left with Cors and Vent - Russell Howard DO s Cineradiography w/Routine Exam - Russell Howard DO Operation Date: 02/18/22 07:30 Actual Procedures s Venogram, Unilateral - Flo De Leon MD p ICD Insertion Single or Dual - Flo De Leon MD Ordered Studies 02/15/22 14:35 CL Cath Imgs for PACS use only Stat 02/17/22 08:00 CL Cath Imgs for PACS use only Stat 02/18/22 07:14 CL Cath Imgs for PACS use only Routine Hospital Course (1) Cardiac arrest due to underlying cardiac condition: per Dr. Fernandez's notes with addendum: Cardiac arrest Atrial fibrillation with RVR successful return of spontaneous circulation --ECHO: Grossly normal valvular structure and function. Left ventricle wall motion is normal. EF 60 to 65%. Right ventricle systolic function is normal. --CXR:Cardiomegaly. Pulmonary vascular congestion without overt pulmonary edema. --S/P Cardiac Cath: The patient has nonobstructive coronary artery disease of the proximal and mid segment of the LAD. The right coronary artery which is dominant and the left circumflex artery are widely patent. Appreciate cardiology, database management specialist input lipid panel: Triglycerides 218, LDL 95, total cholesterol 152 HbA1C:6.9 IV heparin discontinued Continue metoprolol Hold statin secondary to transaminitis Started on metoprolol Had ICD placement 02/18 02/20 stable overall d/c on: Metoprolol 200mg qam usual Xarelto ff up with Cardiology clinic in 1 week for pacemaker check Hypotension on presentation Secondary to above Received IV fluids Lisinopril decreased from 20 to 10mg ff up with PCP Elevated LFTs Likely secondary to ischemic hepatitis Hepatitis panel negative LFTs trending down ELLIOT Hyponatremia ? Due to diuretics, JOHNATHAN Monitor sodium, renal function Avoid nephrotoxic agents as able Received IV fluids Cr: 1.8>1.4>1.0 Sodium 131>134>136 DM II New diagnosis HbA1c 6.9 ISS Coordinator Of Evaluation consulted - defer DM meds to PCP ff up with PCP Atrial fibrillation Started on metoprolol IV heparin discontinued usual Xarelto resumed BPH On finasteride Disposition d/c home with home health services patient and prefers to go home with home health services ff up with PCP in 1 week ff up with Manager Market Intelligence in 1 week plan of care discussed with patient and his at bedside in detail and at length all questions answered they are understanding, agreeable, comfortable with the plan of care Total Time Total Time Spent Total Time Spent (In Minutes): >30 minutes Discharge Plan Discharge Items Patient Disposition: Home - Home Health Services Reason For Visit: CARDIAC ARREST Discharge Diagnosis: ATRIAL FIBRILLATION WITH RAPID VENTRICULAR RESPONSE S/P CARDIAC ARREST S/P PACEMAKER PLACEMENT Activity: As commented below Activity Comment: CONTINUE PT/OT AT HOME, FALL PRECAUTIONS, AMBULATE CAREFULLY WITH WALKER Lifting: Wait until after follow-up appointment Exercise/Sports: Wait until after follow-up appointment Driving/Machine Use: NO DRIVING UNTIL RE-EVALUATED AND ALLOWED BY [facility] Non-emergency contact: Primary Care Provider and Manager [employer] Call non-emergency contact if: you have any medication questions, your symptoms worsen, your pain is not controlled, your pain is worsening, your pain is unusual for you, your pain is concerning for you and you have a fever Follow-up/Referrals: Russell Howard, DO [Manager Market Intelligence] - PCP,NO [Primary Care Provider] - Diet: Carb Consistent or DM2 and Heart Healthy Addtl Attending Provider Instructions: PLEASE REFER TO YOUR NEW MEDICATION LIST AND FOLLOW INSTRUCTIONS CAREFULLY. YOUR NEW MEDICATIONS INCLUDE: METOPROLOL - for atrial fibrillation Decrease Lisinopril to 10mg daily. PLEASE CALL YOUR PRIMARY CARE PHYSICIAN OR RETURN TO THE ER IF WITH WORSENING OF SYMPTOMS, INCLUDING INCREASING PAIN, SWELLING, DISCHARGE FROM PACEMAKER SITE, CHEST PAIN, SHORTNESS OF BREATH, PALPITATIONS, DIZZINESS, ETC. FOLLOW UP WITH PRIMARY CARE PHYSICIAN IN 1 WEEK. FOLLOW UP WITH RIBBON TIER DR. HOWARD IN 1 WEEK. THE CLINIC WILL BE CALLING YOU SOON FOR THE APPOINTMENT. ACTIVITY RECOMMENDATIONS: * Do not raise affected arm over head for 2 weeks. SPECIAL CARE INSTRUCTIONS: * If bleeding occurs, apply direct pressure to area for 5 minutes. * Call your doctor if you have severe pain, fever, drainage or bleeding at site. * Keep dressing on and dry for 24 hours then remove. * Keep any scheduled doctor's appointment. * Implant Card - with website information given. SKIN IRRITATION: * You may experience some redness and/or swelling in the area where radiation was administered. If any skin irritation occurs, please contact your family p [email or web address]. FOLLOW UP VISIT: Keep any scheduled doctor appointments. Pending Studies at Discharge: No Stand-Alone Forms: My Surv[employer], Smoking Cessation Medications and DC Order Prescriptions: New metoprolol succinate 50 mg Tablet Extended Release 24 Hr 200 mg PO QAM 30 Days Qty: 120 RF: 2 Continued furosemide 40 mg Tablet 40 mg PO DAILY RF: 0 ascorbic acid (vitamin C) [Vitamin C] 500 mg Tablet 500 mg PO DAILY RF: 0 cyanocobalamin (vitamin B-12) [Vitamin B-12] 1,000 mcg/mL Solution 1,000 mcg IM MONTHLY RF: 0 finasteride 5 mg Tablet 5 mg PO DAILY RF: 0 cholecalciferol (vitamin D3) [Vitamin D3] 25 mcg (1,000 unit) Tablet 25 mcg PO DAILY RF: 0 Xarelto 20 mg Tablet 20 mg PO DAILY RF: 0 Changed lisinopril 20 mg Tablet 10 mg PO DAILY Qty: 0 RF: 0 Discontinued sotalol 120 mg Tablet 120 mg PO BID RF: 0 Discharge Orders: Discharge Order (Routine); Ordered 02/20/22 Ordered By: Yosi Aleman Admission Data Admit Date/Time: 02/15/22 16:24 Attending Provider: Yosi Aleman Admit Provider: Trey Quinn Primary Care Provider: PCP,NO Other Providers: Trey Quinn ; Russell Howard ; Julio Taylor ; Rajiv Gooden ; Yovanny Fernandez
--- NOTE | 2022-02-25 08:25 | Coding Query ---
CODING QUERY To promote full compliance with coding requirements relating to patient care, provider participation is requested in all cases of armed custom protection officer uncertainty. Please assist us with the question(s) below: Coding Question(s): Pt admitted s/p cardiac arrest in the field in the setting of atrial fibrillation. During this hospital stay patient had a ICD defibrillator implanted. Please document, if known or suspected, the etiology of the cardiac arrest. Thanks for your help! Iggy Ramirez LABORER [employer] [facility] Physician's Response(s): Atrial Fibrilation with Rapid Ventricular Response Principal Diagnosis: "that condition established after study, to be chiefly responsible for occasioning the admission of the patient to the hospital for care." Co-Existing Principal Diagnosis: "when two or more diagnoses equally meet the criteria for principal diagnosis as determined by the circumstances of admission, diagnostic work up, and/or therapy provided, and the Alphabetic Index, Tabular List, or another coding guideline does not provide sequencing direction, any one of the diagnoses may be sequenced first." "When the physician has documented what appears to be a current diagnosis in the body of the record, but has not included the diagnosis in the final diagnostic statement, the physician should be asked whether the diagnosis should be added." (Source Coding [facility] 2 QTR90. p3-4) SAMANTHA
== END 2022-02-20 12:35 | disposition home health service (06) | DRG 224 ==
LOC: ED 14:22 → 1E 16:24 → SUATTDRO 16:24 → 1E 17:23 → 2S 02-18 07:35
PROC: EPB.ICD (2022-02-18 07:30)